=== PATIENT | female | born 1935 | race Caucasian/White ===

== ENCOUNTER 2022-08-14 22:47 | Observation (INO) | payer MEDICARE ==
[2022-08-14] MEDS ORDERED: ONDANSETRON 4 MG/2 ML VIAL IVP STA (23:01)
[2022-08-14] MEDS ORDERED: SODIUM CHLORIDE 0.9% 1,000 ML IV STA (23:01)
--- NOTE | 2022-08-14 23:03 | ED ---
Abdominal Pain HPI - General Chief Complaint: Abdominal Pain Stated Complaint: Diarrhea Time Seen by Provider: 08/14/22 23:00 Source: patient, RN notes reviewed, old records reviewed Mode of arrival: EMS Limitations: no limitations - History of Present Illness Initial Comments: This is a 86-year-old female DF for evaluation patient Dese for evaluation r egarding nausea vomiting diarrhea abdominal pain. She is on day 3 of these symptoms. Does not feel well calling EMS to come the hospital she cannot go to bed at home secondary to weakness. Patient continues to feel weak in the ER. No recent fevers still with no travel history no similar patient's her friends or sick contacts or similar symptoms MD Complaint: abdominal pain -: days(s) (3) Location: diffuse Radiation: none Migration to: epigastric, suprapubic Severity: moderate Severity scale (1-10): 4 Quality: cramping, aching Consistency: intermittent Improves With: nothing Associated Symptoms: nausea, vomiting, diarrhea Treatments Prior to Arrival: other (0) - Related Data Allergies Allergy/AdvReac Type Severity Reaction Status Date / Time lisinopril Allergy Unknown Verified 08/14/22 22:54 Review of Systems ROS Statement: Those systems with pertinent positive or pertinent negative responses have been documented in the HPI. ROS Other: All systems not noted in ROS Statement are negative. General Exam Limitations: no limitations General appearance: alert, in no apparent distress Head exam: Present: atraumatic, normocephalic, normal inspection Eye exam: Present: normal appearance, PERRL, EOMI. Absent: scleral icterus, conjunctival injection, periorbital swelling ENT exam: Present: normal exam, mucous membranes moist Neck exam: Present: normal inspection. Absent: tenderness, meningismus, lympha denopathy Respiratory exam: Present: normal lung sounds bilaterally. Absent: respiratory distress, wheezes, rales, rhonchi, stridor Cardiovascular Exam: Present: regular rate, normal rhythm, normal heart sounds. Absent: systolic murmur, diastolic murmur, rubs, gallop, clicks GI/Abdominal exam: Present: soft, normal bowel sounds. Absent: distended, tenderness, guarding, rebound, rigid Extremities exam: Present: normal inspection, full ROM, normal capillary refill. Absent: tenderness, pedal edema, joint swelling, calf tenderness Back exam: Present: normal inspection Neurological exam: Present: alert, oriented X3, CN II-XII intact Psychiatric exam: Present: normal affect, normal mood Skin exam: Present: warm, dry, intact, normal color. Absent: rash Course Vital Signs 08/14/22 22:57 Temperature 97.7 F Pulse Rate 75 Respiratory 16 Rate Blood Pressure 155/85 O2 Sat by Pulse 99 Oximetry - Reevaluation(s) Reevaluation #1: 08/15/22 01:53 Record is reviewed Reevaluation #2: 08/15/22 01:53 Patient still having episodes of vomiting and weakness Reevaluation #3: 08/15/22 01:53 Patient informed results and questions answered - Consultations Consultation #1: Spoke with admitting physicians will admit this patient Medical Decision Making - Medical Decision Making 6 female DF for evaluation persistent nausea vomiting and diarrhea abdominal pain. Patient be admitted for supportive care - Lab Data Result diagrams: 08/14/22 23:27 08/14/22 23:27 Lab Results 08/14/22 08/14/22 08/14/22 Range/Units 23:27 23:27 23:27 WBC 5.5 (3.8-10.6) k/uL RBC 4.49 (3.80-5.40) m/uL Hgb 14.4 (11.4-16.0) gm/dL Hct 41.0 (34.0-46.0) % MCV 91.5 (80.0-100.0) fL MCH 32.1 (25.0-35.0) pg MCHC 35.1 (31.0-37.0) g/dL RDW 13.3 (11.5-15.5) % Plt Count 245 (150-450) k/uL MPV 9.4 Neutrophils % 72 % Lymphocytes % 11 % Monocytes % 11 % Eosinophils % 1 % Basophils % 2 % Neutrophils # 4.0 (1.3-7.7) k/uL Lymphocytes # 0.6 L (1.0-4.8) k/uL Monocytes # 0.6 (0-1.0) k/uL Eosinophils # 0.1 (0-0.7) k/uL Basophils # 0.1 (0-0.2) k/uL Sodium 135 L (137-145) mmol/L Potassium 3.3 L (3.5-5.1) mmol/L Chloride 103 (98-107) mmol/L Carbon Dioxide 24 (22-30) mmol/L Anion Gap 8 mmol/L BUN 12 (7-17) mg/dL Creatinine 0.63 (0.52-1.04) mg/dL Est GFR (CKD-EPI)AfAm >90 (>60 ml/min/1.73 sqM) Est GFR (CKD-EPI)NonAf 83 (>60 ml/min/1.73 sqM) Glucose 89 (74-99) mg/dL Plasma Lactic Acid Edu 1.6 (0.7-2.0) mmol/L Calcium 8.9 (8.4-10.2) mg/dL Phosphorus 2.8 (2.5-4.5) mg/dL Magnesium 1.7 (1.6-2.3) mg/dL Total Bilirubin 0.5 (0.2-1.3) mg/dL AST 42 H (14-36) U/L ALT 27 (4-34) U/L Alkaline Phosphatase 94 (38-126) U/L Troponin I (0.000-0.034) ng/mL Total Protein 6.0 L (6.3-8.2) g/dL Albumin 3.6 (3.5-5.0) g/dL Lipase 89 (23-300) U/L 08/14/22 Range/Units 23:27 WBC (3.8-10.6) k/uL RBC (3.80-5.40) m/uL Hgb (11.4-16.0) gm/dL Hct (34.0-46.0) % MCV (80.0-100.0) fL MCH (25.0-35.0) pg MCHC (31.0-37.0) g/dL RDW (11.5-15.5) % Plt Count (150-450) k/uL MPV Neutrophils % % Lymphocytes % % Monocytes % % Eosinophils % % Basophils % % Neutrophils # (1.3-7.7) k/uL Lymphocytes # (1.0-4.8) k/uL Monocytes # (0-1.0) k/uL Eosinophils # (0-0.7) k/uL Basophils # (0-0.2) k/uL Sodium (137-145) mmol/L Potassium (3.5-5.1) mmol/L Chloride (98-107) mmol/L Carbon Dioxide (22-30) mmol/L Anion Gap mmol/L BUN (7-17) mg/dL Creatinine (0.52-1.04) mg/dL Est GFR (CKD-EPI)AfAm (>60 ml/min/1.73 sqM) Est GFR (CKD-EPI)NonAf (>60 ml/min/1.73 sqM) Glucose (74-99) mg/dL Plasma Lactic Acid Edu (0.7-2.0) mmol/L Calcium (8.4-10.2) mg/dL Phosphorus (2.5-4.5) mg/dL Magnesium (1.6-2.3) mg/dL Total Bilirubin (0.2-1.3) mg/dL AST (14-36) U/L ALT (4-34) U/L Alkaline Phosphatase (38-126) U/L Troponin I <0.012 (0.000-0.034) ng/mL Total Protein (6.3-8.2) g/dL Albumin (3.5-5.0) g/dL Lipase (23-300) U/L - Radiology Data Radiology results: report reviewed (CT of the abdomen and pelvis negative for acute disease), image reviewed Disposition Clinical Impression: Abdominal pain, Gastroenteritis, Nausea & vomiting Disposition: ADMITTED IP TO THIS [facility] Condition: Good Is patient prescribed a controlled substance at d/c from ED?: No Referrals: None,Stated [Primary Care Provider] - 1-2 days Time of Disposition: 02:00
[2022-08-14 23:59] LABS: ALT 27 U/L (4-34); AST 42 U/L (14-36); African American GFR (CKD) >90 (>60 ml/min/1.73 sqM); Albumin 3.6 g/dL (3.5-5.0); Alkaline Phosphatase 94 U/L (38-126); Anion Gap 8 mmol/L; Blood Urea Nitrogen 12 mg/dL (7-17); Calcium 8.9 mg/dL (8.4-10.2); Carbon Dioxide 24 mmol/L (22-30); Chloride 103 mmol/L (98-107); Glucose 89 mg/dL (74-99); Lipase 89 U/L (23-300); Magnesium 1.7 mg/dL (1.6-2.3); Non-African American GFR(CKD) 83 (>60 ml/min/1.73 sqM); Phosphorus 2.8 mg/dL (2.5-4.5); Potassium 3.3 mmol/L (3.5-5.1); Sodium 135 mmol/L (137-145); Total Bilirubin 0.5 mg/dL (0.2-1.3)
[2022-08-15 00:07] LABS: Basophils # (A) 0.1 k/uL (0-0.2); Basophils % (A) 2 %; Eosinophils # (A) 0.1 k/uL (0-0.7); Eosinophils % (A) 1 %; HGB 14.4 gm/dL (11.4-16.0); Lymphocytes # (A) 0.6 k/uL (1.0-4.8); Lymphocytes % (A) 11 %; MCH 32.1 pg (25.0-35.0); MCHC 35.1 g/dL (31.0-37.0); MCV 91.5 fL (80.0-100.0); Mean Platelet Volume 9.4; Monocytes # (A) 0.6 k/uL (0-1.0); Monocytes % (A) 11 %; Neutrophils % (A) 72 %; Platelet Count 245 k/uL (150-450); RBC 4.49 m/uL (3.80-5.40); RDW 13.3 % (11.5-15.5); WBC 5.5 k/uL (3.8-10.6)
[2022-08-15] MEDS ORDERED: MORPHINE SULFATE 4 MG/ML SYRINGE IVP STA (01:12)
--- NOTE | 2022-08-15 01:14 | CT ---
EXAMINATION TYPE: CT abdomen pelvis wo con DATE OF EXAM: 08/15/2022 COMPARISON: None HISTORY: ABD PAIN CT DLP: 678.4 mGycm Automated exposure control for dose reduction was used. Images obtained from the diaphragm to the floor the pelvis without contrast. There is some oral contr ast material in the large bowel. The lung bases are clear of consolidation. No pleural effusion. Heart is slightly enlarged. No perica rdial effusion. There is some fatty replacement of the liver. Gallbladder is intact. Spleen is intact. There is no ev idence of a gastric mass. There is no adrenal mass. Kidneys have normal size. No hydronephrosis. There is 3.7 cm cortical cyst lateral right kidney. No retroperitoneal adenopathy. Bladder distends smoothly. There is metal artifa ct from bilateral hip nailing. No evidence of a pelvic mass. There are numerous sigmoid diverticula. No diverticulitis. There is 7.2 cm aneurysm of the lower abdominal aorta. There is some thrombus on the posterior wall m easuring up to 1.3 cm in thickness. There is moderate vascular calcification in the abdominal aorta a nd the iliac arteries. The appendix is not clearly seen. No sign of thickened appendix. There is anterior wedging and compression deformity at L1 and T12 of approximately 50%. There is a mi ld kyphotic deformity at the thoracolumbar junction. The bony pelvis is intact. Sacroiliac joints are intact. IMPRESSION: Large lower abdominal aortic aneurysm. No evidence of a leak. Atherosclerotic vascular disease. Colonic diverticulosis without diverticulitis. Fatty infiltration of the liver.
[2022-08-15] MEDS ORDERED: POTASSIUM BICARBONATE/CIT AC 20 MEQ TABLET.EFF PO STA (01:21)
[2022-08-15] MEDS ORDERED: ONDANSETRON 4 MG/2 ML VIAL IVP PRN (01:51)
[2022-08-15] MEDS ORDERED: NALOXONE 0.4 MG/ML 1 ML VIAL IV PRN (01:51)
[2022-08-15] MEDS ORDERED: MORPHINE SULFATE 4 MG/ML SYRINGE IV PRN (01:51)
[2022-08-15] MEDS: SODIUM CHLORIDE 0.9% 1,000 ML IV SCH ×3 (02:02→20:21)
[2022-08-15] MEDS ORDERED: oxyCODONE-APAP 7.5-325MG 1 EACH TAB PO STA (04:19)
[2022-08-15] MEDS: oxyCODONE-APAP 7.5-325MG 1 EACH TAB PO PRN ×2 (11:33→21:54)
[2022-08-15] MEDS ORDERED: Magnesium Replacement Protocol 1 EACH MISC MISCELLANE PRN (12:12)
[2022-08-15] MEDS ORDERED: Potassium Replacement Protocol 1 EACH MISC MISCELLANE PRN (12:12)
[2022-08-15] MEDS: traZODone HCL 50 MG TAB PO SCH (20:21)
--- NOTE | 2022-08-15 22:50 | HP ---
HISTORY AND PHYSICAL CHIEF COMPLAINT: Abdominal pain, diarrhea. HISTORY OF PRESENT ILLNESS: This 86-year-old woman with a past medical history of multiple medical problems including hypertension, DJD, was complaining of abdominal pain and diarrhea for the last several days. The patient also notes she is not able to keep anything down. The patient called the EMS and was complaining of severe weakness, and admitted for further evaluation and treatment. CAT scan of the abdomen and pelvis showed no evidence of any diverticulitis, but only abdominal aortic aneurysm. The patient was found to be hyponatremia and hypokalemia. There is no history of any fever, rigors, or chills. PAST MEDICAL HISTORY: Reviewed, include hypertension. History and rest of the medication reviewed, rest of the chart is reviewed. HOME MEDICATIONS: Reviewed, include Desyrel dose and rest of medication reviewed. ALLERGIES: Lisinopril. FAMILY HISTORY: History of cancer. SOCIAL HISTORY: Previous history of smoking, occasional alcohol. REVIEW OF SYSTEMS: Fourteen-point review of systems negative as mentioned earlier. PHYSICAL EXAMINATION: VITAL SIGNS: Pulse is 84, blood pressure , respirations 19. HEENT: Conjunctivae normal. CARDIOVASCULAR: S1, S2 muffled. RESPIRATION: Breath sounds diminished at the bases. A few scattered rhonchi. ABDOMEN: Soft, mild diffuse discomfort. No guarding. No rigidity. No mass palpable. LEGS: No edema. NERVOUS SYSTEM: No focal deficits. LABS: WBC 5.4. Rest of the labs noted. ASSESSMENT: 1. Acute diarrheal disorder and acute gastroenteritis with severe dehydration. 2. Abdominal pain for evaluation. 3. Hypertension. 4. Hypokalemia. 5. Hyponatremia. RECOMMENDATIONS: This 86-year-old woman presented with multiple complex medical issues. We will monitor the patient closely. Recommend IV fluids. Repeat lytes. Repeat labs. Resume the home medications. Symptomatic treatment. We will check C difficile. Prognosis guarded because of multiple complex medical issues. Follow recommendations to follow. See orders for details. We will also check COVID-19 also. MMODL / IJN: [id number] /
[2022-08-16] MEDS: oxyCODONE-APAP 7.5-325MG 1 EACH TAB PO PRN ×3 (02:03→16:55)
[2022-08-16] MEDS: SODIUM CHLORIDE 0.9% 1,000 ML IV SCH ×3 (02:18→16:40)
[2022-08-16] MEDS: PANTOPRAZOLE 40 MG TABLET PO SCH (05:01)
[2022-08-16] MEDS: POTASSIUM CHLORIDE ER 20 MEQ TAB.ER PO SCH (08:14)
[2022-08-16] MEDS: amLODIPine 10 MG TAB PO SCH (08:14)
[2022-08-16] MEDS: ATORVASTATIN 40 MG TAB PO SCH (08:18)
[2022-08-16 08:58] LABS: Basophils # (A) 0.07 X 10*3/uL (0.00-0.10); Basophils % (A) 1.2 %; Eosinophils # (A) 0.16 X 10*3/uL (0.04-0.35); Eosinophils % (A) 2.7 %; HCT 41.1 % (37.2-46.3); HGB 13.6 g/dL (12.0-15.0); Immature Grans, Automated 0.3 %; Lymphocytes # (A) 0.99 X 10*3/uL (0.90-5.00); Lymphocytes % (A) 16.6 %; MCH 30.6 pg (27.0-32.0); MCHC 33.1 g/dL (32.0-37.0); MCV 92.6 fL (80.0-97.0); Mean Platelet Volume 10.8 fL (9.5-12.2); Monocytes # (A) 1.08 X 10*3/uL (0.20-1.00); Monocytes % (A) 18.1 %; NRBC Per 100 WBC 0 /100 WBCS (0.0-0.0); Neutrophils # (A) 3.64 X 10*3/uL (1.80-7.70); Neutrophils % (A) 61.1 %; Platelet Count 284 X 10*3/uL (140-440); RBC 4.44 X 10*6/uL (4.10-5.20); RDW 13.3 % (11.5-14.5); WBC 5.96 X 10*3/uL (4.50-10.00)
[2022-08-16 09:18] LABS: Albumin 3.8 g/dL (3.8-4.9); Albumin/Globulin Ratio 2.24 (1.60-3.17); Anion Gap 9.3 mmol/L (10.00-18.00); Blood Urea Nitrogen 7.8 mg/dL (9.0-27.0); Calcium 8.9 mg/dL (8.7-10.3); Carbon Dioxide 26.7 mmol/L (20.0-27.5); Globulin 1.7 g/dL (1.6-3.3); Magnesium 1.6 mg/dL (1.5-2.4); Non-African American GFR(CKD) 83.7 (60.0-200.0); Phosphorus 3.1 mg/dL (2.4-5.1); Potassium 3.8 mmol/L (3.5-5.5); Total Bilirubin 0.4 mg/dL (0.30-1.20); Total Protein 5.5 g/dL (6.2-8.2)
[2022-08-16] MEDS ORDERED: Magnesium Replacement Protocol 1 EACH MISC MISCELLANE PRN (11:00)
[2022-08-16] MEDS: MAGNESIUM SULFATE-D5W PMX 1 GM in DEXTROSE/WATER 1 100ML.BAG IVPB SCH ×2 (12:01→14:08)
[2022-08-16] MEDS: traZODone HCL 50 MG TAB PO SCH (21:07)
[2022-08-17] MEDS: SODIUM CHLORIDE 0.9% 1,000 ML IV SCH ×2 (02:00→20:35)
[2022-08-17] MEDS: oxyCODONE-APAP 7.5-325MG 1 EACH TAB PO PRN ×3 (02:43→21:39)
[2022-08-17] MEDS: PANTOPRAZOLE 40 MG TABLET PO SCH (05:42)
--- NOTE | 2022-08-17 06:03 | P.PN ---
Subjective Progress Note Date: 08/17/22 08/16/2022 Patient is seen in follow up today and is maintained on clear liquids. Recently admitted with abdominal pain, weakness, dehydration, and diarrhea. Patient reports improvement in nausea and vomiting and no further diarrhea and asking for advance in diet. Patient is up and walking with a walker to the bathroom and back and reports to working with PT/OT therapy. Being evaluated for weakness. Richard katy is refusing rehab if recommended and reports she will be going home. Patient is afebrile and denies chest pain or shortness of breath. Patient continued on IV hydration and will decrease the rate. Encouraged small frequent meals and slowly advance as tolerated. Will increase to low fiber and monitor for tolerance. C diff was ordered but patient has had no further bowel movements. Review of systems: Constitutional: No reports of fatigue, fever, or chills Cardiovascular: No reports of chest pain or palpitations Respiratory: No reports of shortness of breath or cough GI: No reports of nausea, vomiting, or diarrhea, reports passing gas : No reports of dysuria or retention Neurovascular: reports of generalized weakness, but feeling better All medications have been reviewed PHYSICAL EXAMINATION: GENERAL: The patient is currently awake, alert and oriented 3, Well developed, well nourished. HEENT: Pupils are round and equally reacting to light. EOMI. does have scleral icterus. No conjunctival pallor. Normocephalic, atraumatic. No pharyngeal erythema. No thyromegaly. CARDIOVASCULAR: S1 and S2 muffled PULMONARY: diminished breath sounds bilaterally with no wheezing or rhonchi noted. ABDOMEN: soft. non-tender on exam. non-distended, normoactive bowel sounds. No palpable organomegaly. MUSCULOSKELETAL: No joint swelling or deformity. EXTREMITIES: No cyanosis, clubbing, or pedal edema. NEUROLOGICAL: No gross neurological deficits noted. Diffuse weakness SKIN: No rashes. Assessment: Acute diarrheal disorder and acute gastroenteritis with severe dehydration Abdominal pain, improving hypertension hyperlipidemia Hypokalemia due to poor oral intake and diarrhea, improved hyponatremia due to poor oral intake and diarrhea, improved GI and DVT prophylaxis Full code Plan: Patient will be continued on gentle IV hydration Continued on clear liquids and tolerating reporting no further N/V/D and requesting increase in diet. Will advance to low fiber and monitor tolerance PT/OT to evaluate. Patient is refusing rehab and reports will be going home once discharged Case management/ social work following for discharge planning needs Possible discharge in 24 hours. The impression and plan of care has been dictated by Michelle Archuleta, prac titioner as directed. MD Gwendolyn I have performed a history and examination and MDM of this patient, discussed the same with the dictator, and agree with the dictator's assessment and plan as written ,documented as a scribe. Based on total visit time, I have performed more than 50% of the visit. Objective - Vital Signs Vital signs: Vital Signs Temp 97.7 F 08/16/22 07:00 Pulse 73 08/16/22 08:00 Resp 18 08/16/22 08:00 BP 145/79 08/16/22 07:00 Pulse Ox 91 L 08/16/22 07:00 FiO2 Intake & Output 08/15/22 08/16/22 08/16/22 18:59 06:59 18:59 Weight 80.286 kg Other: # Voids 3 2 - Labs CBC & Chem 7: 08/16/22 05:57 08/16/22 05:57 Labs: Abnormal Lab Results - Last 24 Hours (Table) 08/16/22 08/16/22 Range/Units 05:57 05:57 Monocytes # 1.08 H (0.20-1.00) X 10*3/uL Anion Gap 9.30 L (10.00-18.00) mmol/L BUN 7.8 L (9.0-27.0) mg/dL Glucose 112 H (70-110) mg/dL Total Protein 5.5 L (6.2-8.2) g/dL
[2022-08-17] MEDS: ATORVASTATIN 40 MG TAB PO SCH (09:32)
[2022-08-17] MEDS: amLODIPine 10 MG TAB PO SCH (09:32)
[2022-08-17] MEDS: POTASSIUM CHLORIDE ER 20 MEQ TAB.ER PO SCH (09:32)
[2022-08-17] MEDS: traZODone HCL 50 MG TAB PO SCH (20:35)
--- NOTE | 2022-08-18 05:33 | P.PN ---
Subjective Progress Note Date: 08/17/22 08/16/2022 Patient is seen in follow up today and is maintained on clear liquids. Recently admitted with abdominal pain, weakness, dehydration, and diarrhea. Patient reports improvement in nausea and vomiting and no further diarrhea and asking for advance in diet. Patient is up and walking with a walker to the bathroom and back and reports to working with PT/OT therapy. Being evaluated for weakness. Richard burns is refusing rehab if recommended and reports she will be going home. Patient is afebrile and denies chest pain or shortness of breath. Patient continued on IV hydration and will decrease the rate. Encouraged small frequent meals and slowly advance as tolerated. Will increase to low fiber and monitor for tolerance. C diff was ordered but patient has had no further bowel movements. 08/17/2022 Patient is seen this morning and lethargic but arousable. Patient reports to feeling tired and weak today. Patient reports she did have another episode of loose stool and have attempted to send for c diff, suspicion is low as patient has only had one bowel movement. Patient denies nausea or vomiting. Encouraged oral intake and increased activity as tolerated. Working on discharge planning. Patient is refusing rehab. Afebrile and denies chest pain or shortness of breath. Review of systems: Constitutional: reports of fatigue, no fever, or chills Cardiovascular: No reports of chest pain or palpitations Respiratory: No reports of shortness of breath or cough GI: No reports of nausea, vomiting, reports diarrhea last night x1, reports passing gas : No reports of dysuria or retention Neurovascular: reports of generalized weakness, but feeling better All medications have been reviewed PHYSICAL EXAMINATION: GENERAL: The patient is currently lethargic but arousable, alert and oriented 3, Well developed, well nourished. HEENT: Pupils are round and equally reacting to light. EOMI. does have scleral icterus. No conjunctival pallor. Normocephalic, atraumatic. No pharyngeal erythe ma. No thyromegaly. CARDIOVASCULAR: S1 and S2 muffled PULMONARY: diminished breath sounds bilaterally with no wheezing or rhonchi noted. ABDOMEN: soft. non-tender on exam. non-distended, normoactive bowel sounds. No palpable organomegaly. MUSCULOSKELETAL: No joint swelling or deformity. EXTREMITIES: No cyanosis, clubbing, or pedal edema. NEUROLOGICAL: No gross neurological deficits noted. Diffuse weakness SKIN: No rashes. Assessment: Acute diarrheal disorder and acute gastroenteritis with severe dehydration Abdominal pain, improving hypertension hyperlipidemia Hypokalemia due to poor oral intake and diarrhea, improved hyponatremia due to poor oral intake and diarrhea, improved GI and DVT prophylaxis Full code Plan: Patient will be continued on gentle IV hydration Continued on low fiber diet. and tolerating PT/OT to evaluate. Patient is refusing rehab and reports will be going home once discharged Case management/ social work following for discharge planning needs Will obtain am labs Possible discharge in 24 hours. The impression and plan of care has been dictated by Michelle Archuleta, nurse practitioner as directed. MD Gwendolyn I have performed a history and examination and MDM of this patient, discussed the same with the dictator, and agree with the dictator's assessment and plan as written ,documented as a scribe. Based on total visit time, I have performed more than 50% of the visit. Objective - Vital Signs Vital signs: Vital Signs Temp 98.1 F 08/17/22 12:48 Pulse 80 08/17/22 12:48 Resp 16 08/17/22 12:48 BP 119/66 08/17/22 12:48 Pulse Ox 98 08/17/22 12:48 FiO2 Intake & Output 08/16/22 08/17/22 08/17/22 18:59 06:59 18:59 Intake Total 600 358 Balance 600 358 Intake: Intake, IV Titration 100 Amount Magnesium Sulfate-D5w Pmx 100 1 gm In Dextrose/Water 1 100ml.bag @ 100 mls/hr IVPB Q1H ELIJAH Rx#: [id number] Oral 500 358 Other: Voiding Method Toilet # Voids 3 2 # Bowel Movements 1 - Labs CBC & Chem 7: 08/16/22 05:57 08/16/22 05:57
[2022-08-18] MEDS: PANTOPRAZOLE 40 MG TABLET PO SCH (06:13)
[2022-08-18] MEDS: oxyCODONE-APAP 7.5-325MG 1 EACH TAB PO PRN ×2 (09:21→15:47)
[2022-08-18] MEDS: amLODIPine 10 MG TAB PO SCH (09:21)
[2022-08-18] MEDS: ATORVASTATIN 40 MG TAB PO SCH (09:22)
[2022-08-18] MEDS: POTASSIUM CHLORIDE ER 20 MEQ TAB.ER PO SCH (09:22)
[2022-08-18 10:33] LABS: African American GFR (CKD) 92.2 (60.0-200.0); Anion Gap 6.9 mmol/L (10.00-18.00); BUN/Creat Ratio 12.14 Ratio (12.00-20.00); Blood Urea Nitrogen 8.5 mg/dL (9.0-27.0); Carbon Dioxide 27.1 mmol/L (20.0-27.5); Magnesium 1.8 mg/dL (1.5-2.4); Non-African American GFR(CKD) 79.6 (60.0-200.0); Potassium 4.2 mmol/L (3.5-5.5)
[2022-08-18 12:09] VITALS: BP 119/66; PULSE 76; RESP 16; TEMP 97.9
[2022-08-22] MEDS ORDERED: NON FORMULARY DRUG (Alendronate Sodium [Fosamax] 70 MG Tablet) PO SCH (09:00)
--- NOTE | 2022-08-22 15:07 | P.DS ---
Providers Date of admission: 08/15/22 01:51 Expected date of discharge: 08/18/22 Attending physician: Lisa Pelayo Primary care physician: Stated None Hospital Course: Final diagnosis Acute diarrheal disorder and acute gastroenteritis with severe dehydration Abdominal pain, improved hypertension hyperlipidemia Hypokalemia due to poor oral intake and diarrhea, improved hyponatremia due to poor oral intake and diarrhea, improved GI and DVT prophylaxis Full code Discharge disposition Patient is being discharged in a stable condition with guarded prognosis to home . Patient will follow-up with Dr. Morris or other resources in the outpatient setting upon discharge. Patient is to follow up as needed with ortho if back pain persists. Patient referred to the wound center with Dr. Lopez for her chronic leg skin changes per her request. Total time taken is greater than 35 minutes. Hospital course This is a 86-year-old female who was recently admitted weakness along with N/V/D and dehydration. Patient also with sciatic pain and reporting weakness. Patient was seen by PT recommending home with home care. Patient feeling improved and would like to go home. Patient reports she was not happy with her current pcp and would like to switch. Resources provided per her request. Patient also with sciatic back pain and given resources to follow up with orthopedics outpatient. Currently no reports of chest pain, shortness of breath, or palpitations. Patient is afebrile. No reports of nausea or vomiting and patient is tolerating diet. Patient will be discharged home today. Guarded prognosis. Physical exam: Gen: This is a 86 year old female who is awake, alert and oriented x3. well developed, well nourished HEENT: Head is atraumatic, normocephalic. Pupils equal, round. Sclerae is anicteric. NECK: Supple. No JVD. No lymphadenopathy. No thyromegaly. LUNGS: Clear to auscultation. No wheezes or rhonchi. No intercostal retractions. HEART: Regular rate and rhythm. No murmur. ABDOMEN: Soft. Bowel sounds are present. No masses. No tenderness. EXTREMITIES: No pedal edema. No calf tenderness. lower extremity chronic edema noted NEUROLOGICAL: Patient is awake, alert and oriented x3. Cranial nerves 2 through 12 are grossly intact. Please refer to medication reconciliation sheet for a list of medications. The impression and plan of care has been dictated by Michelle Archuleta, Nurse Practitioner as directed. Dr. Sheila MD I have performed a history and examination and MDM of this patient, discussed the same with the dictator, and agree with the dictator's assessment and plan as written ,documented as a scribe. Based on total visit time, I have performed more than 50% of the visit. Patient Condition at Discharge: Good Plan - Discharge Summary Discharge Rx Participant: Yes New Discharge Prescriptions: New oxyCODONE-APAP 7.5-325MG [Percocet 7.5-325 mg] 1 each PO Q4HR PRN #9 tab PRN Reason: Pain Furosemide [Lasix] 40 mg PO DAILY 30 Days #30 tablet Continue traZODone HCL [Desyrel] 25 mg PO HS amLODIPine [Norvasc] 10 mg PO DAILY Omeprazole [PriLOSEC] 20 mg PO DAILY Potassium Chloride [Klor-Con M20] 20 meq PO DAILY Atorvastatin Calcium [Lipitor] 40 mg PO DAILY Alendronate Sodium [Fosamax] 70 mg PO WEEKLY Discontinued Triamterene/Hydrochlorothiazid [Triamterene-Hctz 75-50 mg Tab] 1 tab PO DAILY Discharge Medication List Alendronate Sodium [Fosamax] 70 mg PO WEEKLY 08/15/22 [History] Atorvastatin Calcium [Lipitor] 40 mg PO DAILY 08/15/22 [History] Omeprazole [PriLOSEC] 20 mg PO DAILY 08/15/22 [History] Potassium Chloride [Klor-Con M20] 20 meq PO DAILY 08/15/22 [History] amLODIPine [Norvasc] 10 mg PO DAILY 08/15/22 [History] traZODone HCL [Desyrel] 25 mg PO HS 08/15/22 [History] Furosemide [Lasix] 40 mg PO DAILY 30 Days #30 tablet 08/18/22 [Rx] oxyCODONE-APAP 7.5-325MG [Percocet 7.5-325 mg] 1 each PO Q4HR PRN #9 tab 08/18/22 [Rx] Follow up Appointment(s)/Referral(s): Natalia Sinha DO [Doctor of Osteopathic Medicine] - 1 Week (PLEASE CALL AND SCHEDULE APPOINTMENT.) Andrew Morris MD [STAFF PHYSICIAN] - 1 Week Coleman Harris DO [STAFF PHYSICIAN] - 1 Week [facility] [NON-STAFF] - 1 Week (AGENCY WILL CONTACT YOU.) Delia Lopez MD [STAFF PHYSICIAN] - 08/31/22 1:30 pm called his office to make an appointment with Dr. Lopez at the wound care center at [facility] for lower extremity swelling and skin changes. Orthodontist Assistant called [facility] and staff stated that this patient would need to be seen at Dr. Lopez's office.) Patient Instructions/Handouts: Furosemide (By mouth), Oxycodone/Acetaminophen (By mouth), Dehydration (DC), Gastroenteritis (DC) Activity/Diet/Wound Care/Special Instructions: Activity Limited until follow-up Follow-up with primary care provider on discharge and establish Follow-up outpatient with orthopedics for your back pain Follow-up with cardiology outpatient Continue using compression stockings or OMAR hose to bilateral lower extremities and elevate while at rest Discharge Disposition: HOME WITH HOME HEALTH SERVICES
== END 2022-08-18 17:18 | disposition home health service (06) ==
LOC: EC 22:47 → 6NMEDSUR 08-15 01:51
PROVIDERS: ADMIT Hospitalist; ATTEND Hospitalist
DX: K52.9 Noninfective gastroenteritis and colitis, unspecified (principal); E86.0 Dehydration; E87.1 Hypo-osmolality and hyponatremia; E87.6 Hypokalemia; K76.0 Fatty (change of) liver, not elsewhere classified; K57.30 Diverticulosis of large intestine without perforation or abscess without bleeding; I71.40 Abdominal aortic aneurysm, without rupture, unspecified; M48.55XA Collapsed vertebra, not elsewhere classified, thoracolumbar region, initial encounter for fracture; I25.10 Atherosclerotic heart disease of native coronary artery without angina pectoris; E78.5 Hyperlipidemia, unspecified; I10 Essential (primary) hypertension; N28.1 Cyst of kidney, acquired; Z88.8 Allergy status to other drugs, medicaments and biological substances; Z87.891 Personal history of nicotine dependence; Z80.9 Family history of malignant neoplasm, unspecified
CPT/HCPCS: 96365; 96366; 96360; 96361; 96375 ×2; 99285; 36415; 97530; 97162; 97535; 97166; 80053 ×2; 80048; 83605; 83690; 83735 ×4; 84100 ×2; 84484; 85025 ×2; 74176; G0378 ×4; J2270; J2405; J3475

== ENCOUNTER 2024-02-13 21:09 | Inpatient (IN) | payer MEDICARE ==
[2024-02-13 21:22] LABS: Glucose,Whole Blood 94 mg/dL (70-110)
[2024-02-13] MEDS: SODIUM CHLORIDE 0.9% 1,000 ML IV STA (22:07)
--- NOTE | 2024-02-13 22:11 | XR ---
EXAMINATION TYPE: XR chest 1V portable DATE OF EXAM: 02/13/2024 10:01 PM CLINICAL INDICATION:Female, 88 years old with history of trauma; [facility] COMPARISON: None TECHNIQUE: XR chest 1V portable Frontal view of the chest. FINDINGS: Lungs/Pleura: There is no evidence of pleural effusion, focal consolidation, or pneumothorax. Pulmonary vascularity: Pulmonary vascular congestion. Heart/mediastinum: Cardiomediastinal silhouette is enlarged and stable. Musculoskeletal: No acute osseous pathology. IMPRESSION: Cardiomegaly and mild pulmonary vascular congestion. Correlate with BNP for congestive heart failure.
[2024-02-13 22:13] LABS: Basophils % (A) 1 %; Eosinophils # (A) 0.1 k/uL (0-0.7); Eosinophils % (A) 2 %; HCT 48.1 % (34.0-46.0); HGB 16.3 gm/dL (11.4-16.0); Lymphocytes # (A) 0.5 k/uL (1.0-4.8); Lymphocytes % (A) 7 %; MCH 30.7 pg (25.0-35.0); MCHC 33.9 g/dL (31.0-37.0); MCV 90.7 fL (80.0-100.0); Mean Platelet Volume 9.1; Monocytes # (A) 0.4 k/uL (0-1.0); Monocytes % (A) 6 %; Neutrophils # (A) 5.9 k/uL (1.3-7.7); Neutrophils % (A) 82 %; Platelet Count 355 k/uL (150-450); RDW 12.8 % (11.5-15.5); WBC 7.2 k/uL (3.8-10.6)
--- NOTE | 2024-02-13 22:13 | XR ---
EXAMINATION TYPE: XR pelvis AP view DATE OF EXAM: 02/13/2024 10:01 PM CLINICAL INDICATION:Female, 88 years old with history of Trauma; COMPARISON: None TECHNIQUE: The pelvis was examined in a single projection. FINDINGS: Fixation hardware in the bilateral hips. Remote appearing fractures bilaterally. Lucency th rough the left inferior pubic ramus. Hardware appears intact. There is no soft tissue abnormality. P elvic fullness are present. The spine appears intact. The hips appear intact. Osteophyte formation of the superior acetabulum bilaterally with moderate joint space narrowing. IMPRESSION: 1. Left inferior pubic ramus lucency suspicious for nondisplaced fracture. 2. Fixation hardware in the bilateral hips. Remote appearing fractures bilaterally of the femurs. No definitive acute fracture visualized of the femurs. 3. Moderate bilateral hip osteoarthrosis.
[2024-02-13 22:17] LABS: Partial Thromboplastin Time 23.2 sec (22.0-30.0); Prothrombin Time 10.9 sec (10.0-12.5)
[2024-02-13] MEDS: ONDANSETRON 4 MG/2 ML VIAL IVP STA (22:29)
[2024-02-13 22:33] LABS: ALT 35 U/L (4-34); African American GFR (CKD) >90 (>60 ml/min/1.73 sqM); Anion Gap 13 mmol/L; Blood Urea Nitrogen 5 mg/dL (7-17); Carbon Dioxide 17 mmol/L (22-30); Chloride 83 mmol/L (98-107); Glucose 83 mg/dL (74-99); Non-African American GFR(CKD) >90 (>60 ml/min/1.73 sqM); Total Bilirubin 1.6 mg/dL (0.2-1.3)
[2024-02-13 22:43] LABS: Alcohol 87 mg/dL; Sodium 113 mmol/L (137-145)
[2024-02-13 22:44] LABS: AST 69 U/L (14-36); Alkaline Phosphatase 112 U/L (38-126); Potassium 4.1 mmol/L (3.5-5.1)
[2024-02-13 22:46] LABS: Albumin 4.9 g/dL (3.5-5.0); Total Protein 7.7 g/dL (6.3-8.2)
[2024-02-13 22:56] LABS: Appearance,Urine Clear (Clear); Bilirubin,Urine Negative (Negative); Blood,Urine Negative (Negative); Color,Urine Colorless; Glucose,Urine (UA) Negative (Negative); Ketones,Urine Negative (Negative); Leukocyte Esterase,Urine Negative (Negative); Nitrite,Urine Negative (Negative); PH, Urine 5.5 (5.0-8.0); Protein,Urine Negative (Negative); Specific Gravity,Urine 1.018 (1.001-1.035); Urobilinogen,Urine <2.0 mg/dL (<2.0)
[2024-02-13 23:27] LABS: Amphetamine Screen,Urine Not Detected (NotDetected); Barbiturate Screen,Urine Not Detected (NotDetected); Benzodiazepines Screen,Urine Not Detected (NotDetected); Cocaine Screen,Urine Not Detected (NotDetected); Methadone Screen, Urine Not Detected (NotDetected); Opiate Screen,Urine Not Detected (NotDetected); Oxycodone Screen, Urine Not Detected (NotDetected); Phencyclidine Screen,Urine Not Detected (NotDetected); Tricyclic Antidepressant,Urine Not Detected (NotDetected); Urn Cannabinoid Scrn Not Detected (NotDetected)
--- NOTE | 2024-02-13 23:29 | ED ---
General Adult HPI - General Source: patient, EMS, RN notes reviewed, old records reviewed Mode of arrival: EMS <Alvino Proctor - Last Filed: 02/14/24 02:22> <Jeff Schmid - Last Filed: 02/14/24 03:07> - General Chief complaint: Fall Stated complaint: Fall Time Seen by Provider: 02/13/24 21:30 - History of Present Illness Initial comments: Patient is an 88-year-old female who presents emergency department complaining of a fall. Apparently patient lost her balance and fell, landing on the toilet. Landed on her bottom. Did not hit her head. No loss of conscious. Positive alcohol. Negative blood thinners. Patient has no other acute complaints at this time other than mild nausea. Presents for further evaluation at this time. (Alvino Proctor) - Related Data Home Medications Medication Instructions Recorded Confirmed Alendronate Sodium [Fosamax] 70 mg PO WEEKLY 08/15/22 08/15/22 Atorvastatin Calcium [Lipitor] 40 mg PO DAILY 08/15/22 08/15/22 Omeprazole [PriLOSEC] 20 mg PO DAILY 08/15/22 08/15/22 Potassium Chloride [Klor-Con M20] 20 meq PO DAILY 08/15/22 08/15/22 amLODIPine [Norvasc] 10 mg PO DAILY 08/15/22 08/15/22 traZODone HCL [Desyrel] 25 mg PO HS 08/15/22 08/15/22 Previous Rx's Medication Instructions Recorded Furosemide [Lasix] 40 mg PO DAILY 30 Days #30 tablet 08/18/22 oxyCODONE-APAP 7.5-325MG [Percocet 1 each PO Q4HR PRN #9 tab 08/18/22 7.5-325 mg] Allergies Allergy/AdvReac Type Severity Reaction Status Date / Time lisinopril Allergy Unknown Verified 02/13/24 21:18 Review of Systems ROS Other: All systems not noted in ROS Statement are negative. <Alvino Proctor - Last Filed: 02/14/24 02:22> ROS Other: All systems not noted in ROS Statement are negative. <Jeff Schmid - Last Filed: 02/14/24 03:07> ROS Statement: Those systems with pertinent positive or pertinent negative responses have been documented in the HPI. Review of Systems: CONST: Denies fever EYES: Denies blurry vision ENT: Denies nasal congestion C/V: Denies Chest pain RESP: Denies shortness of breath GI: Denies abdominal pain : Denies dysuria SKIN: Denies rash. MSK: Denies joint pain. NEURO: Denies headache (Alvino Proctor) Past Medical History Past Medical History: Hypertension, Osteoarthritis (OA) History of Any Multi-Drug Resistant Organisms: None Reported Past Surgical History: Appendectomy Additional Past Surgical History / Comment(s): lithotripsy toe amputation Past Anesthesia/Blood Transfusion Reactions: No Reported Reaction Past Psychological History: Depression Smoking Status: Former smoker Past Alcohol Use History: Occasional Past Drug Use History: None Reported - Past Family History Sister(s) Family Medical History: Cancer Additional Family Medical History / Comment(s): esophagheal Mother Family Medical History: Cancer Additional Family Medical History / Comment(s): breast cancer <Alvino Proctor - Last Filed: 02/14/24 02:22> General Exam <Alvino Proctor - Last Filed: 02/14/24 02:22> - General Exam Comments Initial Comments: General: Appears in no acute distress. Appears mildly intoxicated with alcohol. HEAD: Normal with no signs of head trauma. Mojica sign. Negative raccoon eyes. EYES: PERRLA, EOMI, conjunctiva normal, no discharge. Pupils are 3 mm and equal bilaterally. ENT: Hearing grossly intact, normal oropharynx. Dry mucous membranes. RESPIRATORY: Clear breath sounds bilaterally. No wheezes, rales, or rhonchi. C/V: Regular rate and rhythm. S1 and S2 auscultated, no edema, peripheral pulses 2+ and intact throughout ABD: Abd is soft, nontender, nondistended EXT: Normal range of motion, no obvious deformity. Pelvis is stable. No midline cervical, thoracic, lumbar spine tenderness to palpation. SKIN: No rashes or lesions observed on exposed skin. NEURO: Alert and oriented x 4. Cranial nerves II-XII intact. No focal sensory or strength deficits. ECS of 15. (Alvino Proctor) Course Vital Signs 02/13/24 02/13/24 02/13/24 21:14 22:12 23:53 Temperature 97.8 F Pulse Rate 74 74 75 Respiratory 18 18 17 Rate Blood Pressure 145/75 120/63 160/96 O2 Sat by Pulse 98 95 93 L Oximetry 02/14/24 01:03 Temperature Pulse Rate 76 Respiratory 17 Rate Blood Pressure 179/95 O2 Sat by Pulse 96 Oximetry Medical Decision Making - Lab Data Result diagrams: 02/13/24 21:55 02/13/24 21:56 - EKG Data -: EKG Interpreted by Me <Alvino Proctor - Last Filed: 02/14/24 02:22> - Lab Data Result diagrams: 02/13/24 21:55 02/14/24 02:22 <Jeff Schmid - Last Filed: 02/14/24 03:07> - Medical Decision Making Was pt. sent in by a medical professional or institution (, PA, TIME ANALYSIS CLERK, urgent c are, hospital, or long term...) When possible be specific @ -No Did you speak to anyone other than the patient for history (EMS, parent, family, police, friend...)? What history was obtained from this source @ -No Did you review nursing and triage notes (agree or disagree)? Why? @ -I reviewed and agree with nursing and triage notes Were old charts reviewed (outside hosp., previous admission, EMS record, old EKG, old radiological studies, urgent care reports/EKG's, long term records)? Report findings @ -Old imaging reviewed which did show prior AAA. This is from August 2022. Differential Diagnosis (chest pain, altered mental status, abdominal pain women, abdominal pain men, vaginal bleeding, weakness, fever, dyspnea, syncope, headache, dizziness, GI bleed, back pain, seizure, CVA, palpatations, mental health, musculoskeletal)? @ -Differential Musculoskeletal Muscular strain, contusion, ligament sprain, fracture, arthritis, septic arthritis, bursitis, cellulitis, muscle spasm, nerve compression, DVT, arterial occlusion, herpes zoster, electrolyte abnormality, tumor.... This is not meant to be in all inclusive list EKG interpreted by me (3pts min.). @ -As above X-rays interpreted by me (1pt min.). @ -Chest x-ray reveals no obvious acute process that is traumatic. Pelvis x- ray shows possible inferior pubic rami fracture. CT interpreted by me (1pt min.). @ -CT brain and C-spine reveals no obvious acute injury. CT pelvis shows no obvious acute fracture. CT angiogram of the aorta still pending. U/S interpreted by me (1pt. min.). @ -None done What testing was considered but not performed or refused? (CT, X-rays, U/S, labs)? Why? @ -None What meds were considered but not given or refused? Why? @ -None Did you discuss the management of the patient with other professionals (professionals i.e. , PA, TIME ANALYSIS CLERK, lab, RT, psych nurse, rn social work, layout artist, t eacher, corporate ethics officer, case monitor)? Give summary @ -With Antonio of ICU who was in agreement with plan for repeat sodium and maintenance fluids at this time. Was smoking cessation discussed for >3mins.? @ -No Was critical care preformed (if so, how long)? @ -No Were there social determinants of health that impacted care today? How? (Homelessness, low income, unemployed, alcoholism, drug addiction, transportation, low edu. Level, literacy, decrease access to med. care, group home, rehab)? @ -No Was there de-escalation of care discussed even if they declined (Discuss DNR or withdrawal of care, Hospice)? DNR status @ -No What co-morbidities impacted this encounter? (DM, HTN, Smoking, COPD, CAD, C ancer, CVA, ARF, Chemo, Hep., AIDS, mental health diagnosis, sleep apnea, morbid obesity)? @ -None Was patient admitted / discharged? Hospital course, mention meds given and route, prescriptions, significant lab abnormalities, going to OR and other pertinent info. @ -Patient presents after a low risk fall from standing landing on her bottom on the toilet. Did not lose consciousness. Patient is acutely toxic with alcohol. She is the only historian at this time. Is alert and oriented x 4. I did discuss with the patient she did consent to CT imaging of the brain due to her age. does not appear to be on blood thinners. Has no other acute complaints at this time. Laboratory studies will also be obtained. She will be symptomatically treat with IV fluids as she does appear dehydrated. Patient is also acutely toxic with alcohol. Pelvis x-ray shows possible inferior pubic rami fracture and therefore we will obtain CT of the pelvis. CT angiogram of the aorta was added on as patient has AAA and on kitchen utility associate images does appear to be slightly enlarged. Laboratory studies returned remarkable for alcohol intoxication with a level of 87. Patient is hyponatremic to 113 and hypochloremic to 83. I do believe this is likely secondary to dehydration as patient clinically appears dehydrated. She was already given a [address] brain, C-spine, pelvis negative for any obvious acute injury. CTA still pending. Signed out to Dr. Schmid pending results of imaging. Discussed w [facility] ICU MLP Antonio who was in agreement with plan for maintenance fluids and repeat sodium at 2 AM. Undiagnosed new problem with uncertain prognosis? @ -No Drug Therapy requiring intensive monitoring for toxicity (Heparin, Nitro, Insulin, Cardizem)? @ -No Were any procedures done? @ -No (Alvino Proctor) - Lab Data Lab Results 02/13/24 02/13/24 02/13/24 Range/Units 21:21 21:55 21:56 WBC 7.2 (3.8-10.6) k/uL RBC 5.30 (3.80-5.40) m/uL Hgb 16.3 H (11.4-16.0) gm/dL Hct 48.1 H (34.0-46.0) % MCV 90.7 (80.0-100.0) fL MCH 30.7 (25.0-35.0) pg MCHC 33.9 (31.0-37.0) g/dL RDW 12.8 (11.5-15.5) % Plt Count 355 (150-450) k/uL MPV 9.1 Neutrophils % 82 % Lymphocytes % 7 % Monocytes % 6 % Eosinophils % 2 % Basophils % 1 % Neutrophils # 5.9 (1.3-7.7) k/uL Lymphocytes # 0.5 L (1.0-4.8) k/uL Monocytes # 0.4 (0-1.0) k/uL Eosinophils # 0.1 (0-0.7) k/uL Basophils # 0.0 (0-0.2) k/uL PT 10.9 (10.0-12.5) sec INR 1.0 (<1.2) APTT 23.2 (22.0-30.0) sec Sodium (137-145) mmol/L Potassium (3.5-5.1) mmol/L Chloride (98-107) mmol/L Carbon Dioxide (22-30) mmol/L Anion Gap mmol/L BUN (7-17) mg/dL Creatinine (0.52-1.04) mg/dL Est GFR (CKD-EPI)AfAm (>60 ml/min/1.73 sqM) Est GFR (CKD-EPI)NonAf (>60 ml/min/1.73 sqM) Glucose (74-99) mg/dL POC Glucose (mg/dL) 94 (70-110) mg/dL POC Glu Skin Care Instructor ID Leon Cummings Calcium (8.4-10.2) mg/dL Total Bilirubin (0.2-1.3) mg/dL AST (14-36) U/L ALT (4-34) U/L Alkaline Phosphatase (38-126) U/L Total Protein (6.3-8.2) g/dL Albumin (3.5-5.0) g/dL Urine Color Urine Appearance (Clear) Urine pH (5.0-8.0) Ur Specific [place] (1.001-1.035) Urine Protein (Negative) Urine Glucose (UA) (Negative) Urine Ketones (Negative) Urine Blood (Negative) Urine Nitrite (Negative) Urine Bilirubin (Negative) Urine Urobilinogen (<2.0) mg/dL Ur Leukocyte Esterase (Negative) Urine Opiates Screen (NotDetected) Ur Oxycodone Screen (NotDetected) Urine Methadone Screen (NotDetected) Ur Barbiturates Screen (NotDetected) U Tricyclic Antidepress (NotDetected) Ur Phencyclidine Scrn (NotDetected) Ur Amphetamines Screen (NotDetected) U Methamphetamines Scrn (NotDetected) U Benzodiazepines Scrn (NotDetected) Urine Cocaine Screen (NotDetected) U Marijuana (THC) Screen (NotDetected) Serum Alcohol mg/dL Blood Type Blood Type Recheck Bld Type Recheck Status Antibody Screen Spec Expiration Date 02/13/24 02/13/24 02/13/24 Range/Units 21:56 22:05 22:25 WBC (3.8-10.6) k/uL RBC (3.80-5.40) m/uL Hgb (11.4-16.0) gm/dL Hct (34.0-46.0) % MCV (80.0-100.0) fL MCH (25.0-35.0) pg MCHC (31.0-37.0) g/dL RDW (11.5-15.5) % Plt Count (150-450) k/uL MPV Neutrophils % % Lymphocytes % % Monocytes % % Eosinophils % % Basophils % % Neutrophils # (1.3-7.7) k/uL Lymphocytes # (1.0-4.8) k/uL Monocytes # (0-1.0) k/uL Eosinophils # (0-0.7) k/uL Basophils # (0-0.2) k/uL PT (10.0-12.5) sec INR (<1.2) APTT (22.0-30.0) sec Sodium 113 L* (137-145) mmol/L Potassium 4.1 (3.5-5.1) mmol/L Chloride 83 L (98-107) mmol/L Carbon Dioxide 17 L (22-30) mmol/L Anion Gap 13 mmol/L BUN 5 L (7-17) mg/dL Creatinine 0.44 L (0.52-1.04) mg/dL Est GFR (CKD-EPI)AfAm >90 (>60 ml/min/1.73 sqM) Est GFR (CKD-EPI)NonAf >90 (>60 ml/min/1.73 sqM) Glucose 83 (74-99) mg/dL POC Glucose (mg/dL) (70-110) mg/dL POC Glu Skin Care Instructor ID Calcium 9.0 (8.4-10.2) mg/dL Total Bilirubin 1.6 H (0.2-1.3) mg/dL AST 69 H (14-36) U/L ALT 35 H (4-34) U/L Alkaline Phosphatase 112 (38-126) U/L Total Protein 7.7 (6.3-8.2) g/dL Albumin 4.9 (3.5-5.0) g/dL Urine Color Colorless Urine Appearance Clear (Clear) Urine pH 5.5 (5.0-8.0) Ur Specific [place] 1.018 (1.001-1.035) Urine Protein Negative (Negative) Urine Glucose (UA) Negative (Negative) Urine Ketones Negative (Negative) Urine Blood Negative (Negative) Urine Nitrite Negative (Negative) Urine Bilirubin Negative (Negative) Urine Urobilinogen <2.0 (<2.0) mg/dL Ur Leukocyte Esterase Negative (Negative) Urine Opiates Screen Not Detected (NotDetected) Ur Oxycodone Screen Not Detected (NotDetected) Urine Methadone Screen Not Detected (NotDetected) Ur Barbiturates Screen Not Detected (NotDetected) U Tricyclic Antidepress Not Detected (NotDetected) Ur Phencyclidine Scrn Not Detected (NotDetected) Ur Amphetamines Screen Not Detected (NotDetected) U Methamphetamines Scrn Not Detected (NotDetected) U Benzodiazepines Scrn Not Detected (NotDetected) Urine Cocaine Screen Not Detected (NotDetected) U Marijuana (THC) Screen Not Detected (NotDetected) Serum Alcohol 87 mg/dL Blood Type B Positive Blood Type Recheck No Previous Record Bld Type Recheck Status CABO Indicated Antibody Screen NEGATIVE Spec Expiration Date 02/16/2024230402/14/24 Range/Units 02:22 WBC (3.8-10.6) k/uL RBC (3.80-5.40) m/uL Hgb (11.4-16.0) gm/dL Hct (34.0-46.0) % MCV (80.0-100.0) fL MCH (25.0-35.0) pg MCHC (31.0-37.0) g/dL RDW (11.5-15.5) % Plt Count (150-450) k/uL MPV Neutrophils % % Lymphocytes % % Monocytes % % Eosinophils % % Basophils % % Neutrophils # (1.3-7.7) k/uL Lymphocytes # (1.0-4.8) k/uL Monocytes # (0-1.0) k/uL Eosinophils # (0-0.7) k/uL Basophils # (0-0.2) k/uL PT (10.0-12.5) sec INR (<1.2) APTT (22.0-30.0) sec Sodium 116 L* (137-145) mmol/L Potassium 3.3 L (3.5-5.1) mmol/L Chloride 89 L (98-107) mmol/L Carbon Dioxide 22 (22-30) mmol/L Anion Gap 5 mmol/L BUN 4 L (7-17) mg/dL Creatinine 0.39 L (0.52-1.04) mg/dL Est GFR (CKD-EPI)AfAm >90 (>60 ml/min/1.73 sqM) Est GFR (CKD-EPI)NonAf >90 (>60 ml/min/1.73 sqM) Glucose 86 (74-99) mg/dL POC Glucose (mg/dL) (70-110) mg/dL POC Glu Skin Care Instructor ID Calcium 8.6 (8.4-10.2) mg/dL Total Bilirubin (0.2-1.3) mg/dL AST (14-36) U/L ALT (4-34) U/L Alkaline Phosphatase (38-126) U/L Total Protein (6.3-8.2) g/dL Albumin (3.5-5.0) g/dL Urine Color Urine Appearance (Clear) Urine pH (5.0-8.0) Ur Specific [place] (1.001-1.035) Urine Protein (Negative) Urine Glucose (UA) (Negative) Urine Ketones (Negative) Urine Blood (Negative) Urine Nitrite (Negative) Urine Bilirubin (Negative) Urine Urobilinogen (<2.0) mg/dL Ur Leukocyte Esterase (Negative) Urine Opiates Screen (NotDetected) Ur Oxycodone Screen (NotDetected) Urine Methadone Screen (NotDetected) Ur Barbiturates Screen (NotDetected) U Tricyclic Antidepress (NotDetected) Ur Phencyclidine Scrn (NotDetected) Ur Amphetamines Screen (NotDetected) U Methamphetamines Scrn (NotDetected) U Benzodiazepines Scrn (NotDetected) Urine Cocaine Screen (NotDetected) U Marijuana (THC) Screen (NotDetected) Serum Alcohol mg/dL Blood Type Blood Type Recheck Bld Type Recheck Status Antibody Screen Spec Expiration Date - EKG Data EKG Comments: 12-lead Electrocardiogram Interpretation Note EKG was reviewed and interpreted by myself. 12-lead ECG performed at 2128 is interpreted by me as revealing normal sinus rhythm at a rate of 76 beats per minute. Left axis deviation. [place] interval is 193 ms, QRS duration is 94 ms, QTc is 443 ms.. There were no ST or T wave abnormalities to suggest myocardial ischemia or injury. R wave progression across the precordium was satisfactory. By my interpretation this EKG is non-diagnostic for acute ischemia. (Alvino Proctor) Disposition <Alvino Proctor - Last Filed: 02/14/24 02:22> Is patient prescribed a controlled substance at d/c from ED?: No Time of Disposition: 03:07 <Jeff Schmid - Last Filed: 02/14/24 03:07> Clinical Impression: Fall, Hyponatremia Disposition: ADMITTED IP TO THIS HOSP Condition: Serious Referrals: Andrew Morris MD [Primary Care Provider] - 1-2 days
--- NOTE | 2024-02-14 00:24 | CT ---
EXAM: CT Head Without Intravenous Contrast CLINICAL HISTORY: ITS.REASON CT Reason: trauma TECHNIQUE: Axial computed tomography images of the head/brain without intravenous contrast. CTDI is 45.2 mGy and DLP is 1044 mGy-cm. This CT exam was performed using one or more of the following dose reduction techniques: automated exposure control, adjustment of the mA and/or kV according to patient size, and/or use of iterative reconstruction technique. COMPARISON: No relevant prior studies available. FINDINGS: No acute intracranial hemorrhage. No midline shift or mass effect. The territorial camara-white matter differentiation is maintained throughout. Age-related cerebral volume loss. Periventricular and subcortical white matter hypoattenuation, consistent with chronic microangiopathy. The visualized orbits appear grossly unremarkable. The calvarium is intact. The visualized paranasal sinuses and mastoid air cells are grossly clear. IMPRESSION: No acute intracranial hemorrhage, midline shift, or mass effect. EXAM: CT Cervical Spine Without Intravenous Contrast CLINICAL HISTORY: ITS.REASON CT Reason: trauma TECHNIQUE: Axial computed tomography images of the cervical spine without intravenous contrast. CTDI is 10.4 mGy and DLP is 285.7 mGy-cm. This CT exam was performed using one or more of the following dose reduction techniques: automated exposure control, adjustment of the mA and/or kV according to patient size, and/or use of iterative reconstruction technique. COMPARISON: No relevant prior studies available. FINDINGS: The vertebral body heights are maintained. The craniocervical junction is intact. The atlanto-dens interval is maintained. The dens is intact. There is no spondylolisthesis. Multilevel cervical spondylosis and degenerative disc disease. Straightening of the cervical lordosis. The unenhanced neck soft tissues are grossly unremarkable. The visualized lung apices are grossly clear. IMPRESSION: No acute fracture or subluxation of the cervical spine.
[2024-02-14] MEDS: SODIUM CHLORIDE 0.9% 1,000 ML IV SCH ×2 (01:03→18:20)
--- NOTE | 2024-02-14 02:01 | CT ---
EXAM: CT Pelvis Without Intravenous Contrast CLINICAL HISTORY: eval for pubic ramus fracture. TECHNIQUE: Axial computed tomography images of the pelvis without intravenous contrast. CTDI is 12.1 mGy and DLP is 408.5 mGy-cm. This CT exam was performed using one or more of the following dose reduction techniques: automated exposure control, adjustment of the mA and/or kV according to patient size, and/or use of iterative reconstruction technique. COMPARISON: Pelvic radiograph performed earlier; CT pelvis 08/15/2022 FINDINGS: Bones/joints: No acute osseous traumatic injury identified involving the pelvic bones. Prior ORIF of both proximal femurs is stable in appearance. No dislocation. Degenerative changes noted involving the lumbar spine with prominent multilevel bilateral facet hypertrophic changes. Soft tissues: No significant overlying acute traumatic soft tissue abnormality. Vasculature: Fusiform infrarenal abdominal aortic aneurysm is again noted measuring 8.1 cm and AP diameter, larger when compared to the previous CT examination, measuring 7 cm at that time. No definite acute periaortic abnormality. For further details, please see the CT report of the abdomen and pelvis performed the same day. Bladder: Unremarkable. No stones. IMPRESSION: No acute osseous traumatic injury involving the pelvis. Incidental findings, as noted above.
--- NOTE | 2024-02-14 02:19 | CT ---
EXAM: CT Angiography Chest With Intravenous Contrast CLINICAL HISTORY: ABD PAIN HX OF AAA TECHNIQUE: Axial computed tomographic angiography images of the chest with intravenous contrast using aortic dissection protocol. CTDI is 21.5 mGy and DLP is 1402.8 mGy-cm. This CT exam was performed using one or more of the following dose reduction techniques: automated exposure control, adjustment of the mA and/or kV according to patient size, and/or use of iterative reconstruction technique. MIP reconstructed images were created and reviewed. COMPARISON: No relevant prior studies available. FINDINGS: Aorta: The ascending aorta is within normal limits in caliber, with the mid ascending aorta measuring 3.9 x 3.8 cm. The aortic arch and descending aorta are normal in caliber. No dissection. No intimal wall abnormality noted on precontrast imaging. No acute periaortic abnormality identified. Atherosclerotic calcification incidentally noted. Great vessels of aortic arch: No acute findings. No dissection. No arterial occlusion or significant stenosis. Lungs: A focal area of ground-glass opacity in the peripheral right upper lobe juxtapleural region measures 9 mm in AP diameter. Juxtapleural soft tissue nodule with some irregular angled margins measures 8 x 10 mm. No focal airspace consolidation. Pleural space: Unremarkable. No significant effusion. No pneumothorax. Heart: Cardiac chambers are upper normal limits. No pericardial effusion. Mild coronary artery calcification. Bones/joints: Prominent chronic compression at T12 and L1 levels with accentuated kyphosis. Less prominent loss of height noted at T4 level. A subacute healing left lateral fifth rib fracture is noted with callus formation. A subacute healing fracture involving the anterior sixth left rib margin is noted with some callus formation. No dislocation. Soft tissues: Unremarkable. Lymph nodes: Unremarkable. No enlarged lymph nodes. IMPRESSION: 1. The ascending aorta is within normal limits in caliber, with the mid ascending aorta measuring 3.9 x 3.8 cm. The aortic arch and descending aorta are normal in caliber. No dissection. No intimal wall abnormality noted on precontrast imaging. No acute periaortic abnormality identified. Atherosclerotic calcification incidentally noted. 2. A focal area of ground-glass opacity in the peripheral right upper lobe juxtapleural region measures 9 mm in AP diameter. Juxtapleural soft tissue nodule with some irregular angled margins measures 8 x 10 mm. Recommend short-term follow-up imaging to determine stability over time. No pleural effusion or pneumothorax. 3. A subacute healing left lateral fifth rib fracture is noted with callus formation. A subacute healing fracture involving the anterior sixth left rib margin is noted with some callus formation. EXAM: CT Angiography Abdomen and Pelvis Without and With Intravenous Contrast CLINICAL HISTORY: ABD PAIN HX OF AAA TECHNIQUE: Axial computed tomographic angiography images of the abdomen and pelvis without and with intravenous contrast. MIP reconstructed images were created and reviewed. COMPARISON: CT abdomen and pelvis without contrast dated 08/15/2022 FINDINGS: VASCULATURE: Aorta: Fusiform infrarenal abdominal aortic aneurysm beginning approximately 2.2 cm below the right renal vein ostium and extending over a length of approximately 9.9 cm. The aneurysm measures 8.2 x 8.5 cm in size. There is eccentric atheromatous material noted internally within the aneurysm. No dissection or penetrating ulcer. The aortic wall is somewhat thickened and hyperdense with regions of calcification, stable in appearance from the previous noncontrast examination. No extravasation or acute periaortic abnormality. Celiac trunk and mesenteric arteries: The celiac artery is patent with only mild ostial narrowing. The superior mesenteric artery is patent. The SARI is occluded proximally with distal reconstitution. Renal arteries: No acute findings. No occlusion or significant stenosis. Iliac arteries: The common iliac and external iliac arteries demonstrate atherosclerotic changes but are patent without dissection or aneurysm. The internal iliac arteries are patent. Lung bases: Findings regarding the lung bases, please see the CT report of the chest performed concurrently. No consolidation. ABDOMEN: Liver: Hepatic steatosis. Gallbladder and bile ducts: Unremarkable. No calcified stones. No ductal dilation. Pancreas: Unremarkable. No ductal dilation. No mass. Spleen: Unremarkable. No splenomegaly. Adrenals: Unremarkable. No mass. Kidneys and ureters: The unenhanced kidneys demonstrate mild hydroureteronephrosis with ureterectasis extending to the bladder. No obstructive ureteral stones. The kidneys demonstrate normal enhancement. A cortical cyst is noted in the posterior aspect of the mid to inferior pole of the right kidney. Stomach and bowel: No evidence for bowel obstruction. Scattered diverticulosis without definitive diverticulitis. PELVIS: Appendix: The appendix is not identified. No secondary findings to suggest acute appendicitis. Bladder: Unremarkable. No stones. No mass. Reproductive: Unremarkable as visualized. ABDOMEN and PELVIS: Intraperitoneal space: Unremarkable. No significant fluid collection. No free air. Bones/joints: Heterotopic calcifications anterior to the hips are stable from the previous examination. No acute fracture. No dislocation. Soft tissues: Unremarkable. Lymph nodes: Unremarkable. No enlarged lymph nodes. IMPRESSION: 1. Fusiform infrarenal abdominal aortic aneurysm beginning approximately 2.2 cm below the right renal vein ostium and extending over a length of approximately 9.9 cm. The aneurysm measures 8.2 x 8.5 cm in size. There is eccentric atheromatous material noted internally within the aneurysm. No dissection or penetrating ulcer. The aortic wall is somewhat thickened and hyperdense with regions of calcification, stable in appearance from the previous noncontrast examination. No extravasation or acute periaortic abnormality. 2. The kidneys demonstrate mild hydroureteronephrosis with ureterectasis extending to the bladder. No obstructive ureteral stones. No bladder wall thickening or bladder stones. Differential consideration includes mild urinary retention versus normal variation. No evidence for pyelonephritis. 3. No bowel obstruction. Scattered diverticulosis without evidence for diverticular hiatus. No free intraperitoneal fluid or pneumoperitoneum.
[2024-02-14 02:43] LABS: African American GFR (CKD) >90 (>60 ml/min/1.73 sqM); Anion Gap 5 mmol/L; Blood Urea Nitrogen 4 mg/dL (7-17); Calcium 8.6 mg/dL (8.4-10.2); Carbon Dioxide 22 mmol/L (22-30); Chloride 89 mmol/L (98-107); Glucose 86 mg/dL (74-99); Non-African American GFR(CKD) >90 (>60 ml/min/1.73 sqM); Potassium 3.3 mmol/L (3.5-5.1)
[2024-02-14 02:51] LABS: Sodium 116 mmol/L (137-145)
[2024-02-14] MEDS ORDERED: NALOXONE 0.4 MG/ML 1 ML VIAL IV PRN (03:05)
[2024-02-14] MEDS ORDERED: LORazepam 2 MG/ML INJ IV PRN ×3 (04:11)
--- NOTE | 2024-02-14 04:25 | P.CNPUL ---
History of Present Illness Consult date: 02/14/24 Requesting physician: Alvino Proctor Reason for consult: other (Hyponatremia, ICU evaluation) Chief complaint: Fall, generalized weakness History of present illness: Patient is a 88-year-old white female with past medical history significant for hypertension, hyperlipidemia, osteoporosis, and alcoholism. Patient currently reportedly drinks 2, 24 ounce beers per day. She lives with her [id number]. Reportedly treated outpatient approximately 1 month ago for urinary tract infection. Her primary care provider is a nurse practitioner Marleny Cheema. She has been very weak. Reports reduced appetite. Continues to drink beer. Patient did have a fall last night, she was reportedly in the bathroom and lost her balance. She fell against the toilet, and landed on her bottom. Denies hitting her head. Denies losing consciousness. She was found to be severely hyponatremic in the emergency room. I was called by the ER physician, for an ICU evaluation. Patient reportedly appeared to have dry mucous membranes and hypovolemic. While in the emergency room, patient was given a 1 L normal saline bolus, and IV normal saline was started at 75 mL/h. Subsequent sodium improved to 116. Nephrology has been consulted for management. Appropriate urine studies are pending. No altered mental status. No seizures. Patient is currently resting comfortably on 1 L/min nasal cannula. No acute distress. Chest x-ray on admission showed cardiomegaly with mild pulmonary vascular congestion. Patient reportedly does take Lasix outpatient. On my evaluation, she does have lower extremity swelling. Denies any nausea, vomiting, diarrhea, abdominal pain. Multiple CAT scans have been performed including a CT of the cervical spine without contrast which did not show any acute fractures or subluxation of the cervical spine. There was a CT of the pelvis which did not show any acute osseous traumatic injury involving the pelvis. A CT of the thoracic aorta showed a fusiform infrarenal abdominal aortic aneurysm measuring 8.2 x 8.5 cm in size. There was eccentric atheromatous material noted internally within the aneurysm. No dissection or penetrating ulcer. There was mild hydroureteronephrosis with ureterectasis extending to the bladder. No obstructive ureteral stones. CBC on arrival: WBC count 7.2, hemoglobin 16.3, hematocrit 40.1, platelets 355. Most recent follow-up BMP includes a sodium 116, potassium 3.3, chloride 89, serum bicarb 22, BUN 4, creatinine 0.39, glucose 86. LFTs mildly elevated. Urinalysis unremarkable. Urine toxicology screen also unremarkable. Serum alcohol level 87. Patient denies any history of delirium tremens or alcohol withdrawal seizures. No known history of malignancy. If the patient is not going to be given 3% sodium chloride, no need for ICU admission. Review of Systems REVIEW OF SYSTEMS: CONSTITUTIONAL: Denies any recent significant weight loss or weight gain. EYES: Denies change in vision. EARS, NOSE, MOUTH, THROAT: Denies headaches, denies sore throat. CARDIOVASCULAR: Denies chest pain, palpitations or syncopal episodes. Admits chronic bilateral lower extremity swelling. RESPIRATORY: Denies shortness of breath, cough, congestion or hemoptysis. GASTROINTESTINAL: Denies abdominal pain, nausea and vomiting, or diarrhea. Admits reduced appetite and oral intake. GENITOURINARY: Denies hematuria or dysuria/burning. Admits urinary frequency and nocturia. Normally takes her Lasix at 4 PM. MUSKULOSKELETAL: Denies pain, denies swelling. INTEGUMENTARY: Denies rash, denies eczema. NEUROLOGICAL: Denies recent memory loss, no recent seizure activity. PSYCHIATRIC: Denies anxiety, denies depression. HEMATOLOGIC/LYMPHATIC: Denies anemia, denies enlarged lymph node Past Medical History Past Medical History: Hypertension, Osteoarthritis (OA) History of Any Multi-Drug Resistant Organisms: None Reported Past Surgical History: Appendectomy Additional Past Surgical History / Comment(s): lithotripsy toe amputation Past Anesthesia/Blood Transfusion Reactions: No Reported Reaction Past Psychological History: Depression Smoking Status: Former smoker Past Alcohol Use History: Occasional Past Drug Use History: None Reported - Past Family History Sister(s) Family Medical History: Cancer Additional Family Medical History / Comment(s): esophagheal Mother Family Medical History: Cancer Additional Family Medical History / Comment(s): breast cancer Medications and Allergies Home Medications Medication Instructions Recorded Confirmed Type Alendronate Sodium [Fosamax] 70 mg PO WEEKLY 08/15/22 08/15/22 History Atorvastatin Calcium [Lipitor] 40 mg PO DAILY 08/15/22 08/15/22 History Omeprazole [PriLOSEC] 20 mg PO DAILY 08/15/22 08/15/22 History Potassium Chloride [Klor-Con M20] 20 meq PO DAILY 08/15/22 08/15/22 History amLODIPine [Norvasc] 10 mg PO DAILY 08/15/22 08/15/22 History traZODone HCL [Desyrel] 25 mg PO HS 08/15/22 08/15/22 History Furosemide [Lasix] 40 mg PO DAILY 30 Days #30 tablet 08/18/22 Rx oxyCODONE-APAP 7.5-325MG [Percocet 1 each PO Q4HR PRN #9 tab 08/18/22 Rx 7.5-325 mg] Allergies Allergy/AdvReac Type Severity Reaction Status Date / Time lisinopril Allergy Unknown Verified 02/13/24 21:18 Physical Exam Vitals: Vital Signs Temp Pulse Resp BP Pulse Ox 02/14/24 01:03 76 17 179/95 96 02/13/24 23:53 75 17 160/96 93 L 02/13/24 22:12 74 18 120/63 95 02/13/24 21:14 97.8 F 74 18 145/75 98 Intake and Output 02/13/24 02/13/24 02/14/24 14:59 22:59 06:59 Other: Weight 72.575 kg GENERAL EXAM: Alert, 88-year-old white female, comfortable in no apparent distress. HEAD: Normocephalic and atraumatic EYES: Normal reaction of pupils, equal size. NOSE: Clear with pink turbinates. THROAT: No erythema or exudates. Dry mucous membranes. NECK: No masses, no JVD. CHEST: No chest wall deformity. LUNGS: Equal air entry with no crackles, wheeze, rhonchi or dullness. On 1 L/min nasal cannula. No conversational dyspnea or accessory muscle use.. CVS: S1 and S2 normal with no audible murmur, regular rhythm. No extra heart sounds ABDOMEN: No hepatosplenomegaly, active bowel sounds, no guarding or rigidity. SPINE: No scoliosis or deformity SKIN: No rashes CENTRAL NERVOUS SYSTEM: No focal deficits, tone is normal in all 4 extremities. EXTREMITIES: There is mild bilateral lower extremity nonpitting edema. No clubbing, or cyanosis. Peripheral pulses are intact. Results - Laboratory Findings CBC and BMP: 02/13/24 21:55 02/14/24 02:22 PT/INR, D-dimer PT 10.9 sec (10.0-12.5) 02/13/24 21:56 INR 1.0 (<1.2) 02/13/24 21:56 Abnormal lab findings: Abnormal Labs 02/13/24 02/13/24 02/14/24 21:55 21:56 02:22 Hgb 16.3 H Hct 48.1 H Lymphocytes # 0.5 L Sodium 113 L* 116 L* Potassium 3.3 L Chloride 83 L 89 L Carbon Dioxide 17 L BUN 5 L 4 L Creatinine 0.44 L 0.39 L Total Bilirubin 1.6 H AST 69 H ALT 35 H - Diagnostic Findings Chest x-ray: image reviewed Assessment and Plan Assessment: Fall and generalized weakness Alcohol intoxication, serum alcohol level 87 Severe hyponatremia, appropriate urine studies are pending Acute hypoxemic respiratory failure, chest x-ray shows a component of cardiomegaly and pulmonary vascular congestion, possible congestive heart fail ure, unknown type. Fusiform infrarenal abdominal aortic aneurysm measuring 8.2 x 8.5 cm History of alcoholism Former tobacco dependence History of hypertension History of hyperlipidemia Plan: Patient's medications, labs, imaging reviewed Patient is asymptomatic for hyponatremia. Appropriate urine studies are pending. Currently receiving IV normal saline. Sodium is 116. Repeat sodium in 4 hours. Nephrology has been consulted for management of hyponatremia. No need for ICU admission unless patient will require 3% sodium infusion. Patient is currently intoxicated, serum alcohol level 87. Add CIWA protocol and vitamin B1 replacement. Continue supplemental oxygen. Obtain NT proBNP. Obtain transthoracic echocardiogram. Consult vascular service for evaluation of AAA Again, no need for ICU admission unless 3% sodium infusion is needed. I have personally seen and examined the patient, performed the documentation and the assessment and plan as written. Number of minutes spent on the visit:20 Time with Patient: Greater than 30
[2024-02-14] MEDS: THIAMINE 100 MG/ML 2 ML VIAL IM STA (04:26)
[2024-02-14 06:07] LABS: African American GFR (CKD) >90 (>60 ml/min/1.73 sqM); Anion Gap 8 mmol/L; Blood Urea Nitrogen 6 mg/dL (7-17); Calcium 8.6 mg/dL (8.4-10.2); Carbon Dioxide 22 mmol/L (22-30); Chloride 88 mmol/L (98-107); Glucose 87 mg/dL (74-99); Non-African American GFR(CKD) >90 (>60 ml/min/1.73 sqM)
[2024-02-14 06:08] LABS: Potassium 3.5 mmol/L (3.5-5.1); Sodium 118 mmol/L (137-145)
[2024-02-14] MEDS ORDERED: PANTOPRAZOLE 40 MG TABLET PO SCH (09:00)
--- NOTE | 2024-02-14 09:00 | P.HPIM ---
History of Present Illness H&P Date: 02/14/24 Chief Complaint: fall/hyponatremia This is an 88-year-old female who presented to the emergency department after a fall last night. Patient has a past medical history of hypertension, hyperlipidemia, osteoporosis and alcoholism. Patient reports last night she was using the bathroom and lost her balance and fell against the toilet. She denies any loss of consciousness or hitting her head. In the emergency room patient was found to be severely hyponatremic. Sodium on admission was 113, this morning it was 118. Patient does admit to routine alcohol use, reportedly dr inking 2 24oz beers a day. Alcohol level on admission was 87.She remains in IV fluids. She is alert and oriented x4. Reportedly drinking 224 ounce beers a day. Imaging on admission negative except for CT of the thoracic aorta which showed a fusiform infrarenal abdominal aortic aneurysm measuring 8.2 x 8.5 cm in size. Vascular surgery has been consulted and are planning for a possible EVAR on Tuesday. Patient will need medical and cardiology's clearance. Patient seen and evaluated laying in bed this morning. She reports some mild nausea. Review of Systems Constitutional: Denies chills, Denies fever Cardiovascular: Denies chest pain, Denies dyspnea on exertion Respiratory: Denies cough, Denies dyspnea Gastrointestinal: Reports nausea, Denies abdominal pain, Denies vomiting Musculoskeletal: Denies arm numbness/tingling, Denies leg numbness/tingling Neurological: Denies headaches, Denies weakness Past Medical History Past Medical History: Hypertension, Osteoarthritis (OA) History of Any Multi-Drug Resistant Organisms: None Reported Past Surgical History: Appendectomy Additional Past Surgical History / Comment(s): lithotripsy toe amputation Past Anesthesia/Blood Transfusion Reactions: No Reported Reaction Past Psychological History: Depression Smoking Status: Former smoker Past Alcohol Use History: Occasional Past Drug Use History: None Reported - Past Family History Sister(s) Family Medical History: Cancer Additional Family Medical History / Comment(s): esophagheal Mother Family Medical History: Cancer Additional Family Medical History / Comment(s): breast cancer Medications and Allergies Home Medications Medication Instructions Recorded Confirmed Type Alendronate Sodium [Fosamax] 70 mg PO WEEKLY 08/15/22 08/15/22 History Atorvastatin Calcium [Lipitor] 40 mg PO DAILY 08/15/22 08/15/22 History Omeprazole [PriLOSEC] 20 mg PO DAILY 08/15/22 08/15/22 History Potassium Chloride [Klor-Con M20] 20 meq PO DAILY 08/15/22 08/15/22 History amLODIPine [Norvasc] 10 mg PO DAILY 08/15/22 08/15/22 History traZODone HCL [Desyrel] 25 mg PO HS 08/15/22 08/15/22 History Furosemide [Lasix] 40 mg PO DAILY 30 Days #30 tablet 08/18/22 Rx oxyCODONE-APAP 7.5-325MG [Percocet 1 each PO Q4HR PRN #9 tab 08/18/22 Rx 7.5-325 mg] Allergies Allergy/AdvReac Type Severity Reaction Status Date / Time lisinopril Allergy Unknown Verified 02/13/24 21:18 Physical Exam Vitals: Vital Signs Temp Pulse Resp BP Pulse Ox 02/14/24 05:43 98.6 F 75 18 163/90 95 02/14/24 03:30 75 17 163/89 95 02/14/24 01:03 76 17 179/95 96 02/13/24 23:53 75 17 160/96 93 L 02/13/24 22:12 74 18 120/63 95 02/13/24 21:14 97.8 F 74 18 145/75 98 Intake and Output 02/13/24 02/14/24 02/14/24 22:59 06:59 14:59 Other: Weight 72.575 kg - Constitutional General appearance: cooperative, no acute distress - EENT Eyes: PERRLA - Neck Neck: no lymphadenopathy, normal ROM, no rigidity - Respiratory Respiratory: bilateral: CTA - Cardiovascular Rhythm: regular Heart sounds: normal: S1, S2 - Gastrointestinal General gastrointestinal: soft, no tenderness - Integumentary Integumentary: normal, normal turgor - Musculoskeletal Musculoskeletal: generalized weakness - Psychiatric Psychiatric: A&O x's 3 Results CBC & Chem 7: 02/13/24 21:55 02/14/24 05:17 Labs: Abnormal Lab Results - Last 24 Hours (Table) 02/13/24 02/13/24 02/14/24 Range/Units 21:55 21:56 02:22 Hgb 16.3 H (11.4-16.0) gm/dL Hct 48.1 H (34.0-46.0) % Lymphocytes # 0.5 L (1.0-4.8) k/uL Sodium 113 L* 116 L* (137-145) mmol/L Potassium 3.3 L (3.5-5.1) mmol/L Chloride 83 L 89 L (98-107) mmol/L Carbon Dioxide 17 L (22-30) mmol/L BUN 5 L 4 L (7-17) mg/dL Creatinine 0.44 L 0.39 L (0.52-1.04) mg/dL Total Bilirubin 1.6 H (0.2-1.3) mg/dL AST 69 H (14-36) U/L ALT 35 H (4-34) U/L 02/14/24 Range/Units 05:17 Hgb (11.4-16.0) gm/dL Hct (34.0-46.0) % Lymphocytes # (1.0-4.8) k/uL Sodium 118 L* (137-145) mmol/L Potassium (3.5-5.1) mmol/L Chloride 88 L (98-107) mmol/L Carbon Dioxide (22-30) mmol/L BUN 6 L (7-17) mg/dL Creatinine 0.41 L (0.52-1.04) mg/dL Total Bilirubin (0.2-1.3) mg/dL AST (14-36) U/L ALT (4-34) U/L Assessment and Plan (1) Hyponatremia Current Visit: Yes Status: Acute Code(s): E87.1 - HYPO-OSMOLALITY AND HYPONATREMIA SNOMED Code(s): 67696491 (2) Nausea Current Visit: Yes Status: Acute Code(s): R11.0 - NAUSEA SNOMED Code(s): 003222199 (3) Alcohol abuse Current Visit: Yes Status: Acute Code(s): F10.10 - ALCOHOL ABUSE, UNCOMPLICATED SNOMED Code(s): 04973345 (4) Hypertension Current Visit: Yes Status: Acute Code(s): I10 - ESSENTIAL (PRIMARY) HYPERTENSION SNOMED Code(s): 48750697 (5) Fall Current Visit: Yes Status: Acute Code(s): W19.XXXA - UNSPECIFIED FALL, INITIAL ENCOUNTER SNOMED Code(s): 6130678 (6) Infrarenal abdominal aortic aneurysm (AAA) without rupture Current Visit: Yes Status: Acute Code(s): I71.43 - INFRARENAL ABDOMINAL AORTIC ANEURYSM, WITHOUT RUPTURE SNOMED Code(s): 989388751 (7) Hyperlipemia Current Visit: Yes Status: Acute Code(s): E78.5 - HYPERLIPIDEMIA, UNSPECIFIED SNOMED Code(s): 66087770 Plan: Check CBC and CMP in the morning. Appreciate multiple consultants. Vascular surgery planning possible EVAR on Tuesday. Patient seen and evaluated by nurse practitioner, physician in agreement with plan
[2024-02-14] MEDS: ONDANSETRON 4 MG TAB PO PRN (09:40)
[2024-02-14] MEDS ORDERED: hydrALAZINE HCL 20 MG/ML 1 ML VIAL IVP PRN (10:16)
--- NOTE | 2024-02-14 10:20 | P.NPCON ---
History of Present Illness - Reason for Consult hyponatremia - History of Present Illness Reason for consultation: Hyponatremia History of present illness: Patient is 88-year-old female seen in renal consultation for hyponatremia. Patient sodium level on admission on February 13, 2024 at 9:45 PM was 113. Patient received 1 L of normal saline and is currently maintained on normal saline at 75 cc an hour. Sodium level this morning was up to 118. Renal function at baseline. Patient came to the hospital due to generalized weakness and fall. Patient states she fell in the bathroom. She denies hitting her head or losing consciousness. She does admit to drinking 2 large cans of beer daily, 1 cup of coffee and 3 to 4 glasses of water daily. Oral intake has been poor the last few days. She does admit to taking Motrin 800 mg almost on a daily basis. Denies use of diuretics. Denies history of malignancy. Denies chest pain or shortness of breath. Has been voiding. Denies gross hematuria or dysuria. Vital signs are stable. General: No acute distress. HEENT: Head exam is unremarkable. LUNGS: No audible rhonchi or wheezes. HEART: Rate and Rhythm are regular. ABDOMEN: Nontender. EXTREMITITES: No edema. Past Medical History Past Medical History: Hypertension, Osteoarthritis (OA) History of Any Multi-Drug Resistant Organisms: None Reported Past Surgical History: Appendectomy Additional Past Surgical History / Comment(s): lithotripsy toe amputation Past Anesthesia/Blood Transfusion Reactions: No Reported Reaction Past Psychological History: Depression Smoking Status: Former smoker Past Alcohol Use History: Occasional Past Drug Use History: None Reported - Past Family History Sister(s) Family Medical History: Cancer Additional Family Medical History / Comment(s): esophagheal Mother Family Medical History: Cancer Additional Family Medical History / Comment(s): breast cancer Medications and Allergies Home Medications Medication Instructions Recorded Confirmed Type Atorvastatin Calcium [Lipitor] 40 mg PO DAILY 08/15/22 02/14/24 History Omeprazole [PriLOSEC] 20 mg PO DAILY 08/15/22 02/14/24 History amLODIPine [Norvasc] 10 mg PO DAILY 08/15/22 02/14/24 History traZODone HCL [Desyrel] 25 mg PO HS 08/15/22 02/14/24 History Escitalopram [Lexapro] 20 mg PO DAILY 02/14/24 02/14/24 History Allergies Allergy/AdvReac Type Severity Reaction Status Date / Time lisinopril Allergy Unknown Verified 02/14/24 09:31 Physical Exam Vitals: Vital Signs Temp Pulse Resp BP Pulse Ox 02/14/24 05:43 98.6 F 75 18 163/90 95 02/14/24 03:30 75 17 163/89 95 02/14/24 01:03 76 17 179/95 96 02/13/24 23:53 75 17 160/96 93 L 02/13/24 22:12 74 18 120/63 95 02/13/24 21:14 97.8 F 74 18 145/75 98 Intake and Output 02/13/24 02/14/24 02/14/24 22:59 06:59 14:59 Other: Weight 72.575 kg Results - Lab Results Most recent lab results Calcium 8.6 mg/dL (8.4-10.2) 02/14/24 05:17 02/13/24 21:55 02/14/24 05:17 Assessment and Plan Plan: Assessment: 1. Hyponatremia. Component of hypovolemia and poor solute intake. Sodium 113 on admission last night and 118 this morning. TSH normal. 2. Status post fall. 3. Alcohol abuse. 4. Benign hypertension. 5. Hypokalemia from poor intake. Rule out magnesium deficiency. Plan: Hep-Lock IV fluids. Check serum and urine osmolality and urine sodium level. Repeat sodium level at 9 AM. Check magnesium level as well. Encouraged oral intake. Amlodipine resumed. Add as needed hydralazine. Thank you for the consultation. I will continue to follow the patient with you during her hospital stay.
[2024-02-14 11:33] LABS: Sodium 120 mmol/L (137-145)
[2024-02-14 11:36] LABS: Magnesium 1.6 mg/dL (1.6-2.3)
--- NOTE | 2024-02-14 13:14 | P.GSCN ---
History of Present Illness Consult date: 02/14/24 Reason for Consult: AAA Requesting physician: Mike Davis History of present illness: This is a pleasant 88-year-old female who was brought into the emergency department after sustaining a fall. Patient states that she felt off balance and fell. She denied any dizziness or tripping on anything. She has complaints of hip and leg pain. Past medical history includes hypertension, hyperlipidemia, osteoporosis and history of alcoholism. Patient reportedly drinks 224 ounce beers daily. She lives with her [id number]. On admission she was found to be very hyponatremic with a sodium level of 113. She had multiple imaging including chest x-ray pelvis x-ray head and cervical spine CT pelvis CT and a CT of the thoracic and aorta. On thoracic aorta CT there is reported 8 x 8 cm abdominal aortic aneurysm. Vascular surgery was consulted for aneurysm. Patient denies any previous history of known abdominal aortic aneurysm. She denies any abdominal pain, nausea or vomiting. Denies any chest pain or shortness of breath at this time. States that she has just had some increased weakness at home. States she has no history of cardiac disease and does not follow with a head sawyer automatic regularly. Patient serum alcohol level was 87 on admission, repeat sodium 118. Review of Systems A 14 point review systems was completed all pertinent positives and negatives as stated in the HPI. Past Medical History Past Medical History: Hypertension, Osteoarthritis (OA) History of Any Multi-Drug Resistant Organisms: None Reported Past Surgical History: Appendectomy Additional Past Surgical History / Comment(s): lithotripsy toe amputation Past Anesthesia/Blood Transfusion Reactions: No Reported Reaction Past Psychological History: Depression Smoking Status: Former smoker Past Alcohol Use History: Occasional Past Drug Use History: None Reported - Past Family History Sister(s) Family Medical History: Cancer Additional Family Medical History / Comment(s): esophagheal Mother Family Medical History: Cancer Additional Family Medical History / Comment(s): breast cancer Medications and Allergies Home Medications Medication Instructions Recorded Confirmed Type Atorvastatin Calcium [Lipitor] 40 mg PO DAILY 08/15/22 02/14/24 History Omeprazole [PriLOSEC] 20 mg PO DAILY 08/15/22 02/14/24 History amLODIPine [Norvasc] 10 mg PO DAILY 08/15/22 02/14/24 History traZODone HCL [Desyrel] 25 mg PO HS 08/15/22 02/14/24 History Escitalopram [Lexapro] 20 mg PO DAILY 02/14/24 02/14/24 History Allergies Allergy/AdvReac Type Severity Reaction Status Date / Time lisinopril Allergy Unknown Verified 02/14/24 09:31 Surgical - Exam Vital Signs Temp Pulse Resp BP Pulse Ox 97.8 F 74 18 145/75 98 02/13/24 21:14 02/13/24 21:14 02/13/24 21:14 02/13/24 21:14 02/13/24 21:14 General appearance: The patient is alert, oriented, appears in no acute distress. HET: Head is normocephalic and atraumatic. Pupils are equal and reactive. Neck: Supple. Heart: Regular. Lungs: Equal expansion, normal respiratory effort. Abdomen: Soft, nontender, nondistended. Extremities: Normal skin color and turgor. Palpable bilateral DP pulses and PT pulses. Neurological: No focal deficits. Alert and oriented. Results - Labs 02/13/24 21:55 02/14/24 10:19 Abnormal Lab Results - Last 24 Hours (Table) 02/13/24 02/13/24 02/14/24 Range/Units 21:55 21:56 02:22 Hgb 16.3 H (11.4-16.0) gm/dL Hct 48.1 H (34.0-46.0) % Lymphocytes # 0.5 L (1.0-4.8) k/uL Sodium 113 L* 116 L* (137-145) mmol/L Potassium 3.3 L (3.5-5.1) mmol/L Chloride 83 L 89 L (98-107) mmol/L Carbon Dioxide 17 L (22-30) mmol/L BUN 5 L 4 L (7-17) mg/dL Creatinine 0.44 L 0.39 L (0.52-1.04) mg/dL Total Bilirubin 1.6 H (0.2-1.3) mg/dL AST 69 H (14-36) U/L ALT 35 H (4-34) U/L 02/14/24 Range/Units 05:17 Hgb (11.4-16.0) gm/dL Hct (34.0-46.0) % Lymphocytes # (1.0-4.8) k/uL Sodium 118 L* (137-145) mmol/L Potassium (3.5-5.1) mmol/L Chloride 88 L (98-107) mmol/L Carbon Dioxide (22-30) mmol/L BUN 6 L (7-17) mg/dL Creatinine 0.41 L (0.52-1.04) mg/dL Total Bilirubin (0.2-1.3) mg/dL AST (14-36) U/L ALT (4-34) U/L Diabetes panel 02/13/24 02/14/24 02/14/24 Range/Units 21:56 02:22 05:17 Sodium 113 L* 116 L* 118 L* (137-145) mmol/L Potassium 4.1 3.3 L 3.5 (3.5-5.1) mmol/L Chloride 83 L 89 L 88 L (98-107) mmol/L Carbon Dioxide 17 L 22 22 (22-30) mmol/L BUN 5 L 4 L 6 L (7-17) mg/dL Creatinine 0.44 L 0.39 L 0.41 L (0.52-1.04) mg/dL Glucose 83 86 87 (74-99) mg/dL Calcium 9.0 8.6 8.6 (8.4-10.2) mg/dL AST 69 H (14-36) U/L ALT 35 H (4-34) U/L Alkaline Phosphatase 112 (38-126) U/L Total Protein 7.7 (6.3-8.2) g/dL Albumin 4.9 (3.5-5.0) g/dL Thyroid panel 02/14/24 Range/Units 03:52 TSH 0.855 (0.465-4.680) mIU/L Calcium panel 02/13/24 02/14/24 02/14/24 Range/Units 21:56 02:22 05:17 Calcium 9.0 8.6 8.6 (8.4-10.2) mg/dL Albumin 4.9 (3.5-5.0) g/dL Pituitary panel 02/13/24 02/14/24 02/14/24 Range/Units 21:56 02:22 03:52 Sodium 113 L* 116 L* (137-145) mmol/L Potassium 4.1 3.3 L (3.5-5.1) mmol/L Chloride 83 L 89 L (98-107) mmol/L Carbon Dioxide 17 L 22 (22-30) mmol/L BUN 5 L 4 L (7-17) mg/dL Creatinine 0.44 L 0.39 L (0.52-1.04) mg/dL Glucose 83 86 (74-99) mg/dL Calcium 9.0 8.6 (8.4-10.2) mg/dL TSH 0.855 (0.465-4.680) mIU/L 02/14/24 Range/Units 05:17 Sodium 118 L* (137-145) mmol/L Potassium 3.5 (3.5-5.1) mmol/L Chloride 88 L (98-107) mmol/L Carbon Dioxide 22 (22-30) mmol/L BUN 6 L (7-17) mg/dL Creatinine 0.41 L (0.52-1.04) mg/dL Glucose 87 (74-99) mg/dL Calcium 8.6 (8.4-10.2) mg/dL TSH (0.465-4.680) mIU/L Adrenal panel 02/13/24 02/14/24 02/14/24 Range/Units 21:56 02:22 05:17 Sodium 113 L* 116 L* 118 L* (137-145) mmol/L Potassium 4.1 3.3 L 3.5 (3.5-5.1) mmol/L Chloride 83 L 89 L 88 L (98-107) mmol/L Carbon Dioxide 17 L 22 22 (22-30) mmol/L BUN 5 L 4 L 6 L (7-17) mg/dL Creatinine 0.44 L 0.39 L 0.41 L (0.52-1.04) mg/dL Glucose 83 86 87 (74-99) mg/dL Calcium 9.0 8.6 8.6 (8.4-10.2) mg/dL Total Bilirubin 1.6 H (0.2-1.3) mg/dL AST 69 H (14-36) U/L ALT 35 H (4-34) U/L Alkaline Phosphatase 112 (38-126) U/L Total Protein 7.7 (6.3-8.2) g/dL Albumin 4.9 (3.5-5.0) g/dL - Imaging Comments: CT angiography thor/abd pel aorta 1. Ascending aorta is within normal limits in caliber with mid ascending aorta measuring 3.9 x 3.8 cm. Aortic arch and descending aorta are normal in caliber. No dissection. No and small wall abnormality noted on precontrast imaging. No acute periaortic abnormality identified. Arthrosclerotic calcification incidentally noted. Focal area of groundglass opacity in the peripheral right upper lobe juxtapleural region measures 9 mm in AP diameter. Juxtapleural soft tissue nodule with some irregular angled margins measures 8 x 10 mm recommend short-term follow-up imaging to determine stability over time. No pleural effusion or pneumothorax. A subacute healing left lateral fifth rib fracture noted with callus formation. A subacute healing fracture involving the anterior sixth left rib margin is noted with some callus formation. 1. Fusiform infrarenal AAA abdominal aortic aneurysm beginning approximately 2.2 cm below the right renal vein ostium and extending over a length of approximately 9.9 cm. The aneurysm measures 8.2 x 8.5 cm in size. There is eccentric thrombus material noted internally within the aneurysm. No dissection or penetrating ulcer. The aortic wall is somewhat thickened and hyperdense with regions of calcification. Stable in appearance from the previous noncontrast examination. No extra ovation or acute. Aortic abnormality. Kidneys demonstrate mild hydroureteronephrosis with ureteral ectasis extending to the bladder no obstruction ureteral stones. No bladder wall thickening or bladder stones. Differential consideration includes mild urinary retention versus normal variation. No evidence for pyelonephritis. No bowel obstruction. Scattered diverticulosis without evidence for diverticular hiatus. No free intraperitoneal fluid or pneumoperitoneum. Assessment and Plan Assessment: 1. Asymptomatic abdominal aortic aneurysm measuring 8 x 8 cm 2. Hyponatremia 3. Fall 4. Hypertension 5. Hyperlipidemia 6. Alcohol use Plan: 1. Consult cardiology for clearance for endovascular aorta repair 2. Patient will need medical clearance for endovascular aortic repair 3. Patient will need sodium replace, hyponatremia corrected prior to surgery 4. Continue with recommendations from nephrology 5. Patient tentatively scheduled for endovascular aorta repair 02/17/2024 pending medical and cardiac clearance 6. Patient may have heart healthy diet Thank you for this consultation, we will continue to follow. The impression and plan of care has been dictated as directed. Dr.Cuppari Nickerson performed a history and examination of this patient, discussed the same with the dictator. I agree with the dictator's note ,documented as a scribe. Any additional findings or plans will be noted.
[2024-02-14] MEDS: PANTOPRAZOLE 40 MG TABLET PO SCH (14:56)
[2024-02-14] MEDS: amLODIPine 10 MG TAB PO SCH (14:57)
[2024-02-14] MEDS: traMADol 50 MG TAB PO PRN (14:57)
[2024-02-14] MEDS: ATORVASTATIN 40 MG TAB PO SCH (14:57)
--- NOTE | 2024-02-14 15:47 | P.CRDCN ---
History of Present Illness Consult date: 02/14/24 Reason for Consult (text): Cardiac clearance for EVAR on 02/16 History of present illness: History of present illness: This is an 88-year-old female with past medical history of hypertension, hyperlipidemia, osteoporosis, alcohol abuse. We have been asked to evaluate the patient for cardiac clearance for EVAR scheduled for 02/16. Patient states that she came into the hospital because she lost her balance and fell and now complains of back pain. She denies any lightheadedness or dizziness prior to that and she denies any loss of consciousness. No chest pain. No palpitations. She denies any previous cardiac history and does not follow with a special services supervisor. She states she is normally wheelchair-bound and does not walk. Regarding alcohol intake, patient states she drinks tall boy beers and her last intake was on Tuesday. Patient is seen today in the emergency center waiting for bed on the cardiac stepdown unit EKG Q waves in the inferior leads Chest x-ray: Cardiomegaly and mild pulmonary vascular congestion. CT angiogram of the chest: Ascending aorta within normal limits. Groundglass opacity in the peripheral right upper lobe. Subacute healing left lateral fifth rib fracture. CT angiogram abdomen and pelvis reveals fusiform infrarenal abdominal aortic aneurysm 8.2 x 8.5 cm. Mild hydroureteronephrosis. No bowel obstruction. Laboratory studies: WBC 7.2, hemoglobin 16.3. Initial sodium 113 and now at 118, potassium 3.5, BUN 16 creatinine 0.41. Osmolality 252. TSH 0.588, proBNP 687. Total bilirubin 1.6, AST 69, alkaline phosphatase 35. Magnesium 1.6. Urine drug screen negative. Serum alcohol 87. Home cardiac medications: Amlodipine 10 mg daily, atorvastatin 40 mg daily. Review Of Systems: At the time of my exam: CONSTITUTIONAL: Denies fever or chills. HEENT: Denies blurred vision, vision changes, or eye pain. Denies hemoptysis CARDIOVASCULAR: Denies chest pain. Denies orthopnea. Denies PND. Denies palpitations RESPIRATORY: Denies shortness of breath. GASTROINTESTINAL: Denies abdominal pain. Denies nausea or vomiting. HEMATOLOGIC: Denies bleeding disorders. GENITOURINARY: Denies any blood in urine. SKIN: Denies pruitis. Denies rash. Physical examination: Gen: This is an 88-year-old female in no acute distress VS: reviewed, blood pressure 130/80, heart rate 78, pulse ox 97% on 2 L nasal c annula. HEENT: Head is atraumatic, normocephalic. Pupils equal, round. Sclerae is anicteric. NECK: Supple. No JVD. LUNGS: Clear to auscultation. No wheezes or rhonchi. No intercostal retractions. HEART: Regular rate and rhythm. No murmur. ABDOMEN: Soft No tenderness. EXTREMITIES: No pedal edema. No calf tenderness. NEUROLOGICAL: Patient is awake, alert and oriented x3. Assessment: Mechanical fall Alcohol intoxication Severe hyponatremia Fusiform infrarenal abdominal aortic aneurysm measuring 8.2 x 8.5 cm Hypertension Hyperlipidemia History of alcoholism Former tobacco use and dependence Plan: Continue patient's home cardiac medications Obtain troponin x 3 Obtain 2-D echocardiogram and Doppler study to assess cardiac structure and function Further recommendations to follow based upon clinical course Thank you kindly for this consultation. Nurse practitioner note has been reviewed, I agree with documented findings and plan of care. Patient was seen and examined. Past Medical History Past Medical History: Hypertension, Osteoarthritis (OA) History of Any Multi-Drug Resistant Organisms: None Reported Past Surgical History: Appendectomy Additional Past Surgical History / Comment(s): lithotripsy toe amputation Past Anesthesia/Blood Transfusion Reactions: No Reported Reaction Past Psychological History: Depression Smoking Status: Former smoker Past Alcohol Use History: Occasional Past Drug Use History: None Reported - Past Family History Sister(s) Family Medical History: Cancer Additional Family Medical History / Comment(s): esophagheal Mother Family Medical History: Cancer Additional Family Medical History / Comment(s): breast cancer Medications and Allergies Home Medications Medication Instructions Recorded Confirmed Type Atorvastatin Calcium [Lipitor] 40 mg PO DAILY 08/15/22 02/14/24 History Omeprazole [PriLOSEC] 20 mg PO DAILY 08/15/22 02/14/24 History amLODIPine [Norvasc] 10 mg PO DAILY 08/15/22 02/14/24 History traZODone HCL [Desyrel] 25 mg PO HS 08/15/22 02/14/24 History Escitalopram [Lexapro] 20 mg PO DAILY 02/14/24 02/14/24 History Allergies Allergy/AdvReac Type Severity Reaction Status Date / Time lisinopril Allergy Unknown Verified 02/14/24 09:31 Physical Exam Vitals: Vital Signs Temp Pulse Pulse Resp BP BP Pulse Ox 02/14/24 12:05 97.7 F 73 17 132/91 97 02/14/24 08:20 98.4 F 75 17 137/79 94 L 02/14/24 05:43 98.6 F 75 18 163/90 95 02/14/24 03:30 75 17 163/89 95 02/14/24 01:03 76 17 179/95 96 02/13/24 23:53 75 17 160/96 93 L 02/13/24 22:12 74 18 120/63 95 02/13/24 21:14 97.8 F 74 18 145/75 98 Intake and Output 02/13/24 02/14/24 02/14/24 22:59 06:59 14:59 Other: Weight 72.575 kg Results 02/13/24 21:55 02/14/24 10:19 Cardiac Enzymes 02/13/24 Range/Units 21:56 AST 69 H (14-36) U/L Coagulation 02/13/24 Range/Units 21:56 PT 10.9 (10.0-12.5) sec APTT 23.2 (22.0-30.0) sec CBC 02/13/24 Range/Units 21:55 WBC 7.2 (3.8-10.6) k/uL RBC 5.30 (3.80-5.40) m/uL Hgb 16.3 H (11.4-16.0) gm/dL Hct 48.1 H (34.0-46.0) % Plt Count 355 (150-450) k/uL Comprehensive Metabolic Panel 02/13/24 02/14/24 02/14/24 Range/Units 21:56 02:22 05:17 Sodium 113 L* 116 L* 118 L* (137-145) mmol/L Potassium 4.1 3.3 L 3.5 (3.5-5.1) mmol/L Chloride 83 L 89 L 88 L (98-107) mmol/L Carbon Dioxide 17 L 22 22 (22-30) mmol/L BUN 5 L 4 L 6 L (7-17) mg/dL Creatinine 0.44 L 0.39 L 0.41 L (0.52-1.04) mg/dL Glucose 83 86 87 (74-99) mg/dL Calcium 9.0 8.6 8.6 (8.4-10.2) mg/dL AST 69 H (14-36) U/L ALT 35 H (4-34) U/L Alkaline Phosphatase 112 (38-126) U/L Total Protein 7.7 (6.3-8.2) g/dL Albumin 4.9 (3.5-5.0) g/dL 02/14/24 02/14/24 Range/Units 09:56 10:19 Sodium 120 L 118 L* (137-145) mmol/L Potassium (3.5-5.1) mmol/L Chloride (98-107) mmol/L Carbon Dioxide (22-30) mmol/L BUN (7-17) mg/dL Creatinine (0.52-1.04) mg/dL Glucose (74-99) mg/dL Calcium (8.4-10.2) mg/dL AST (14-36) U/L ALT (4-34) U/L Alkaline Phosphatase (38-126) U/L Total Protein (6.3-8.2) g/dL Albumin (3.5-5.0) g/dL Current Medications Generic Name Dose Route Start Last Admin Trade Name Freq PRN Reason Stop Dose Admin Amlodipine Besylate 10 mg 02/14/24 09:00 Amlodipine 10 Mg Tab PO DAILY [facility] Atorvastatin Calcium 40 mg 02/14/24 09:00 Atorvastatin 40 Mg Tab PO DAILY ELIJAH Hydralazine HCl 10 mg 02/14/24 10:16 Hydralazine Hcl 20 Mg/Ml 1 Ml Vial IVP Q6HR PRN Blood Pressure - High Lorazepam 1 mg 02/14/24 04:11 Lorazepam 2 Mg/Ml Inj IV Q1HR PRN CIWA 10 to 15 Lorazepam 1 mg 02/14/24 04:11 Lorazepam 2 Mg/Ml Inj IV Q2HR PRN CIWA 8 or 9 Lorazepam 2 mg 02/14/24 04:11 Lorazepam 2 Mg/Ml Inj IV 02/16/24 04:11 Q10M PRN CIWA 16 or higher Naloxone HCl 0.2 mg 02/14/24 03:05 Naloxone 0.4 Mg/Ml 1 Ml Vial IV Q2M PRN Opioid Reversal Ondansetron HCl 4 mg 02/14/24 08:47 02/14/24 09:40 Ondansetron 4 Mg Tab PO 4 mg Q8HR PRN Administration Nausea And Vomiting Pantoprazole Sodium 40 mg 02/14/24 08:30 Pantoprazole 40 Mg Tablet PO AC-BRKFST ELIJAH Thiamine HCl 100 mg 02/15/24 09:00 Thiamine 100 Mg Tab PO DAILY [facility] Trazodone HCl 25 mg 02/14/24 21:00 Trazodone Hcl 50 Mg Tab PO [facility] Intake and Output 02/13/24 02/14/24 02/14/24 22:59 06:59 14:59 Other: Weight 72.575 kg 02/13/24 21:55 02/14/24 10:19
--- NOTE | 2024-02-14 17:29 | CA ---
Transthoracic Echo Report Name: Chris Sanford Age: 88 Gender: F : 1935 Exam Date: 02/14/2024 12:16 Exam Location: [place] [facility] Ht (in): 67 Wt (lb): 160 Ordering Physician: Mike Davis Attending/Referring Phys: Senior Clinical Research Scientist Bridgett Javed RDCS Procedure CPT: Indications: evaluate LV function Cardiac Hx: Technical Quality: Fair Contrast 1: Total Dose (mL): Contrast 2: Total Dose (mL): MEASUREMENTS (Male / Female) Normal Values 2D ECHO LV Diastolic Diameter PLAX 3.7 cm 4.2 - 5.9 / 3.9 - 5.3 cm LV Systolic Diameter PLAX 2.5 cm IVS Diastolic Thickness 1.3 cm 0.6 - 1.0 / 0.6 - 0.9 cm LVPW Diastolic Thickness 1.3 cm 0.6 - 1.0 / 0.6 - 0.9 cm LV Relative Wall Thickness 0.7 RV Internal Dim ED PLAX 3.1 cm LA Systolic Diameter LX 3.3 cm 3.0 - 4.0 / 2.7 - 3.8 cm LA Volume 37.2 cm??? 18 - 58 / 22 - 52 cm??? LA Volume Index 20.0 cm???/m??? 16 - 28 cm???/m??? M-MODE Aortic Root Diameter MM 3.2 cm AV Cusp Separation MM 2.4 cm DOPPLER AV Peak Velocity 146.9 cm/s AV Peak Gradient 8.6 mmHg MV Area PHT 2.1 cm??? Mitral E Point Velocity 104.7 cm/s Mitral A Point Velocity 151.6 cm/s Mitral E to A Ratio 0.7 MV Deceleration Time 356.5 ms FINDINGS Left Ventricle Left ventricular ejection fraction is estimated at 55-60 %. Small left ventricular cavity. Moderately increased septal wall thickness. Moderately increased posterior wall thickness. No obvious regional wall motion abnormalities. Right Ventricle Normal right ventricular size and function. Unable to estimate the right ventricular systolic pressure. Right Atrium Normal right atrial size. No right atrial thrombus or mass seen. Left Atrium Normal left atrial size. No left atrial thrombus or mass present. Mitral Valve Mitral valve thickened. Mild mitral annular calcification. No mitral stenosis, regurgitation or prolapse. Aortic Valve Trileaflet aortic valve. No aortic valve stenosis or regurgitation. Tricuspid Valve Structurally normal tricuspid valve. No tricuspid stenosis, regurgitation or prolapse. Pulmonic Valve Pulmonic valve not well visualized. Pericardium No pericardial or pleural effusion. Aorta Normal size aortic root and proximal ascending aorta. CONCLUSIONS Normal LV function Previewed by: Dr. Nii Gibbs MD (Electronically Signed) Final Date: 14 February 2024 17:29
[2024-02-14] MEDS: POTASSIUM CHLORIDE ER 20 MEQ TAB.ER PO STA (18:46)
[2024-02-14] MEDS: traZODone HCL 50 MG TAB PO SCH (20:39)
[2024-02-14] MEDS ORDERED: LORazepam 1 MG/0.5 ML VIAL IV PRN ×3 (23:21→23:22)
--- NOTE | 2024-02-15 08:18 | P.PN ---
Subjective Progress Note Date: 02/15/24 Principal diagnosis: Hyponatremia with infrarenal aneurysm. 88-year-old white female essentially admitted for altered mental status and fall. Hyponatremia is noted. History of alcohol abuse. No fever or chills she seems more lucid today. No nausea, vomiting or diarrhea. Appreciate multiple consultants input. Objective - Vital Signs Vital signs: Vital Signs Temp 98 F 02/15/24 00:00 Pulse 69 02/15/24 03:50 Resp 16 02/15/24 03:50 BP 146/74 02/15/24 03:50 Pulse Ox 95 02/15/24 07:41 FiO2 Intake & Output 02/14/24 02/15/24 02/15/24 18:59 06:59 18:59 Output Total 900 100 Balance -900 -100 Weight 72.575 kg Output: Urine 900 100 Other: Voiding Method External Catheter External Catheter - Constitutional General appearance: Present: obese - EENT Eyes: Absent: abnormal pupil - Neck Neck: Absent: lymphadenopathy - Respiratory Respiratory: bilateral: diminished - Cardiovascular Rhythm: regular Heart sounds: normal: S1, S2 Abnormal Heart Sounds: Absent: S3 Gallop - Gastrointestinal General gastrointestinal: Present: soft. Absent: tenderness - Psychiatric Psychiatric: Present: A&O x's 3 - Labs CBC & Chem 7: 02/13/24 21:55 02/14/24 20:11 Labs: Abnormal Lab Results - Last 24 Hours (Table) 02/14/24 02/14/24 02/14/24 Range/Units 04:35 05:17 09:56 Sodium 120 L (137-145) mmol/L Osmolality 252 L (275-295) mOsm/kg Ur Random Sodium 21 L (40-220) mmol/L 02/14/24 02/14/24 02/14/24 Range/Units 10:19 15:09 20:11 Sodium 118 L* 118 L* 118 L* (137-145) mmol/L Osmolality (275-295) mOsm/kg Ur Random Sodium (40-220) mmol/L Assessment and Plan (1) Alcohol abuse Current Visit: Yes Status: Acute Code(s): F10.10 - ALCOHOL ABUSE, UNCOMPLICATED SNOMED Code(s): 12109861 (2) Fall Current Visit: Yes Status: Acute Code(s): W19.XXXA - UNSPECIFIED FALL, INI TIAL ENCOUNTER SNOMED Code(s): 7755794 (3) Hypertension Current Visit: Yes Status: Acute Code(s): I10 - ESSENTIAL (PRIMARY) HYPERTENSION SNOMED Code(s): 10754927 (4) Hyponatremia Current Visit: Yes Status: Acute Code(s): E87.1 - HYPO-OSMOLALITY AND HYP ONATREMIA SNOMED Code(s): 40630669 (5) Infrarenal abdominal aortic aneurysm (AAA) without rupture Current Visit: Yes Status: Acute Code(s): I71.43 - INFRARENAL ABDOMINAL AORTIC ANEURYSM, WITHOUT RUPTURE SNOMED Code(s): 820256155 Plan: Continue current regimen of treatment. Appreciate multiple consultants input. Check CMP in a.m. Tentative aortic repair scheduled for Tuesday. Still with significant hyponatremia.
[2024-02-15] MEDS: THIAMINE 100 MG TAB PO SCH (08:51)
[2024-02-15 10:13] LABS: HCT 46.7 % (34.0-46.0); HGB 15.2 gm/dL (11.4-16.0); MCH 30.6 pg (25.0-35.0); MCHC 32.6 g/dL (31.0-37.0); MCV 93.8 fL (80.0-100.0); Mean Platelet Volume 8.9; Platelet Count 289 k/uL (150-450); RBC 4.97 m/uL (3.80-5.40); RDW 12.7 % (11.5-15.5); WBC 6.8 k/uL (3.8-10.6)
[2024-02-15 10:36] LABS: ALT 30 U/L (4-34); AST 61 U/L (14-36); African American GFR (CKD) >90 (>60 ml/min/1.73 sqM); Albumin 3.8 g/dL (3.5-5.0); Alkaline Phosphatase 88 U/L (38-126); Anion Gap 4 mmol/L; Blood Urea Nitrogen 6 mg/dL (7-17); Calcium 8.7 mg/dL (8.4-10.2); Carbon Dioxide 30 mmol/L (22-30); Chloride 92 mmol/L (98-107); Glucose 96 mg/dL (74-99); Non-African American GFR(CKD) 89 (>60 ml/min/1.73 sqM); Potassium 3.2 mmol/L (3.5-5.1); Sodium 126 mmol/L (137-145); Total Bilirubin 1.7 mg/dL (0.2-1.3); Total Protein 6.2 g/dL (6.3-8.2)
--- NOTE | 2024-02-15 11:01 | P.PN ---
Subjective Patient is seen in follow-up for hyponatremia. Sodium level 126 this morning. Currently on normal saline at 50 cc an hour. Oral intake better. Vital signs are stable. General: No acute distress. HEENT: Head exam is unremarkable. LUNGS: No audible rhonchi or wheezes. HEART: Rate and Rhythm are regular. ABDOMEN: Nontender. EXTREMITITES: No edema. Chronic changes noted. Objective - Vital Signs Vital signs: Vital Signs Temp 97.7 F 02/15/24 08:50 Pulse 60 02/15/24 08:50 Resp 18 02/15/24 08:50 BP 121/68 02/15/24 08:50 Pulse Ox 97 02/15/24 08:50 FiO2 Intake & Output 02/14/24 02/15/24 02/15/24 18:59 06:59 18:59 Intake Total 110 Output Total 900 100 Balance -900 -100 110 Weight 72.575 kg Intake: Oral 110 Output: Urine 900 100 Other: Voiding Method External Catheter External Catheter External Catheter - Labs CBC & Chem 7: 02/15/24 09:13 02/15/24 09:13 Labs: Abnormal Lab Results - Last 24 Hours (Table) 02/14/24 02/14/24 02/14/24 Range/Units 04:35 05:17 09:56 Hct (34.0-46.0) % Sodium 120 L (137-145) mmol/L Potassium (3.5-5.1) mmol/L Chloride (98-107) mmol/L BUN (7-17) mg/dL Creatinine (0.52-1.04) mg/dL Osmolality 252 L (275-295) mOsm/kg Total Bilirubin (0.2-1.3) mg/dL AST (14-36) U/L Total Protein (6.3-8.2) g/dL Ur Random Sodium 21 L (40-220) mmol/L 02/14/24 02/14/24 02/14/24 Range/Units 10:19 15:09 20:11 Hct (34.0-46.0) % Sodium 118 L* 118 L* 118 L* (137-145) mmol/L Potassium (3.5-5.1) mmol/L Chloride (98-107) mmol/L BUN (7-17) mg/dL Creatinine (0.52-1.04) mg/dL Osmolality (275-295) mOsm/kg Total Bilirubin (0.2-1.3) mg/dL AST (14-36) U/L Total Protein (6.3-8.2) g/dL Ur Random Sodium (40-220) mmol/L 02/15/24 02/15/24 Range/Units 09:13 09:13 Hct 46.7 H (34.0-46.0) % Sodium 126 L (137-145) mmol/L Potassium 3.2 L (3.5-5.1) mmol/L Chloride 92 L (98-107) mmol/L BUN 6 L (7-17) mg/dL Creatinine 0.49 L (0.52-1.04) mg/dL Osmolality (275-295) mOsm/kg Total Bilirubin 1.7 H (0.2-1.3) mg/dL AST 61 H (14-36) U/L Total Protein 6.2 L (6.3-8.2) g/dL Ur Random Sodium (40-220) mmol/L Assessment and Plan Plan: Assessment: 1. Hyponatremia. Component of hypovolemia and poor solute intake. Sodium 126 this morning. TSH normal. Urine sodium 21. 2. Status post fall. 3. Alcohol abuse. 4. Benign hypertension. Controlled. 5. Hypokalemia from poor intake. Plan: Change IV fluids to half-normal saline at 75 cc an hour. Repeat sodium level at 2 PM. Encouraged oral intake. Replace potassium.
[2024-02-15] MEDS: POTASSIUM CHLORIDE ER 20 MEQ TAB.ER PO STA ×2 (11:07→18:15)
[2024-02-15] MEDS: SODIUM CHLORIDE 0.45% 1,000 ML IV SCH (11:07)
--- NOTE | 2024-02-15 11:55 | P.PN ---
Subjective Progress Note Date: 02/15/24 Principal diagnosis: Weakness. Patient is a 88-year-old white female with past medical history significant for hypertension, hyperlipidemia, osteoporosis, and alcoholism. Patient currently reportedly drinks 2, 24 ounce beers per day. She lives with her [id number]. Reportedly treated outpatient approximately 1 month ago for urinary tract infection. Her primary care provider is a nurse practitioner Marleny Cheema. She has been very weak. Reports reduced appetite. Continues to drink beer. Patient did have a fall last night, she was reportedly in the bathroom and lost her balance. She fell against the toilet, and landed on her bottom. Denies hitting her head. Denies losing consciousness. She was found to be severely hyponatremic in the emergency room. I was called by the ER physician, for an ICU evaluation. Patient reportedly appeared to have dry mucous membranes and hypovolemic. While in the emergency room, patient was given a 1 L normal saline bolus, and IV normal saline was started at 75 mL/h. Subsequent sodium improved to 116. Nephrology has been consulted for management. Appropriate urine studies are pending. No altered mental status. No seizures. Patient is currently resting comfortably on 1 L/min nasal cannula. No acute distress. Ch est x-ray on admission showed cardiomegaly with mild pulmonary vascular congestion. Patient reportedly does take Lasix outpatient. On my evaluation, she does have lower extremity swelling. Denies any nausea, vomiting, diarrhea, abdominal pain. Multiple CAT scans have been performed including a CT of the cervical spine without contrast which did not show any acute fractures or subluxation of the cervical spine. There was a CT of the pelvis which did not show any acute osseous traumatic injury involving the pelvis. A CT of the thoracic aorta showed a fusiform infrarenal abdominal aortic aneurysm measuring 8.2 x 8.5 cm in size. There was eccentric atheromatous material noted internally within the aneurysm. No dissection or penetrating ulcer. There was mild hydroureteronephrosis with ureterectasis extending to the bladder. No obstructive ureteral stones. CBC on arrival: WBC count 7.2, hemoglobin 16.3, hematocrit 40.1, platelets 355. Most recent follow-up BMP includes a sodium 11 6, potassium 3.3, chloride 89, serum bicarb 22, BUN 4, creatinine 0.39, glucose 86. LFTs mildly elevated. Urinalysis unremarkable. Urine toxicology screen also unremarkable. Serum alcohol level 87. Patient denies any history of delirium tremens or alcohol withdrawal seizures. No known history of malignancy. If the patient is not going to be given 3% sodium chloride, no need for ICU admission. Progress note dated February 15, 2024. 88-year-old female admitted with a diagnosis of weakness, and hyponatremia. Currently, she is seen today in room 351. She is getting saline at 50 cc an hour. She is getting oxygen by nasal cannula 2 L. She appears to be relatively stable. Current laboratory data includes a white count 6.8, hemoglobin 15.2, hematocrit 46.7, and a normal platelet count. Sodium is up to 126, from 118. Potassium 3.2, chlorides 92, CO2 30, BUN 6, creatinine 0.49. Bilirubin is 1.7. AST is 61. Albumin is 3.8. Troponins were 0.012, 0.013, and less than 0.012. Objective - Vital Signs Vital signs: Vital Signs Temp 97.7 F 02/15/24 08:50 Pulse 60 02/15/24 08:50 Resp 18 02/15/24 08:50 BP 121/68 02/15/24 08:50 Pulse Ox 97 02/15/24 08:50 FiO2 Intake & Output 02/14/24 02/15/24 02/15/24 18:59 06:59 18:59 Intake Total 110 Output Total 900 100 Balance -900 -100 110 Weight 72.575 kg Intake: Oral 110 Output: Urine 900 100 Other: Voiding Method External Catheter External Catheter External Catheter - Exam No acute distress, oriented 3. The patient is currently on 2 L by nasal cannula. HEENT examination is grossly unremarkable. Mucous membranes are moist. No oral lesions. Neck supple. Full range of motion. No adenopathy thyromegaly or neck vein distention. Cardiovascular examination reveals regular rhythm rate. S1-S2 normal. No S3 or S4. No discernible murmur noted. Heart rate 60 bpm. Heart sounds are distant. Lungs reveal clear breath sounds. Breath sounds are equal bilaterally. No adventitious lung sounds including wheezes rhonchi or crackles. Abdomen soft bowel sounds are heard. No masses or tenderness. Extremities are intact. No cyanosis or clubbing. Mild edema noted. Skin is without rash or lesion. Neurologic examination is brief but nonfocal. - Labs CBC & Chem 7: 02/15/24 09:13 02/15/24 09:13 Labs: Abnormal Lab Results - Last 24 Hours (Table) 02/14/24 02/14/24 02/14/24 Range/Units 04:35 04:35 05:17 Hct (34.0-46.0) % Sodium (137-145) mmol/L Potassium (3.5-5.1) mmol/L Chloride (98-107) mmol/L BUN (7-17) mg/dL Creatinine (0.52-1.04) mg/dL Osmolality 252 L (275-295) mOsm/kg Total Bilirubin (0.2-1.3) mg/dL AST (14-36) U/L Total Protein (6.3-8.2) g/dL Urine Osmolality 232 L (400-1100) mOsm/kg Ur Random Sodium 21 L (40-220) mmol/L 02/14/24 02/14/24 02/14/24 Range/Units 10:19 15:09 20:11 Hct (34.0-46.0) % Sodium 118 L* 118 L* 118 L* (137-145) mmol/L Potassium (3.5-5.1) mmol/L Chloride (98-107) mmol/L BUN (7-17) mg/dL Creatinine (0.52-1.04) mg/dL Osmolality (275-295) mOsm/kg Total Bilirubin (0.2-1.3) mg/dL AST (14-36) U/L Total Protein (6.3-8.2) g/dL Urine Osmolality (400-1100) mOsm/kg Ur Random Sodium (40-220) mmol/L 02/15/24 02/15/24 Range/Units 09:13 09:13 Hct 46.7 H (34.0-46.0) % Sodium 126 L (137-145) mmol/L Potassium 3.2 L (3.5-5.1) mmol/L Chloride 92 L (98-107) mmol/L BUN 6 L (7-17) mg/dL Creatinine 0.49 L (0.52-1.04) mg/dL Osmolality (275-295) mOsm/kg Total Bilirubin 1.7 H (0.2-1.3) mg/dL AST 61 H (14-36) U/L Total Protein 6.2 L (6.3-8.2) g/dL Urine Osmolality (400-1100) mOsm/kg Ur Random Sodium (40-220) mmol/L Assessment and Plan Assessment: Fall, with generalized weakness. Alcohol intoxication, serum alcohol level 87. Severe hyponatremia, improved. Acute hypoxemic respiratory failure, secondary to mild pulmonary vascular congestion, and possible CHF. Fusiform infrarenal abdominal aortic aneurysm, measuring 8.2 x 8.5 cm. History of chronic alcohol abuse. Former tobacco dependence. History of hypertension. History of hyperlipidemia. Plan: Plan dated February 15, 2024. The patient is receiving saline at 50 cc an hour. The patient is on oxygen at 2 L. Her sodium today was 126. She was admitted with a sodium of 113. Labs, x- rays, and all medications are reviewed. We will continue to follow the patient, make recommendations along the way. The patient is a DO NOT RESUSCITATE patient. No additional recommendations are made at this time. Prognosis is guarded. Time with Patient: Less than 30
--- NOTE | 2024-02-15 14:00 | P.PN ---
Subjective Progress Note Date: 02/15/24 Principal diagnosis: AAA Patient was seen and examined today as a follow-up. She denies any chest pain, shortness of breath, abdominal pain, nausea, vomiting, fevers or chills. States that she is having lower back pain. Odium improving 2.26 today. Nephrology is following closely. Echocardiogram completed yesterday EF 55 to 60%. Objective - Vital Signs Vital signs: Vital Signs Temp 97.7 F 02/15/24 08:50 Pulse 60 02/15/24 08:50 Resp 18 02/15/24 08:50 BP 121/68 02/15/24 08:50 Pulse Ox 97 02/15/24 08:50 FiO2 Intake & Output 02/14/24 02/15/24 02/15/24 18:59 06:59 18:59 Intake Total 110 Output Total 900 100 Balance -900 -100 110 Weight 72.575 kg Intake: Oral 110 Output: Urine 900 100 Other: Voiding Method External Catheter External Catheter External Catheter - Exam General appearance: The patient is alert, oriented, appears in no acute distress. HET: Head is normocephalic and atraumatic. Neck: Supple. Heart: Regular. Lungs: Equal expansion, normal respiratory effort. Abdomen: Soft, nontender, nondistended. Extremities: Normal skin color and turgor. Palpable DP pulses. Neurological: No focal deficits. Alert and oriented. - Labs CBC & Chem 7: 02/15/24 09:13 02/15/24 09:13 Labs: Abnormal Lab Results - Last 24 Hours (Table) 02/14/24 02/14/24 02/14/24 Range/Units 04:35 05:17 09:56 Hct (34.0-46.0) % Sodium 120 L (137-145) mmol/L Osmolality 252 L (275-295) mOsm/kg Ur Random Sodium 21 L (40-220) mmol/L 02/14/24 02/14/24 02/14/24 Range/Units 10:19 15:09 20:11 Hct (34.0-46.0) % Sodium 118 L* 118 L* 118 L* (137-145) mmol/L Osmolality (275-295) mOsm/kg Ur Random Sodium (40-220) mmol/L 02/15/24 Range/Units 09:13 Hct 46.7 H (34.0-46.0) % Sodium (137-145) mmol/L Osmolality (275-295) mOsm/kg Ur Random Sodium (40-220) mmol/L Assessment and Plan Assessment: 1. Asymptomatic abdominal aortic aneurysm measuring 8 x 8 cm 2. Hyponatremia 3. Fall 4. Hypertension 5. Hyperlipidemia 6. Alcohol use Plan: 1. Consult cardiology for clearance for endovascular aorta repair 2. Patient will need medical clearance for endovascular aortic repair 3. Continue to follow electrolytes, continue with recommendations from nephrology for hyponatremia 4. Patient tentatively scheduled for endovascular aorta repair 02/17/2024 pending medical and cardiac clearance 6. Patient may have heart healthy diet Thank you for this consultation, we will continue to follow. The impression and plan of care has been dictated as directed. Dr. Berrios I performed a history and examination of this patient, discussed the same with the dictator. I agree with the dictator's note ,documented as a scribe. Any additional findings or plans will be noted.
--- NOTE | 2024-02-15 14:48 | P.PN ---
Subjective Progress Note Date: 02/15/24 Reason for Consult (text): Cardiac clearance for EVAR on 02/16 History of present illness: This is an 88-year-old female with past medical history of hypertension, hyperlipidemia, osteoporosis, alcohol abuse. We have been asked to evaluate the patient for cardiac clearance for EVAR scheduled for 02/16. Patient states that she came into the hospital because she lost her balance and fell and now complains of back pain. She denies any lightheadedness or dizziness prior to that and she denies any loss of consciousness. No chest pain. No palpitations. She denies any previous cardiac history and does not follow with a film processing supervisor. She states she is normally wheelchair-bound and does not walk. Regarding alcohol intake, patient states she drinks tall boy beers and her last intake was on Tuesday. Patient is seen today in the emergency center waiting for bed on the cardiac stepdown unit EKG Q waves in the inferior leads Chest x-ray: Cardiomegaly and mild pulmonary vascular congestion. CT angiogram of the chest: Ascending aorta within normal limits. Groundglass opacity in the peripheral right upper lobe. Subacute healing left lateral fifth rib fracture. CT angiogram abdomen and pelvis reveals fusiform infrarenal abdominal aortic aneurysm 8.2 x 8.5 cm. Mild hydroureteronephrosis. No bowel obstruction. Laboratory studies: WBC 7.2, hemoglobin 16.3. Initial sodium 113 and now at 118, potassium 3.5, BUN 16 creatinine 0.41. Osmolality 252. TSH 0.588, proBNP 687. Total bilirubin 1.6, AST 69, alkaline phosphatase 35. Magnesium 1.6. Urine drug screen negative. Serum alcohol 87. Home cardiac medications: Amlodipine 10 mg daily, atorvastatin 40 mg daily. 02/14 Patient denies having any chest pain no shortness of breath. Echocardiogram reveals EF of 55 to 60%. Results reviewed with the patient. She continues to have some wheezing. Patient was a smoker and quit 15 years ago. Blood pressure 146/74, heart rate 69, pulse ox 95% on 2 L nasal cannula. Troponins were negative x 3. Last documented sodium was 118. There is still plan for EVAR on Tuesday. Physical examination: Gen: This is an 88-year-old female in no acute distress VS: reviewed, blood pressure 130/80, heart rate 78, pulse ox 97% on 2 L nasal cannula. HEENT: Head is atraumatic, normocephalic. Pupils equal, round. Sclerae is anicteric. NECK: Supple. No JVD. LUNGS: Clear to auscultation. No wheezes or rhonchi. No intercostal retractions. HEART: Regular rate and rhythm. No murmur. ABDOMEN: Soft No tenderness. EXTREMITIES: No pedal edema. No calf tenderness. NEUROLOGICAL: Patient is awake, alert and oriented x3. Assessment: Mechanical fall Alcohol intoxication Severe hyponatremia Fusiform infrarenal abdominal aortic aneurysm measuring 8.2 x 8.5 cm Hypertension Hyperlipidemia History of alcoholism Former tobacco use and dependence Plan: Continue patient's home cardiac medications Patient is cleared for surgery scheduled for Tuesday. Further recommendations to follow based upon clinical course Nurse practitioner note has been reviewed, I agree with documented findings and plan of care. Patient was seen and examined. Objective - Vital Signs Vital signs: Vital Signs Temp 98 F 02/15/24 00:00 Pulse 69 02/15/24 03:50 Resp 16 02/15/24 03:50 BP 146/74 02/15/24 03:50 Pulse Ox 95 02/15/24 07:41 FiO2 Intake & Output 02/14/24 02/15/24 02/15/24 18:59 06:59 18:59 Output Total 900 100 Balance -900 -100 Weight 72.575 kg Output: Urine 900 100 Other: Voiding Method External Catheter External Catheter - Labs CBC & Chem 7: 02/15/24 09:13 02/15/24 09:13 Labs: Abnormal Lab Results - Last 24 Hours (Table) 02/14/24 02/14/24 02/14/24 Range/Units 04:35 05:17 09:56 Sodium 120 L (137-145) mmol/L Osmolality 252 L (275-295) mOsm/kg Ur Random Sodium 21 L (40-220) mmol/L 02/14/24 02/14/24 02/14/24 Range/Units 10:19 15:09 20:11 Sodium 118 L* 118 L* 118 L* (137-145) mmol/L Osmolality (275-295) mOsm/kg Ur Random Sodium (40-220) mmol/L
[2024-02-15 15:37] LABS: African American GFR (CKD) >90 (>60 ml/min/1.73 sqM); Anion Gap 0 mmol/L; Blood Urea Nitrogen 8 mg/dL (7-17); Calcium 8.5 mg/dL (8.4-10.2); Carbon Dioxide 29 mmol/L (22-30); Chloride 95 mmol/L (98-107); Glucose 114 mg/dL (74-99); Non-African American GFR(CKD) 87 (>60 ml/min/1.73 sqM); Potassium 3.2 mmol/L (3.5-5.1); Sodium 124 mmol/L (137-145)
[2024-02-16 08:03] LABS: HCT 42.6 % (34.0-46.0); HGB 13.8 gm/dL (11.4-16.0); MCH 30.6 pg (25.0-35.0); MCHC 32.4 g/dL (31.0-37.0); MCV 94.3 fL (80.0-100.0); Mean Platelet Volume 8.9; Platelet Count 250 k/uL (150-450); RBC 4.52 m/uL (3.80-5.40); RDW 12.8 % (11.5-15.5); WBC 5.8 k/uL (3.8-10.6)
--- NOTE | 2024-02-16 08:45 | P.PN ---
Subjective Progress Note Date: 02/16/24 This is an 88-year-old female who originally presented to the emergency department after complaints of a fall. In the emergency room patient was found to be severely hyponatremic. She does have a history of alcoholism, reportedly drinking 2 24 beer ounce beers a day. Imaging on admission was negative except for CT of the thoracic aorta which showed a fusiform infrarenal abdominal aortic aneurysm measuring 8.2 x 8.5 cm in size. Vascular surgery is planning for an EVAR on Tuesday. Patient has been cleared by cardiology. She has been receiving IV fluids and sodium was up to 124 yesterday, level for today not up at time of dictation. Patient is seen this morning sitting in chair at bedside eating breakfast. She reports she is feeling well just some mild nausea. . Objective - Vital Signs Vital signs: Vital Signs Temp 97.8 F 02/16/24 08:00 Pulse 68 02/16/24 08:00 Resp 20 02/16/24 08:00 BP 123/64 02/16/24 08:00 Pulse Ox 95 02/16/24 08:00 FiO2 Intake & Output 02/15/24 02/16/24 02/16/24 18:59 06:59 18:59 Intake Total 220 120 Output Total 450 500 Balance -230 -380 Intake: Oral 220 120 Output: Urine 450 500 Other: Voiding Method External Catheter External Catheter - Constitutional General appearance: Present: cooperative, no acute distress - EENT Eyes: Present: PERRLA - Neck Neck: Present: normal ROM. Absent: lymphadenopathy, rigidity - Respiratory Respiratory: bilateral: wheezing - Cardiovascular Rhythm: regular Heart sounds: normal: S1, S2 - Gastrointestinal General gastrointestinal: Present: soft. Absent: tenderness - Integumentary Integumentary: Present: normal, normal turgor - Musculoskeletal Musculoskeletal: Present: generalized weakness - Psychiatric Psychiatric: Present: A&O x's 3 - Labs CBC & Chem 7: 02/16/24 07:16 02/15/24 14:37 Labs: Abnormal Lab Results - Last 24 Hours (Table) 02/14/24 02/15/24 02/15/24 Range/Units 04:35 09:13 09:13 Hct 46.7 H (34.0-46.0) % Sodium 126 L (137-145) mmol/L Potassium 3.2 L (3.5-5.1) mmol/L Chloride 92 L (98-107) mmol/L BUN 6 L (7-17) mg/dL Creatinine 0.49 L (0.52-1.04) mg/dL Glucose (74-99) mg/dL Total Bilirubin 1.7 H (0.2-1.3) mg/dL AST 61 H (14-36) U/L Total Protein 6.2 L (6.3-8.2) g/dL Urine Osmolality 232 L (400-1100) mOsm/kg 02/14/ Range/Units 14:37 Hct (34.0-46.0) % Sodium 124 L (137-145) mmol/L Potassium 3.2 L (3.5-5.1) mmol/L Chloride 95 L (98-107) mmol/L BUN (7-17) mg/dL Creatinine (0.52-1.04) mg/dL Glucose 114 H (74-99) mg/dL Total Bilirubin (0.2-1.3) mg/dL AST (14-36) U/L Total Protein (6.3-8.2) g/dL Urine Osmolality (400-1100) mOsm/kg Assessment and Plan (1) Hyponatremia Current Visit: Yes Status: Acute Code(s): E87.1 - HYPO-OSMOLALITY AND HYPON ATREMIA SNOMED Code(s): 79960110 (2) Nausea Current Visit: Yes Status: Acute Code(s): R11.0 - NAUSEA SNOMED Code(s): 300897297 (3) Alcohol abuse Current Visit: Yes Status: Acute Code(s): F10.10 - ALCOHOL ABUSE, UNCOMPLICATED SNOMED Code(s): 64120961 (4) Hypertension Current Visit: Yes Status: Acute Code(s): I10 - ESSENTIAL (PRIMARY) HYPERTENSION SNOMED Code(s): 06644819 (5) Fall Current Visit: Yes Status: Acute Code(s): W19.XXXA - UNSPECIFIED FALL, INITIAL ENCOUNTER SNOMED Code(s): 5491981 (6) Infrarenal abdominal aortic aneurysm (AAA) without rupture Current Visit: Yes Status: Acute Code(s): I71.43 - INFRARENAL ABDOMINAL AORTIC ANEURYSM, WITHOUT RUPTURE SNOMED Code(s): 158295787 (7) Hyperlipemia Current Visit: Yes Status: Acute Code(s): E78.5 - HYPERLIPIDEMIA, UNSPECIFIED SNOMED Code(s): 03042481 Plan: Check CBC and CMP in the morning. Appreciate multiple consultants. Patient is medically cleared for surgery. Patient seen and evaluated by nurse practitioner, physician in agreement with plan
[2024-02-16 09:00] LABS: ALT 29 U/L (4-34); AST 51 U/L (14-36); African American GFR (CKD) >90 (>60 ml/min/1.73 sqM); Albumin 3.2 g/dL (3.5-5.0); Alkaline Phosphatase 90 U/L (38-126); Anion Gap 1 mmol/L; Blood Urea Nitrogen 7 mg/dL (7-17); Calcium 8.5 mg/dL (8.4-10.2); Carbon Dioxide 27 mmol/L (22-30); Chloride 100 mmol/L (98-107); Glucose 89 mg/dL (74-99); Magnesium 1.7 mg/dL (1.6-2.3); Non-African American GFR(CKD) >90 (>60 ml/min/1.73 sqM); Potassium 3.9 mmol/L (3.5-5.1); Sodium 128 mmol/L (137-145); Total Bilirubin 1.2 mg/dL (0.2-1.3); Total Protein 5.4 g/dL (6.3-8.2)
--- NOTE | 2024-02-16 10:59 | P.PN ---
Subjective Patient is seen in follow-up for hyponatremia. Sodium level 128 this morning. Currently off IV fluids. Oral intake is good. Vital signs are stable. General: No acute distress. HEENT: Head exam is unremarkable. LUNGS: No audible rhonchi or wheezes. HEART: Rate and Rhythm are regular. ABDOMEN: Nontender. EXTREMITITES: No edema. Chronic changes noted. Objective - Vital Signs Vital signs: Vital Signs Temp 97.8 F 02/16/24 08:00 Pulse 68 02/16/24 08:00 Resp 20 02/16/24 08:00 BP 123/64 02/16/24 08:00 Pulse Ox 95 02/16/24 08:00 FiO2 Intake & Output 02/15/24 02/16/24 02/16/24 18:59 06:59 18:59 Intake Total 220 120 Output Total 450 500 Balance -230 -380 Intake: Oral 220 120 Output: Urine 450 500 Other: Voiding Method External Catheter External Catheter External Catheter - Labs CBC & Chem 7: 02/16/24 07:16 02/16/24 07:16 Labs: Abnormal Lab Results - Last 24 Hours (Table) 02/14/24 02/15/24 02/16/24 Range/Units 04:35 14:37 07:16 Sodium 124 L 128 L (137-145) mmol/L Potassium 3.2 L (3.5-5.1) mmol/L Chloride 95 L (98-107) mmol/L Creatinine 0.45 L (0.52-1.04) mg/dL Glucose 114 H (74-99) mg/dL AST 51 H (14-36) U/L Total Protein 5.4 L (6.3-8.2) g/dL Albumin 3.2 L (3.5-5.0) g/dL Urine Osmolality 232 L (400-1100) mOsm/kg Assessment and Plan Plan: Assessment: 1. Hyponatremia. Component of hypovolemia and poor solute intake. Sodium 128 this morning. TSH normal. Urine sodium 21. Urine osmolality 232. 2. Status post fall. 3. Alcohol abuse. 4. Benign hypertension. Controlled. 5. Hypokalemia from poor intake. Replaced. Better. Plan: Encouraged oral intake. Maintain fluid restriction. Add oral magnesium oxide.
--- NOTE | 2024-02-16 11:35 | P.PN ---
Subjective Progress Note Date: 02/16/24 Principal diagnosis: Weakness. Patient is a 88-year-old white female with past medical history significant for hypertension, hyperlipidemia, osteoporosis, and alcoholism. Patient currently reportedly drinks 2, 24 ounce beers per day. She lives with her [id number]. Reportedly treated outpatient approximately 1 month ago for urinary tract infection. Her primary care provider is a nurse practitioner Marleny Cheema. She has been very weak. Reports reduced appetite. Continues to drink beer. Patient did have a fall last night, she was reportedly in the bathroom and lost her balance. She fell against the toilet, and landed on her bottom. Denies hitting her head. Denies losing consciousness. She was found to be severely hyponatremic in the emergency room. I was called by the ER physician, for an ICU evaluation. Patient reportedly appeared to have dry mucous membranes and hypovolemic. While in the emergency room, patient was given a 1 L normal saline bolus, and IV normal saline was started at 75 mL/h. Subsequent sodium improved to 116. Nephrology has been consulted for management. Appropriate urine studies are pending. No altered mental status. No seizures. Patient is currently resting comfortably on 1 L/min nasal cannula. No acute distress. Ch est x-ray on admission showed cardiomegaly with mild pulmonary vascular congestion. Patient reportedly does take Lasix outpatient. On my evaluation, she does have lower extremity swelling. Denies any nausea, vomiting, diarrhea, abdominal pain. Multiple CAT scans have been performed including a CT of the cervical spine without contrast which did not show any acute fractures or subluxation of the cervical spine. There was a CT of the pelvis which did not show any acute osseous traumatic injury involving the pelvis. A CT of the thoracic aorta showed a fusiform infrarenal abdominal aortic aneurysm measuring 8.2 x 8.5 cm in size. There was eccentric atheromatous material noted internally within the aneurysm. No dissection or penetrating ulcer. There was mild hydroureteronephrosis with ureterectasis extending to the bladder. No obstructive ureteral stones. CBC on arrival: WBC count 7.2, hemoglobin 16.3, hematocrit 40.1, platelets 355. Most recent follow-up BMP includes a sodium 11 6, potassium 3.3, chloride 89, serum bicarb 22, BUN 4, creatinine 0.39, glucose 86. LFTs mildly elevated. Urinalysis unremarkable. Urine toxicology screen also unremarkable. Serum alcohol level 87. Patient denies any history of delirium tremens or alcohol withdrawal seizures. No known history of malignancy. If the patient is not going to be given 3% sodium chloride, no need for ICU admission. Progress note dated February 15, 2024. 88-year-old female admitted with a diagnosis of weakness, and hyponatremia. Currently, she is seen today in room 351. She is getting saline at 50 cc an hour. She is getting oxygen by nasal cannula 2 L. She appears to be relatively stable. Current laboratory data includes a white count 6.8, hemoglobin 15.2, hematocrit 46.7, and a normal platelet count. Sodium is up to 126, from 118. Potassium 3.2, chlorides 92, CO2 30, BUN 6, creatinine 0.49. Bilirubin is 1.7. AST is 61. Albumin is 3.8. Troponins were 0.012, 0.013, and less than 0.012. Progress note dated February 16, 2024. 88-year-old female admitted with a diagnosis of weakness, and hyponatremia. Currently, she is seen today in room 351. She is on 2 L of oxygen. Today sodium is up to 128. She appears to be relatively stable. I asked her why she drinks so much beer, and she states "I like it". She appears relatively comfortable. Additional laboratory data includes a white count 5.8, hemoglobin 13.8, hematocrit 42.6, platelet count 250,000. Sodium 128, potassium 3.9, chlorides 100, CO2 27, BUN 7, creatinine 0.45. The patient's AST is 51. Albumin is 3.2. Objective - Vital Signs Vital signs: Vital Signs Temp 97.8 F 02/16/24 08:00 Pulse 68 02/16/24 08:00 Resp 20 02/16/24 08:00 BP 123/64 02/16/24 08:00 Pulse Ox 95 02/16/24 08:00 FiO2 Intake & Output 02/15/24 02/16/24 02/16/24 18:59 06:59 18:59 Intake Total 220 120 Output Total 450 500 Balance -230 -380 Intake: Oral 220 120 Output: Urine 450 500 Other: Voiding Method External Catheter External Catheter External Catheter - Exam No acute distress, oriented 3. The patient is currently on 2 L by nasal cannula. HEENT examination is grossly unremarkable. Mucous membranes are moist. No oral lesions. Neck supple. Full range of motion. No adenopathy thyromegaly or neck vein distention. Cardiovascular examination reveals regular rhythm rate. S1-S2 normal. No S3 or S4. No discernible murmur noted. Heart rate 68 bpm. Heart sounds are distant. Lungs reveal clear breath sounds. Breath sounds are equal bilaterally. No adv entitious lung sounds including wheezes rhonchi or crackles. 2 L saturation is 95%. Abdomen soft bowel sounds are heard. No masses or tenderness. Extremities are intact. No cyanosis or clubbing. Mild edema noted. Skin is without rash or lesion. Neurologic examination is brief but nonfocal. - Labs CBC & Chem 7: 02/16/24 07:16 02/16/24 07:16 Labs: Abnormal Lab Results - Last 24 Hours (Table) 02/15/24 02/16/24 Range/Units 14:37 07:16 Sodium 124 L 128 L (137-145) mmol/L Potassium 3.2 L (3.5-5.1) mmol/L Chloride 95 L (98-107) mmol/L Creatinine 0.45 L (0.52-1.04) mg/dL Glucose 114 H (74-99) mg/dL AST 51 H (14-36) U/L Total Protein 5.4 L (6.3-8.2) g/dL Albumin 3.2 L (3.5-5.0) g/dL Assessment and Plan Assessment: Fall, with generalized weakness. Alcohol intoxication, serum alcohol level 87. Severe hyponatremia, improved, secondary to beer potomania. Acute hypoxemic respiratory failure, secondary to mild pulmonary vascular congestion, and possible CHF. Fusiform infrarenal abdominal aortic aneurysm, measuring 8.2 x 8.5 cm. History of chronic alcohol abuse. Former tobacco dependence. History of hypertension. History of hyperlipidemia. Plan: Plan dated February 15, 2024. The patient is receiving saline at 50 cc an hour. The patient is on oxygen at 2 L. Her sodium today was 126. She was admitted with a sodium of 113. Labs, x- rays, and all medications are reviewed. We will continue to follow the patient, make recommendations along the way. The patient is a DO NOT RESUSCITATE patient. No additional recommendations are made at this time. Prognosis is guarded. Plan dated February 16, 2024. The patient is doing much better. She is much more awake and alert. She still very weak. Her sodium today is up to 128. Labs, x-rays, and medications are reviewed. The patient continues on 2 L of oxygen. The patient is not receiving any IV fluids. We will continue to follow the patient. Prognosis is guarded. Her respiratory status is stable. Time with Patient: Less than 30
[2024-02-16] MEDS: MAGNESIUM OXIDE 400 MG TAB PO SCH (12:37)
--- NOTE | 2024-02-16 14:01 | P.PN ---
Subjective Progress Note Date: 02/16/24 Reason for Consult (text): Cardiac clearance for EVAR on 02/16 History of present illness: This is an 88-year-old female with past medical history of hypertension, hyperlipidemia, osteoporosis, alcohol abuse. We have been asked to evaluate the patient for cardiac clearance for EVAR scheduled for 02/16. Patient states that she came into the hospital because she lost her balance and fell and now complains of back pain. She denies any lightheadedness or dizziness prior to that and she denies any loss of consciousness. No chest pain. No palpitations. She denies any previous cardiac history and does not follow with a senior qa engineer. She states she is normally wheelchair-bound and does not walk. Regarding alcohol intake, patient states she drinks tall boy beers and her last intake was on Tuesday. Patient is seen today in the emergency center waiting for bed on the cardiac stepdown unit EKG Q waves in the inferior leads Chest x-ray: Cardiomegaly and mild pulmonary vascular congestion. CT angiogram of the chest: Ascending aorta within normal limits. Groundglass opacity in the peripheral right upper lobe. Subacute healing left lateral fifth rib fracture. CT angiogram abdomen and pelvis reveals fusiform infrarenal abdominal aortic aneurysm 8.2 x 8.5 cm. Mild hydroureteronephrosis. No bowel obstruction. Laboratory studies: WBC 7.2, hemoglobin 16.3. Initial sodium 113 and now at 118, potassium 3.5, BUN 16 creatinine 0.41. Osmolality 252. TSH 0.588, proBNP 687. Total bilirubin 1.6, AST 69, alkaline phosphatase 35. Magnesium 1.6. Urine drug screen negative. Serum alcohol 87. Home cardiac medications: Amlodipine 10 mg daily, atorvastatin 40 mg daily. 02/14 Patient denies having any chest pain no shortness of breath. Echocardiogram reveals EF of 55 to 60%. Results reviewed with the patient. She continues to have some wheezing. Patient was a smoker and quit 15 years ago. Blood pressure 146/74, heart rate 69, pulse ox 95% on 2 L nasal cannula. Troponins were negative x 3. Last documented sodium was 118. There is still plan for EVAR on Tuesday. 02/15 Blood pressure 111/65, heart rate 88, pulse ox 94% on 2 L nasal cannula. Repeat blood work reveals sodium 128, potassium 3.9, creatinine 0.45. Hemoglobin 13.8. Physical examination: Gen: This is an 88-year-old female in no acute distress VS: reviewed HEENT: Head is atraumatic, normocephalic. Pupils equal, round. Sclerae is anicteric. LUNGS: Clear to auscultation. No wheezes or rhonchi. No intercostal retractions. HEART: Regular rate and rhythm. No murmur. EXTREMITIES: No pedal edema. No calf tenderness. NEUROLOGICAL: Patient is awake, alert and oriented x3. Assessment: Mechanical fall Alcohol intoxication Severe hyponatremia Fusiform infrarenal abdominal aortic aneurysm measuring 8.2 x 8.5 cm Hypertension Hyperlipidemia History of alcoholism Former tobacco use and dependence Plan: Continue patient's home cardiac medications Patient is cleared for surgery scheduled for Tuesday. Further recommendations to follow based upon clinical course Nurse practitioner note has been reviewed, I agree with documented findings and plan of care. Patient was seen and examined. Objective - Vital Signs Vital signs: Vital Signs Temp 97.8 F 02/16/24 08:00 Pulse 68 02/16/24 08:00 Resp 20 02/16/24 08:00 BP 123/64 02/16/24 08:00 Pulse Ox 95 02/16/24 08:00 FiO2 Intake & Output 02/15/24 02/16/24 02/16/24 18:59 06:59 18:59 Intake Total 220 120 Output Total 450 500 Balance -230 -380 Intake: Oral 220 120 Output: Urine 450 500 Other: Voiding Method External Catheter External Catheter - Labs CBC & Chem 7: 02/16/24 07:16 02/16/24 07:16 Labs: Abnormal Lab Results - Last 24 Hours (Table) 02/14/24 02/15/24 02/15/24 Range/Units 04:35 09:13 09:13 Hct 46.7 H (34.0-46.0) % Sodium 126 L (137-145) mmol/L Potassium 3.2 L (3.5-5.1) mmol/L Chloride 92 L (98-107) mmol/L BUN 6 L (7-17) mg/dL Creatinine 0.49 L (0.52-1.04) mg/dL Glucose (74-99) mg/dL Total Bilirubin 1.7 H (0.2-1.3) mg/dL AST 61 H (14-36) U/L Total Protein 6.2 L (6.3-8.2) g/dL Urine Osmolality 232 L (400-1100) mOsm/kg 02/15/24 Range/Units 14:37 Hct (34.0-46.0) % Sodium 124 L (137-145) mmol/L Potassium 3.2 L (3.5-5.1) mmol/L Chloride 95 L (98-107) mmol/L BUN (7-17) mg/dL Creatinine (0.52-1.04) mg/dL Glucose 114 H (74-99) mg/dL Total Bilirubin (0.2-1.3) mg/dL AST (14-36) U/L Total Protein (6.3-8.2) g/dL Urine Osmolality (400-1100) mOsm/kg
--- NOTE | 2024-02-16 14:31 | P.PN ---
Subjective Progress Note Date: 02/16/24 Principal diagnosis: AAA Patient is seen and examined today as a follow-up. She denies any shortness of breath, chest pain or abdominal pain. States she still has back pain. And that she is just tired. WBC 5.8 hemoglobin 13.8 platelet count 250,000 sodium 128 potassium 3.9 BUN 7 creatinine 0.5 Objective - Vital Signs Vital signs: Vital Signs Temp 97.8 F 02/16/24 08:00 Pulse 68 02/16/24 08:00 Resp 20 02/16/24 08:00 BP 123/64 02/16/24 08:00 Pulse Ox 95 02/16/24 08:00 FiO2 Intake & Output 02/15/24 02/16/24 02/16/24 18:59 06:59 18:59 Intake Total 220 120 Output Total 450 500 Balance -230 -380 Intake: Oral 220 120 Output: Urine 450 500 Other: Voiding Method External Catheter External Catheter - Exam General appearance: The patient is alert, oriented, appears in no acute distress. HET: Head is normocephalic and atraumatic. Neck: Supple. Heart: Regular. Lungs: Equal expansion, normal respiratory effort. Abdomen: Soft, nontender, nondistended. Extremities: Normal skin color and turgor. Palpable DP pulses. Neurological: No focal deficits. Alert and oriented. - Labs CBC & Chem 7: 02/16/24 07:16 02/16/24 07:16 Labs: Abnormal Lab Results - Last 24 Hours (Table) 02/14/24 02/15/24 02/15/24 Range/Units 04:35 09:13 09:13 Hct 46.7 H (34.0-46.0) % Sodium 126 L (137-145) mmol/L Potassium 3.2 L (3.5-5.1) mmol/L Chloride 92 L (98-107) mmol/L BUN 6 L (7-17) mg/dL Creatinine 0.49 L (0.52-1.04) mg/dL Glucose (74-99) mg/dL Total Bilirubin 1.7 H (0.2-1.3) mg/dL AST 61 H (14-36) U/L Total Protein 6.2 L (6.3-8.2) g/dL Albumin (3.5-5.0) g/dL Urine Osmolality 232 L (400-1100) mOsm/kg 02/15/24 02/16/24 Range/Units 14:37 07:16 Hct (34.0-46.0) % Sodium 124 L 128 L (137-145) mmol/L Potassium 3.2 L (3.5-5.1) mmol/L Chloride 95 L (98-107) mmol/L BUN (7-17) mg/dL Creatinine 0.45 L (0.52-1.04) mg/dL Glucose 114 H (74-99) mg/dL Total Bilirubin (0.2-1.3) mg/dL AST 51 H (14-36) U/L Total Protein 5.4 L (6.3-8.2) g/dL Albumin 3.2 L (3.5-5.0) g/dL Urine Osmolality (400-1100) mOsm/kg Assessment and Plan Assessment: 1. Asymptomatic abdominal aortic aneurysm measuring 8 x 8 cm 2. Hyponatremia 3. Fall 4. Hypertension 5. Hyperlipidemia 6. Daily Alcohol use 7. Low back pain Plan: 1. Cardiology consulted for clearance for Endo vascular abdominal aortic repair, patient is cleared by cardiology for EVAR 2. Patient medically cleared for EVAR 3. Continue to follow electrolytes, continue with recommendations from nephrology for hyponatremia 4. Patient is scheduled for endovascular abdominal aorta repair tomorrow 6. Repeat BMP tomorrow 7. Repeat type and screen ordered 8. N.p.o. after midnight Thank you for this consultation, we will continue to follow. The impression and plan of care has been dictated as directed. Dr. Amato I performed a history and examination of this patient, discussed the same with the dictator. I agree with the dictator's note ,documented as a scribe. Any additional findings or plans will be noted.
[2024-02-17] MEDS: LACTATED RINGERS 1,000 ML IV SCH (00:05)
[2024-02-17] MEDS ORDERED: MIDAZOLAM 2 MG/2 ML VIAL IV PRN (07:00)
[2024-02-17] MEDS ORDERED: fentaNYL (PF) 50 MCG/ML 2 ML AMP IV PRN (07:00)
[2024-02-17] MEDS ORDERED: HYDROmorphone 0.5 MG/0.5 ML SYRINGE IVP PRN (07:00)
--- NOTE | 2024-02-17 08:25 | P.PN ---
Subjective Principal diagnosis: Hyponatremia with infrarenal aneurysm. 88-year-old white female essentially admitted for altered mental status and fall. Hyponatremia is noted this is improving. History of alcohol abuse. No fever or chills she seems more lucid today. No nausea, vomiting or diarrhea. Appreciate multiple consultants input. Await aneurysmal repair today Objective - Vital Signs Vital signs: Vital Signs Temp 98.0 F 02/16/24 20:00 Pulse 75 02/17/24 08:10 Resp 17 02/17/24 08:10 BP 135/75 02/17/24 08:10 Pulse Ox 95 02/17/24 08:10 FiO2 Intake & Output 02/16/24 02/17/24 02/17/24 18:59 06:59 18:59 Intake Total 1000 120 Output Total 450 300 Balance 550 -180 Intake: Oral 1000 120 Output: Urine 450 300 Other: Voiding Method External Catheter External Catheter # Voids 0 1 # Bowel Movements 1 - Constitutional General appearance: Present: cooperative, no acute distress - Neck Neck: Absent: lymphadenopathy - Respiratory Respiratory: bilateral: diminished - Cardiovascular Rhythm: regular Heart sounds: normal: S1, S2 Abnormal Heart Sounds: Absent: S3 Gallop - Gastrointestinal General gastrointestinal: Present: soft. Absent: tenderness - Psychiatric Psychiatric: Present: A&O x's 3 - Labs CBC & Chem 7: 02/16/24 07:16 02/16/24 07:16 Labs: Abnormal Lab Results - Last 24 Hours (Table) 02/16/24 02/16/24 Range/Units 06:28 07:16 Sodium 128 L (137-145) mmol/L Creatinine 0.45 L (0.52-1.04) mg/dL AST 51 H (14-36) U/L Total Protein 5.4 L (6.3-8.2) g/dL Albumin 3.2 L (3.5-5.0) g/dL Urine Osmolality 178 L (400-1100) mOsm/kg Assessment and Plan (1) Alcohol abuse Current Visit: Yes Status: Acute Code(s): F10.10 - ALCOHOL ABUSE, UNCOMPLICATED SNOMED Code(s): 99525718 (2) Fall Current Visit: Yes Status: Acute Code(s): W19.XXXA - UNSPECIFIED FALL, INITIAL ENCOUNTER SNOMED Code(s): 0380255 (3) Hypertension Current Visit: Yes Status: Acute Code(s): I10 - ESSENTIAL (PRIMARY) HYPERTENSION SNOMED Code(s): 92486348 (4) Hyponatremia Current Visit: Yes Status: Acute Code(s): E87.1 - HYPO-OSMOLALITY AND HYPONATREMIA SNOMED Code(s): 36847460 (5) Infrarenal abdominal aortic aneurysm (AAA) without rupture Current Visit: Yes Status: Acute Code(s): I71.43 - INFRARENAL ABDOMINAL AORTIC ANEURYSM, WITHOUT RUPTURE SNOMED Code(s): 694041527 Plan: Continue current regimen of treatment. Appreciate multiple consultants input. Check CMP in a.m. Tentative aortic repair scheduled for today. Hyponatremia is improved. Discussed alcohol abstinence. Time with Patient: Greater than 30
[2024-02-17 09:25] LABS: HCT 42.1 % (34.0-46.0); HGB 13.6 gm/dL (11.4-16.0); MCH 31.3 pg (25.0-35.0); MCHC 32.2 g/dL (31.0-37.0); MCV 97.3 fL (80.0-100.0); Mean Platelet Volume 8.6; Platelet Count 220 k/uL (150-450); RBC 4.33 m/uL (3.80-5.40); RDW 12.8 % (11.5-15.5); WBC 7.9 k/uL (3.8-10.6)
[2024-02-17 09:40] LABS: Albumin 2.9 g/dL (3.5-5.0); Chloride 99 mmol/L (98-107); Glucose 99 mg/dL (74-99); Potassium 3.8 mmol/L (3.5-5.1); Total Protein 5.1 g/dL (6.3-8.2)
[2024-02-17 09:41] LABS: ALT 30 U/L (4-34); AST 47 U/L (14-36); African American GFR (CKD) >90 (>60 ml/min/1.73 sqM); Alkaline Phosphatase 83 U/L (38-126); Anion Gap 0 mmol/L; Blood Urea Nitrogen 8 mg/dL (7-17); Calcium 8.5 mg/dL (8.4-10.2); Carbon Dioxide 28 mmol/L (22-30); Magnesium 1.6 mg/dL (1.6-2.3); Non-African American GFR(CKD) >90 (>60 ml/min/1.73 sqM); Sodium 127 mmol/L (137-145); Total Bilirubin 1.2 mg/dL (0.2-1.3)
--- NOTE | 2024-02-17 10:43 | P.PN ---
Subjective Patient is seen in follow-up for hyponatremia. Sodium level 127 this morning. Currently off IV fluids. Oral intake is good. Vital signs are stable. General: No acute distress. HEENT: Head exam is unremarkable. LUNGS: No audible rhonchi or wheezes. HEART: Rate and Rhythm are regular. ABDOMEN: Nontender. EXTREMITITES: No edema. Chronic changes noted. Objective - Vital Signs Vital signs: Vital Signs Temp 98.0 F 02/16/24 20:00 Pulse 75 02/17/24 09:34 Resp 17 02/17/24 09:34 BP 135/75 02/17/24 08:10 Pulse Ox 95 02/17/24 08:10 FiO2 Intake & Output 02/16/24 02/17/24 02/17/24 18:59 06:59 18:59 Intake Total 1000 120 Output Total 450 300 Balance 550 -180 Intake: Oral 1000 120 Output: Urine 450 300 Other: Voiding Method External Catheter External Catheter External Catheter # Voids 0 1 # Bowel Movements 1 1 - Labs CBC & Chem 7: 02/17/24 09:08 02/17/24 09:08 Labs: Abnormal Lab Results - Last 24 Hours (Table) 02/16/24 02/17/24 Range/Units 06:28 09:08 Sodium 127 L (137-145) mmol/L Creatinine 0.43 L (0.52-1.04) mg/dL AST 47 H (14-36) U/L Total Protein 5.1 L (6.3-8.2) g/dL Albumin 2.9 L (3.5-5.0) g/dL Urine Osmolality 178 L (400-1100) mOsm/kg Assessment and Plan Plan: Assessment: 1. Hyponatremia. Component of hypovolemia and poor solute intake. Sodium 127 this morning. TSH normal. Urine sodium 21. Urine osmolality 232 and 178 when repeated. 2. Status post fall. 3. Alcohol abuse. 4. Benign hypertension. Controlled. 5. Hypokalemia from poor intake. Replaced. Better. 6. Abdominal aortic aneurysm. Vascular surgery following. Surgical repair pending. Plan: Encouraged oral intake. Maintain fluid restriction. Maintain oral magnesium oxide. Sodium chloride tab 1 g once today. Repeat labs in the morning.
--- NOTE | 2024-02-17 11:50 | P.PN ---
Subjective Progress Note Date: 02/17/24 Principal diagnosis: Weakness. Patient is a 88-year-old white female with past medical history significant for hypertension, hyperlipidemia, osteoporosis, and alcoholism. Patient currently reportedly drinks 2, 24 ounce beers per day. She lives with her [id number]. Reportedly treated outpatient approximately 1 month ago for urinary tract infection. Her primary care provider is a nurse practitioner Marleny Cheema. She has been very weak. Reports reduced appetite. Continues to drink beer. Patient did have a fall last night, she was reportedly in the bathroom and lost her balance. She fell against the toilet, and landed on her bottom. Denies hitting her head. Denies losing consciousness. She was found to be severely hyponatremic in the emergency room. I was called by the ER physician, for an ICU evaluation. Patient reportedly appeared to have dry mucous membranes and hypovolemic. While in the emergency room, patient was given a 1 L normal saline bolus, and IV normal saline was started at 75 mL/h. Subsequent sodium improved to 116. Nephrology has been consulted for management. Appropriate urine studies are pending. No altered mental status. No seizures. Patient is currently resting comfortably on 1 L/min nasal cannula. No acute distress. Ch est x-ray on admission showed cardiomegaly with mild pulmonary vascular congestion. Patient reportedly does take Lasix outpatient. On my evaluation, she does have lower extremity swelling. Denies any nausea, vomiting, diarrhea, abdominal pain. Multiple CAT scans have been performed including a CT of the cervical spine without contrast which did not show any acute fractures or subluxation of the cervical spine. There was a CT of the pelvis which did not show any acute osseous traumatic injury involving the pelvis. A CT of the thoracic aorta showed a fusiform infrarenal abdominal aortic aneurysm measuring 8.2 x 8.5 cm in size. There was eccentric atheromatous material noted internally within the aneurysm. No dissection or penetrating ulcer. There was mild hydroureteronephrosis with ureterectasis extending to the bladder. No obstructive ureteral stones. CBC on arrival: WBC count 7.2, hemoglobin 16.3, hematocrit 40.1, platelets 355. Most recent follow-up BMP includes a sodium 11 6, potassium 3.3, chloride 89, serum bicarb 22, BUN 4, creatinine 0.39, glucose 86. LFTs mildly elevated. Urinalysis unremarkable. Urine toxicology screen also unremarkable. Serum alcohol level 87. Patient denies any history of delirium tremens or alcohol withdrawal seizures. No known history of malignancy. If the patient is not going to be given 3% sodium chloride, no need for ICU admission. Progress note dated February 15, 2024. 88-year-old female admitted with a diagnosis of weakness, and hyponatremia. Currently, she is seen today in room 351. She is getting saline at 50 cc an hour. She is getting oxygen by nasal cannula 2 L. She appears to be relatively stable. Current laboratory data includes a white count 6.8, hemoglobin 15.2, hematocrit 46.7, and a normal platelet count. Sodium is up to 126, from 118. Potassium 3.2, chlorides 92, CO2 30, BUN 6, creatinine 0.49. Bilirubin is 1.7. AST is 61. Albumin is 3.8. Troponins were 0.012, 0.013, and less than 0.012. Progress note dated February 16, 2024. 88-year-old female admitted with a diagnosis of weakness, and hyponatremia. Currently, she is seen today in room 351. She is on 2 L of oxygen. Today sodium is up to 128. She appears to be relatively stable. I asked her why she drinks so much beer, and she states "I like it". She appears relatively comfortable. Additional laboratory data includes a white count 5.8, hemoglobin 13.8, hematocrit 42.6, platelet count 250,000. Sodium 128, potassium 3.9, chlorides 100, CO2 27, BUN 7, creatinine 0.45. The patient's AST is 51. Albumin is 3.2. Progress note dated February 17, 2024. The patient is seen today room 351. She is on saline at 20 cc an hour, and oxygen by nasal cannula at 4 L. She appears in no distress. She is much more awake and alert. She is feeling better. Current laboratory data includes a white count 7.9, hemoglobin 13.6, hematocrit 42.1, and platelet count 220,000. Sodium 127, potassium 3.8, chloride 99, CO2 28, BUN 8, and creatinine 0.43. Albumin is 2.9. Objective - Vital Signs Vital signs: Vital Signs Temp 98.0 F 02/16/24 20:00 Pulse 75 02/17/24 09:34 Resp 17 02/17/24 09:34 BP 135/75 02/17/24 08:10 Pulse Ox 95 02/17/24 08:10 FiO2 Intake & Output 02/16/24 02/17/24 02/17/24 18:59 06:59 18:59 Intake Total 1000 120 Output Total 450 300 Balance 550 -180 Intake: Oral 1000 120 Output: Urine 450 300 Other: Voiding Method External Catheter External Catheter External Catheter # Voids 0 1 # Bowel Movements 1 1 - Exam No acute distress, oriented 3. The patient is currently on 4 L by nasal cannula. HEENT examination is grossly unremarkable. Mucous membranes are moist. No oral lesions. Neck supple. Full range of motion. No adenopathy thyromegaly or neck vein distention. Cardiovascular examination reveals regular rhythm rate. S1-S2 normal. No S3 or S4. No discernible murmur noted. Heart rate 75 bpm. Heart sounds are distant. Lungs reveal clear breath sounds. Breath sounds are equal bilaterally. No adventitious lung sounds including wheezes rhonchi or crackles. 4 L saturation is 95%. Abdomen soft bowel sounds are heard. No masses or tenderness. Extremities are intact. No cyanosis or clubbing. Mild edema noted. Skin is without rash or lesion. Neurologic examination is brief but nonfocal. - Labs CBC & Chem 7: 02/17/24 09:08 02/17/24 09:08 Labs: Abnormal Lab Results - Last 24 Hours (Table) 02/16/24 02/17/24 Range/Units 06:28 09:08 Sodium 127 L (137-145) mmol/L Creatinine 0.43 L (0.52-1.04) mg/dL AST 47 H (14-36) U/L Total Protein 5.1 L (6.3-8.2) g/dL Albumin 2.9 L (3.5-5.0) g/dL Urine Osmolality 178 L (400-1100) mOsm/kg Assessment and Plan Assessment: Fall, with generalized weakness. Alcohol intoxication, serum alcohol level 87. Severe hyponatremia, improved, secondary to beer potomania. Acute hypoxemic respiratory failure, secondary to mild pulmonary vascular congestion, and possible CHF. Fusiform infrarenal abdominal aortic aneurysm, measuring 8.2 x 8.5 cm. History of chronic alcohol abuse. Former tobacco dependence. History of hypertension. History of hyperlipidemia. Plan: Plan dated February 15, 2024. The patient is receiving saline at 50 cc an hour. The patient is on oxygen at 2 L. Her sodium today was 126. She was admitted with a sodium of 113. Labs, x- rays, and all medications are reviewed. We will continue to follow the patient, make recommendations along the way. The patient is a DO NOT RESUSCITATE patient. No additional recommendations are made at this time. Prognosis is guarded. Plan dated February 16, 2024. The patient is doing much better. She is much more awake and alert. She still very weak. Her sodium today is up to 128. Labs, x-rays, and medications are reviewed. The patient continues on 2 L of oxygen. The patient is not receiving any IV fluids. We will continue to follow the patient. Prognosis is guarded. Her respiratory status is stable. Plan dated February 17, 2024. The patient is doing much better. Today sodium is a bit down, from yesterday. Yesterday her sodium was 128. It is 127 today. She is much more awake and alert. She continues on oxygen at 4 L. Her vital signs are otherwise stable. She denies any shortness of breath, cough, wheezing, chest tightness, or phlegm production. We will continue to follow. Prognosis is guarded. Time with Patient: Less than 30
--- NOTE | 2024-02-17 12:02 | P.PN ---
Subjective Progress Note Date: 02/17/24 Reason for Consult (text): Cardiac clearance for EVAR on 02/16 History of present illness: This is an 88-year-old female with past medical history of hypertension, hyperlipidemia, osteoporosis, alcohol abuse. We have been asked to evaluate the patient for cardiac clearance for EVAR scheduled for 02/16. Patient states that she came into the hospital because she lost her balance and fell and now complains of back pain. She denies any lightheadedness or dizziness prior to that and she denies any loss of consciousness. No chest pain. No palpitations. She denies any previous cardiac history and does not follow with a occupational health rn. She states she is normally wheelchair-bound and does not walk. Regarding alcohol intake, patient states she drinks tall boy beers and her last intake was on Tuesday. Patient is seen today in the emergency center waiting for bed on the cardiac stepdown unit EKG Q waves in the inferior leads Chest x-ray: Cardiomegaly and mild pulmonary vascular congestion. CT angiogram of the chest: Ascending aorta within normal limits. Groundglass opacity in the peripheral right upper lobe. Subacute healing left lateral fifth rib fracture. CT angiogram abdomen and pelvis reveals fusiform infrarenal abdominal aortic aneurysm 8.2 x 8.5 cm. Mild hydroureteronephrosis. No bowel obstruction. Laboratory studies: WBC 7.2, hemoglobin 16.3. Initial sodium 113 and now at 118, potassium 3.5, BUN 16 creatinine 0.41. Osmolality 252. TSH 0.588, proBNP 687. Total bilirubin 1.6, AST 69, alkaline phosphatase 35. Magnesium 1.6. Urine drug screen negative. Serum alcohol 87. Home cardiac medications: Amlodipine 10 mg daily, atorvastatin 40 mg daily. 02/14 Patient denies having any chest pain no shortness of breath. Echocardiogram reveals EF of 55 to 60%. Results reviewed with the patient. She continues to have some wheezing. Patient was a smoker and quit 15 years ago. Blood pressure 146/74, heart rate 69, pulse ox 95% on 2 L nasal cannula. Troponins were negative x 3. Last documented sodium was 118. There is still plan for EVAR on Tuesday. 02/15 Blood pressure 111/65, heart rate 88, pulse ox 94% on 2 L nasal cannula. Repeat blood work reveals sodium 128, potassium 3.9, creatinine 0.45. Hemoglobin 13.8. 02/16 Patient is scheduled for surgery today. She denies any chest pain or shortness of breath. Blood pressure 135/75, heart rate in the 70s, pulse ox 95% on 2 L nasal cannula. Repeat blood work reveals sodium 127, potassium 3.8, creatinine 0.43. Physical examination: Gen: This is an 88-year-old female in no acute distress VS: reviewed HEENT: Head is atraumatic, normocephalic. Pupils equal, round. Sclerae is anicteric. LUNGS: Clear to auscultation. No wheezes or rhonchi. No intercostal retrac tions. HEART: Regular rate and rhythm. No murmur. EXTREMITIES: No pedal edema. No calf tenderness. NEUROLOGICAL: Patient is awake, alert and oriented x3. Assessment: Mechanical fall Alcohol intoxication Severe hyponatremia Fusiform infrarenal abdominal aortic aneurysm measuring 8.2 x 8.5 cm Hypertension Hyperlipidemia History of alcoholism Former tobacco use and dependence Plan: Continue patient's home cardiac medications Patient is cleared for surgery scheduled for Tuesday. Cardiology will sign off this case and follow on an as-needed basis. Please reconsult for any new concerns. Nurse practitioner note has been reviewed, I agree with documented findings and plan of care. Patient was seen and examined. Objective - Vital Signs Vital signs: Vital Signs Temp 98.0 F 02/16/24 20:00 Pulse 77 02/17/24 04:00 Resp 17 02/17/24 04:00 BP 135/77 02/17/24 04:00 Pulse Ox 98 02/17/24 04:00 FiO2 Intake & Output 02/16/24 02/17/24 02/17/24 18:59 06:59 18:59 Intake Total 1000 120 Output Total 450 300 Balance 550 -180 Intake: Oral 1000 120 Output: Urine 450 300 Other: Voiding Method External Catheter External Catheter # Voids 0 1 # Bowel Movements 1 - Labs CBC & Chem 7: 02/17/24 09:08 02/17/24 09:08 Labs: Abnormal Lab Results - Last 24 Hours (Table) 02/16/24 02/16/24 Range/Units 06:28 07:16 Sodium 128 L (137-145) mmol/L Creatinine 0.45 L (0.52-1.04) mg/dL AST 51 H (14-36) U/L Total Protein 5.4 L (6.3-8.2) g/dL Albumin 3.2 L (3.5-5.0) g/dL Urine Osmolality 178 L (400-1100) mOsm/kg
[2024-02-17] MEDS: IPRATROPIUM-ALBUTEROL 3 ML NEB INHALATION STA (12:31)
[2024-02-17] MEDS ORDERED: LIDOCAINE 1% INJ 10MG/ML (20 ML MDV) ONE ×2 (13:29→13:43)
[2024-02-17] MEDS ORDERED: ROCURONIUM 10 MG/ML (5 ML VIAL) IV ONE (13:43)
[2024-02-17] MEDS ORDERED: SUCCINYLCHOLINE CHLORIDE 200 MG/10 ML VIAL IV ONE (13:43)
[2024-02-17] MEDS ORDERED: HEPARIN SODIUM,PORCINE 10,000 UNIT/ML 1 ML VIAL ONE (13:43)
[2024-02-17] MEDS ORDERED: ceFAZolin 1 GM/50 ML BAG (PMX) ONE (13:43)
[2024-02-17] MEDS ORDERED: PROPOFOL 10 MG/ML 20 ML VIAL IV ONE (13:43)
[2024-02-17] MEDS ORDERED: hydrALAZINE HCL 20 MG/ML 1 ML VIAL ONE (13:43)
[2024-02-17] MEDS ORDERED: GLYCOPYRROLATE 0.2 MG/ML 2 ML VIAL ONE (13:43)
[2024-02-17] MEDS ORDERED: SUGAMMADEX SODIUM 200 MG/2 ML SDV IV ONE (13:43)
[2024-02-17] MEDS ORDERED: MIDAZOLAM 2 MG/2 ML VIAL ONE (13:43)
[2024-02-17] MEDS ORDERED: fentaNYL (PF) 50 MCG/ML 2 ML AMP ONE (13:43)
[2024-02-17] MEDS ORDERED: NEOSTIGMINE 1 MG/ML 10 ML VIAL ONE (13:43)
[2024-02-17] MEDS: LIDOCAINE 1% INJ 10MG/ML (20 ML MDV) SQ ONE (14:22)
[2024-02-17] MEDS: LACTATED RINGERS 1,000 ML IV ONE (14:23)
[2024-02-17] MEDS ORDERED: NALOXONE 0.4 MG/ML 10 ML VIAL IVP PRN (15:43)
--- NOTE | 2024-02-17 15:43 | P.OP ---
Date of Procedure: 02/17/24 Preoperative Diagnosis: Large infrarenal AAA 8.5 cm Postoperative Diagnosis: Same Procedure(s) Performed: Percutaneous endovascular aortic repair with alto graft Percutaneous closure of bilateral femoral arteries with Perclose Anesthesia: MILEY Surgeon: Karel Shultz Estimated Blood Loss (ml): 20 Pathology: none sent Condition: stable Disposition: PACU Indications for Procedure: 88-year-old female who presented to the hospital after a fall and during her workup was found to have an 8.5 cm AAA presents to the endovascular suite for EVAR. Description of Procedure: After written and informed consent was obtained and all risks, benefits and complications were discussed the patient was brought to the endovascular suite and laid in a supine position. Timeout was performed in usual fashion and patient was given antibiotics prior to access. The bilateral groins were prepped and draped in usual sterile fashion after appropriate anesthesia was performed per anesthesiology. Ultrasound was used to visualize the right and left common femoral arteries and access to the vessels was obtained under ultrasound guidance such that bright red pulsatile blood was expressed through the needle. A guidewire was inserted, incisions with an 11 blade scalpel were made over the wires, followed by dilation of the tracts with 6 Armenian access sheaths. Following dilation, 6 Armenian Perclose proglide devices were used to place sutures in the bilateral common femoral arteries which were held in place using hemostats. An 8 Armenian sheath was then inserted into the right common femoral artery and a 8 Armenian sheath was inserted in the left. Patient was administered heparin and followed with ACTs and re-dosing as needed for ACT >200. A 035 Guidewire was inserted into the right sided sheath and advanced into the thoracic aorta using a 100cm 5 honduran glidecath. A second guidewire was inserted into the left side sheath followed by a 100cm pigtail catheter. Angiogram was performed to measure vessel lengths and characterize the anatomy and its topography. A 26 mm Leeds aortic body was then loaded over the right sided guidewire after removal of the 8 honduran sheath. The delivery system was inserted into the vasculature and advanced until the implant radiopaque markers were approximately 1 cm proximal to the intended landing site. Orientation of the aortic body to the desired position for appropriate access to the contralateral aortic body limb was obtained by angiogram. The first segment of the proximal stent was deployed in usual fashion and balloon was inflated to open the main body crown and orientation was performed with fluoroscopy. The pigtail catheter was withdrawn once measurements obtained for proximal landing zone just below the renal arteries. The remainder of the proximal stent was then deployed in usual fashion. The aortic body guidewire until the stiff the floppy transition was within the aortic body ipsilateral leg. Radiopaque polymer was then injected under direct visualization of fluoroscopy. Contralateral limb access was then obtained using [the integrated crossover lumen in the aortic body delivery system and snare catheter to facilitate placement of 0.14 command wire. A 5fr kenney catheter into the contralateral side and susan wired an 014 wire into the graft and descending thoracic aorta.] An angled catheter was guided into the contralateral limb and wire was exchaged for a stiff wire and pigtail catheter was placed and spun to assure access into the graft. A retrograde angiogram was obtained to confirm contralateral limb length. We maintained guidewire position to remove the angiographic catheter and introducer sheath from the contralateral access site. A 16 x 160 mm iliac limb delivery system over the left sided guidewire was placed and deployed in normal fashion. The deployment sheath was removed by maintaining position of the sheath and retracted the catheter handle to receive the nose cone and the end of the delivery system outer sheath. Another 16 x 120 mm stent was placed in usual fashion to the takeoff of the internal iliac artery. Aortic body guidewire was repositioned into the aorta and the proximal sealing ring was ballooned. The main body deployment catheter was removed in usual fashion and pigtail catheter was placed in the ipsilateral limb and retrograde angiogram was performed for length measurements. A 16 x 160mm iliac limb was chosen and delivered in usual fashion. Two 12 x 40 mm balloons were placed bilaterally to perform additional angioplasty of the stent graft. Balloons were removed and pigtail catheter was placed and final angiogram was obtained demonstrating exclusion of the aortic aneurysm without evidence of endoleak. The vascular access sites were closed using the sutures of the previously performed Perclose device after removal of guidewires, catheters and sheath. Hemostasis was achieved. The patient tolerated the procedure well and had palpable pulses. Dressings were placed and patient was sent to PACU for recovery.
[2024-02-17] MEDS: IV FLUID CONTINUATION 400 ML IV ONE (16:00)
[2024-02-17] MEDS: HYDROmorphone 0.5 MG/0.5 ML SYRINGE IVP ONE (16:59)
[2024-02-17] MEDS: SODIUM CHLORIDE TAB 1 GM TAB PO STA (18:12)
[2024-02-18] MEDS: ASPIRIN 81 MG PO SCH (08:50)
--- NOTE | 2024-02-18 09:25 | P.PN ---
Subjective Progress Note Date: 02/18/24 Patient seen and examined. No complaints or concerns. Has not really been out of bed due to being wheelchair dependent at baseline. No acute distress resting comfortably. Berrios catheter in place. Abdomen soft. Bilateral groins clean and dry. No hematoma. Palpable DP pulses bilaterally. Postop abdominal aortic aneurysm repair Doing well. From a vascular surgery standpoint may increase activity. May remove Berrios. Stable for discharge when cleared per medicine. Objective - Vital Signs Vital signs: Vital Signs Temp 98.3 F 02/18/24 04:10 Pulse 85 02/18/24 04:10 Resp 17 02/18/24 04:10 BP 126/70 02/18/24 04:10 Pulse Ox 94 L 02/18/24 04:10 FiO2 Intake & Output 02/17/24 02/18/24 02/18/24 18:59 06:59 18:59 Intake Total 600 138 118 Output Total 750 975 Balance -150 -837 118 Intake: IV 600 20 Invasive Line 2 20 Oral 118 118 Output: Urine 750 975 Other: Voiding Method External Catheter Indwelling Catheter # Bowel Movements 1 - Labs CBC & Chem 7: 02/17/24 09:08 02/17/24 09:08 Labs: Abnormal Lab Results - Last 24 Hours (Table) 02/17/24 Range/Units 09:08 Sodium 127 L (137-145) mmol/L Creatinine 0.43 L (0.52-1.04) mg/dL AST 47 H (14-36) U/L Total Protein 5.1 L (6.3-8.2) g/dL Albumin 2.9 L (3.5-5.0) g/dL
[2024-02-18 09:48] LABS: Basophils % (A) 0 %; Eosinophils # (A) 0.2 k/uL (0-0.7); Eosinophils % (A) 2 %; HGB 12.7 gm/dL (11.4-16.0); Lymphocytes # (A) 0.5 k/uL (1.0-4.8); Lymphocytes % (A) 5 %; MCH 30.8 pg (25.0-35.0); MCHC 32.6 g/dL (31.0-37.0); MCV 94.2 fL (80.0-100.0); Mean Platelet Volume 9.7; Monocytes # (A) 0.9 k/uL (0-1.0); Monocytes % (A) 8 %; Neutrophils # (A) 8.5 k/uL (1.3-7.7); Neutrophils % (A) 82 %; Platelet Count 210 k/uL (150-450); RBC 4.14 m/uL (3.80-5.40); RDW 13.1 % (11.5-15.5); WBC 10.4 k/uL (3.8-10.6)
[2024-02-18 10:17] LABS: African American GFR (CKD) >90 (>60 ml/min/1.73 sqM); Anion Gap 2 mmol/L; Blood Urea Nitrogen 8 mg/dL (7-17); Calcium 8.2 mg/dL (8.4-10.2); Carbon Dioxide 29 mmol/L (22-30); Chloride 96 mmol/L (98-107); Glucose 129 mg/dL (74-99); Magnesium 1.5 mg/dL (1.6-2.3); Non-African American GFR(CKD) >90 (>60 ml/min/1.73 sqM); Potassium 3.4 mmol/L (3.5-5.1); Sodium 127 mmol/L (137-145)
--- NOTE | 2024-02-18 10:27 | P.PN ---
Subjective Patient is seen in follow-up for hyponatremia. Sodium level stable at 127 this morning. Currently off IV fluids. Oral intake is fair. Denies vomiting or diarrhea. Vital signs are stable. General: No acute distress. HEENT: Head exam is unremarkable. LUNGS: No audible rhonchi or wheezes. HEART: Rate and Rhythm are regular. ABDOMEN: Nontender. EXTREMITITES: No edema. Chronic changes noted. Objective - Vital Signs Vital signs: Vital Signs Temp 98.3 F 02/18/24 04:10 Pulse 85 02/18/24 04:10 Resp 17 02/18/24 04:10 BP 126/70 02/18/24 04:10 Pulse Ox 94 L 02/18/24 04:10 FiO2 Intake & Output 02/17/24 02/18/24 02/18/24 18:59 06:59 18:59 Intake Total 600 138 118 Output Total 750 975 Balance -150 -837 118 Intake: IV 600 20 Invasive Line 2 20 Oral 118 118 Output: Urine 750 975 Other: Voiding Method External Catheter Indwelling Catheter # Bowel Movements 1 - Labs CBC & Chem 7: 02/18/24 08:15 02/18/24 08:15 Labs: Abnormal Lab Results - Last 24 Hours (Table) 02/18/24 02/18/24 Range/Units 08:15 08:15 Neutrophils # 8.5 H (1.3-7.7) k/uL Lymphocytes # 0.5 L (1.0-4.8) k/uL Sodium 127 L (137-145) mmol/L Potassium 3.4 L (3.5-5.1) mmol/L Chloride 96 L (98-107) mmol/L Creatinine 0.46 L (0.52-1.04) mg/dL Glucose 129 H (74-99) mg/dL Calcium 8.2 L (8.4-10.2) mg/dL Magnesium 1.5 L (1.6-2.3) mg/dL Assessment and Plan Plan: Assessment: 1. Hyponatremia. Component of hypovolemia and poor solute intake. Status post salt tab last night. Sodium 127 this morning. TSH normal. Urine sodium 21. Urine osmolality 232 and 178 when repeated. 2. Status post fall. 3. Alcohol abuse. 4. Benign hypertension. Controlled. 5. Hypokalemia from poor intake. 6. Abdominal aortic aneurysm. Vascular surgery following. Status post endovascular aortic repair with graft February 17, 2024. 7. Hypomagnesemia from poor intake. On oral magnesium oxide. Plan: Encouraged oral intake. Maintain fluid restriction. Replace potassium and magnesium. Samsca 7.5 mg once today. Repeat labs in the morning.
[2024-02-18] MEDS: MAGNESIUM SULFATE-D5W PMX 1 GM in DEXTROSE/WATER 1 100ML.BAG IVPB SCH (12:19)
[2024-02-18] MEDS: TOLVAPTAN 15 MG TABLET PO ONE (12:19)
[2024-02-18] MEDS: POTASSIUM CHLORIDE ER 20 MEQ TAB.ER PO STA (12:19)
--- NOTE | 2024-02-18 12:35 | P.PN ---
Subjective Progress Note Date: 02/18/24 Principal diagnosis: Weakness. Patient is a 88-year-old white female with past medical history significant for hypertension, hyperlipidemia, osteoporosis, and alcoholism. Patient currently reportedly drinks 2, 24 ounce beers per day. She lives with her [id number]. Reportedly treated outpatient approximately 1 month ago for urinary tract infection. Her primary care provider is a nurse practitioner Marleny Cheema. She has been very weak. Reports reduced appetite. Continues to drink beer. Patient did have a fall last night, she was reportedly in the bathroom and lost her balance. She fell against the toilet, and landed on her bottom. Denies hitting her head. Denies losing consciousness. She was found to be severely hyponatremic in the emergency room. I was called by the ER physician, for an ICU evaluation. Patient reportedly appeared to have dry mucous membranes and hypovolemic. While in the emergency room, patient was given a 1 L normal saline bolus, and IV normal saline was started at 75 mL/h. Subsequent sodium improved to 116. Nephrology has been consulted for management. Appropriate urine studies are pending. No altered mental status. No seizures. Patient is currently resting comfortably on 1 L/min nasal cannula. No acute distress. Ch est x-ray on admission showed cardiomegaly with mild pulmonary vascular congestion. Patient reportedly does take Lasix outpatient. On my evaluation, she does have lower extremity swelling. Denies any nausea, vomiting, diarrhea, abdominal pain. Multiple CAT scans have been performed including a CT of the cervical spine without contrast which did not show any acute fractures or subluxation of the cervical spine. There was a CT of the pelvis which did not show any acute osseous traumatic injury involving the pelvis. A CT of the thoracic aorta showed a fusiform infrarenal abdominal aortic aneurysm measuring 8.2 x 8.5 cm in size. There was eccentric atheromatous material noted internally within the aneurysm. No dissection or penetrating ulcer. There was mild hydroureteronephrosis with ureterectasis extending to the bladder. No obstructive ureteral stones. CBC on arrival: WBC count 7.2, hemoglobin 16.3, hematocrit 40.1, platelets 355. Most recent follow-up BMP includes a sodium 11 6, potassium 3.3, chloride 89, serum bicarb 22, BUN 4, creatinine 0.39, glucose 86. LFTs mildly elevated. Urinalysis unremarkable. Urine toxicology screen also unremarkable. Serum alcohol level 87. Patient denies any history of delirium tremens or alcohol withdrawal seizures. No known history of malignancy. If the patient is not going to be given 3% sodium chloride, no need for ICU admission. Progress note dated February 15, 2024. 88-year-old female admitted with a diagnosis of weakness, and hyponatremia. Currently, she is seen today in room 351. She is getting saline at 50 cc an hour. She is getting oxygen by nasal cannula 2 L. She appears to be relatively stable. Current laboratory data includes a white count 6.8, hemoglobin 15.2, hematocrit 46.7, and a normal platelet count. Sodium is up to 126, from 118. Potassium 3.2, chlorides 92, CO2 30, BUN 6, creatinine 0.49. Bilirubin is 1.7. AST is 61. Albumin is 3.8. Troponins were 0.012, 0.013, and less than 0.012. Progress note dated February 16, 2024. 88-year-old female admitted with a diagnosis of weakness, and hyponatremia. Currently, she is seen today in room 351. She is on 2 L of oxygen. Today sodium is up to 128. She appears to be relatively stable. I asked her why she drinks so much beer, and she states "I like it". She appears relatively comfortable. Additional laboratory data includes a white count 5.8, hemoglobin 13.8, hematocrit 42.6, platelet count 250,000. Sodium 128, potassium 3.9, chlorides 100, CO2 27, BUN 7, creatinine 0.45. The patient's AST is 51. Albumin is 3.2. Progress note dated February 17, 2024. The patient is seen today room 351. She is on saline at 20 cc an hour, and oxygen by nasal cannula at 4 L. She appears in no distress. She is much more awake and alert. She is feeling better. Current laboratory data includes a white count 7.9, hemoglobin 13.6, hematocrit 42.1, and platelet count 220,000. Sodium 127, potassium 3.8, chloride 99, CO2 28, BUN 8, and creatinine 0.43. Albumin is 2.9. Progress note dated February 18, 2024. The patient is seen today in room 351. The patient continues to show steady improvement. She is currently on 4 L. She is receiving lactated Ringer's at 20 cc an hour. She has no specific complaints. She was admitted with a diagnosis of hyponatremia, from excessive beer drinking. Current laboratory data includes a white count 10.4, hemoglobin 12.7, hematocrit 39, and a normal platelet count. Sodium 127, potassium 3.4, chloride 96, CO2 29, BUN 8, creatinine 0.46. Glucose 129. Calcium 8.2, magnesium 1.5. Objective - Vital Signs Vital signs: Vital Signs Temp 98.8 F 02/18/24 08:00 Pulse 68 02/18/24 08:00 Resp 16 02/18/24 08:00 BP 142/62 02/18/24 08:00 Pulse Ox 96 02/18/24 08:00 FiO2 Intake & Output 02/17/24 02/18/24 02/18/24 18:59 06:59 18:59 Intake Total 600 138 118 Output Total 750 975 900 Balance -150 -837 -782 Intake: IV 600 20 Invasive Line 2 20 Oral 118 118 Output: Urine 750 975 900 Other: Voiding Method External Catheter Indwelling Catheter Indwelling Catheter # Bowel Movements 1 - Exam No acute distress, oriented 3. The patient is currently on 4 L by nasal cannula. HEENT examination is grossly unremarkable. Mucous membranes are moist. No oral lesions. Neck supple. Full range of motion. No adenopathy thyromegaly or neck vein distention. Cardiovascular examination reveals regular rhythm rate. S1-S2 normal. No S3 or S4. No discernible murmur noted. Heart rate 1 bpm. Heart sounds are distant. Lungs reveal clear breath sounds. Breath sounds are equal bilaterally. No adventitious lung sounds including wheezes rhonchi or crackles. 4 L saturation is 96 %. Abdomen soft bowel sounds are heard. No masses or tenderness. Extremities are intact. No cyanosis or clubbing. Mild edema noted. Skin is without rash or lesion. Neurologic examination is brief but nonfocal. - Labs CBC & Chem 7: 02/18/24 08:15 02/18/24 08:15 Labs: Abnormal Lab Results - Last 24 Hours (Table) 02/18/24 02/18/24 Range/Units 08:15 08:15 Neutrophils # 8.5 H (1.3-7.7) k/uL Lymphocytes # 0.5 L (1.0-4.8) k/uL Sodium 127 L (137-145) mmol/L Potassium 3.4 L (3.5-5.1) mmol/L Chloride 96 L (98-107) mmol/L Creatinine 0.46 L (0.52-1.04) mg/dL Glucose 129 H (74-99) mg/dL Calcium 8.2 L (8.4-10.2) mg/dL Magnesium 1.5 L (1.6-2.3) mg/dL Assessment and Plan Assessment: Fall, with generalized weakness. Alcohol intoxication, serum alcohol level 87. Severe hyponatremia, improved, secondary to beer potomania. Acute hypoxemic respiratory failure, secondary to mild pulmonary vascular congestion, and possible CHF. Fusiform infrarenal abdominal aortic aneurysm, measuring 8.2 x 8.5 cm. History of chronic alcohol abuse. Former tobacco dependence. History of hypertension. History of hyperlipidemia. Plan: Plan dated February 15, 2024. The patient is receiving saline at 50 cc an hour. The patient is on oxygen at 2 L. Her sodium today was 126. She was admitted with a sodium of 113. Labs, x- rays, and all medications are reviewed. We will continue to follow the patient, make recommendations along the way. The patient is a DO NOT RESUSCITATE patient. No additional recommendations are made at this time. Prognosis is guarded. Plan dated February 16, 2024. The patient is doing much better. She is much more awake and alert. She still very weak. Her sodium today is up to 128. Labs, x-rays, and medications are reviewed. The patient continues on 2 L of oxygen. The patient is not receiving any IV fluids. We will continue to follow the patient. Prognosis is guarded. Her respiratory status is stable. Plan dated February 17, 2024. The patient is doing much better. Today sodium is a bit down, from yesterday. Yesterday her sodium was 128. It is 127 today. She is much more awake and alert. She continues on oxygen at 4 L. Her vital signs are otherwise stable. She denies any shortness of breath, cough, wheezing, chest tightness, or phlegm production. We will continue to follow. Prognosis is guarded. Plan dated February 18, 2024. The patient appears to be doing well. Her sodium today is 127. That is what it was yesterday. She continues on 4 L of oxygen. The patient is receiving lact ated Ringer's at 20 cc an hour. We will continue to follow make recommendations along the way. Overall prognosis remains very guarded. Labs, x-rays, and medications are reviewed. Time with Patient: Less than 30
--- NOTE | 2024-02-18 20:00 | P.PN ---
Subjective Progress Note Date: 02/18/24 Assumed care of this patient today by the primary care provider. Patient is evaluated in follow up today with sodium level of 127 after receiving sodium chloride tab yesterday. Nephrology following. 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 Sodium level is 127 again today. Potassium 3.5, magnesium 1.5. Patient is on fluid restriction will need to see physical therapy. Review of Systems Constitutional: Denied any fatigue denied any fever. Cardio vascular: denied any chest pain, palpitations Gastrointestinal: denied any nausea, vomiting, diarrhea Pulmonary: Denied any shortness of breath cough Neurologic denied any new focal deficits All inpatient medications were reviewed and appropriate changes in these medicat ions as dictated in the interval history and assessment and plan. PHYSICAL EXAMINATION: GENERAL: The patient is alert and oriented x3, not in any acute distress. Well developed, well nourished. HEENT: Pupils are round and equally reacting to light. EOMI. No scleral icterus. No conjunctival pallor. Normocephalic, atraumatic. No pharyngeal erythema. No thyromegaly. CARDIOVASCULAR: S1 and S2 present. No murmurs, rubs, or gallops. PULMONARY: Chest is clear to auscultation, no wheezing or crackles. ABDOMEN: Soft, nontender, nondistended, normoactive bowel sounds. No palpable organomegaly. MUSCULOSKELETAL: No joint swelling or deformity. Bilateral groin punctures soft with no bruising or swelling noted. EXTREMITIES: No cyanosis, clubbing, or pedal edema. NEUROLOGICAL: Gross neurological examination did not reveal any focal deficits. SKIN: No rashes. Assessment and Plan Infrarenal AAA postoperative day #1 endovascular aortic repair with graft Hyponatremia, hypovolemic and poor oral intake. Patient is off IV fluids and now on fluid restriction. Status post sodium chloride tab with minimal improvement. Nephrology following and recommending samsca x 1 and repeat BMP in the AM. Status post fall at home due to generalized weakness and dehydration Hypertension continue to monitor. Continues on home dose of amlodipine. PRN hydralazine. Hx of alcoholism Hypomagnesemia/hypokalemia from poor oral intake will be replaced with oral supplementation and repeat blood work in the AM. Hyperlipidemia maintained on statin therapy Former smoker GI prophylaxis DVT prophylaxis Do Not Resuscitate/Do Not Intubate Samsca x 1 today per nephrology. Patient will need to see PT/OT for discharge planning repeat blood work in the AM. The impression and plan of care has been dictated by Cecile Beatty, Nurse Practitioner as directed. Dr. Mj MD I have performed a history and physical examination and medical decision making of this patient, discussed the same with the dictator, and agree with the dictators assessment and plan as written, documented as a scribe. Based on total visit time, I have performed more than 50% of this visit. Objective - Vital Signs Vital signs: Vital Signs Temp 98.1 F 02/18/24 12:00 Pulse 83 02/18/24 16:00 Resp 18 02/18/24 16:00 BP 125/64 02/18/24 16:00 Pulse Ox 94 L 02/18/24 16:00 FiO2 Intake & Output 02/18/24 02/18/24 02/19/24 06:59 18:59 06:59 Intake Total 138 118 Output Total 975 1600 Balance -837 -1482 Intake: IV 20 Invasive Line 2 20 Oral 118 118 Output: Urine 975 1600 Other: Voiding Method Indwelling Catheter Indwelling Catheter - Labs CBC & Chem 7: 02/18/24 08:15 02/18/24 08:15 Labs: Abnormal Lab Results - Last 24 Hours (Table) 02/18/24 02/18/24 Range/Units 08:15 08:15 Neutrophils # 8.5 H (1.3-7.7) k/uL Lymphocytes # 0.5 L (1.0-4.8) k/uL Sodium 127 L (137-145) mmol/L Potassium 3.4 L (3.5-5.1) mmol/L Chloride 96 L (98-107) mmol/L Creatinine 0.46 L (0.52-1.04) mg/dL Glucose 129 H (74-99) mg/dL Calcium 8.2 L (8.4-10.2) mg/dL Magnesium 1.5 L (1.6-2.3) mg/dL Assessment and Plan Time with Patient: Less than 30
[2024-02-19 09:05] LABS: African American GFR (CKD) >90 (>60 ml/min/1.73 sqM); Anion Gap 2 mmol/L; Blood Urea Nitrogen 7 mg/dL (7-17); Calcium 8.5 mg/dL (8.4-10.2); Carbon Dioxide 30 mmol/L (22-30); Chloride 100 mmol/L (98-107); Glucose 94 mg/dL (74-99); Non-African American GFR(CKD) >90 (>60 ml/min/1.73 sqM); Potassium 3.9 mmol/L (3.5-5.1); Sodium 132 mmol/L (137-145)
--- NOTE | 2024-02-19 10:21 | P.PN ---
Subjective Patient is seen in follow-up for hyponatremia. Sodium level improved to 132 this morning. Oral intake is fair. Denies vomiting or diarrhea. Vital signs are stable. General: No acute distress. HEENT: Head exam is unremarkable. LUNGS: No audible rhonchi or wheezes. HEART: Rate and Rhythm are regular. ABDOMEN: Nontender. EXTREMITITES: No edema. Chronic changes noted. Objective - Vital Signs Vital signs: Vital Signs Temp 98.6 F 02/19/24 08:00 Pulse 80 02/19/24 08:00 Resp 16 02/19/24 08:00 BP 130/70 02/19/24 08:00 Pulse Ox 94 L 02/19/24 08:00 FiO2 Intake & Output 02/18/24 02/19/24 02/19/24 18:59 06:59 18:59 Intake Total 118 20 190 Output Total 1600 650 300 Balance -1482 -630 -110 Intake: IV 20 10 Invasive Line 2 20 10 Oral 118 180 Output: Urine 1600 650 300 Other: Voiding Method Indwelling Catheter External Catheter - Labs CBC & Chem 7: 02/18/24 08:15 02/19/24 07:05 Labs: Abnormal Lab Results - Last 24 Hours (Table) 02/19/24 Range/Units 07:05 Sodium 132 L (137-145) mmol/L Creatinine 0.43 L (0.52-1.04) mg/dL Assessment and Plan Plan: Assessment: 1. Hyponatremia. Component of hypovolemia and poor solute intake. Status post salt tab last night. Sodium 132 this morning. TSH normal. Urine sodium 21. Urine osmolality 232 and 178 when repeated. Status post [facility] February 18, 2024. 2. Status post fall. 3. Alcohol abuse. 4. Benign hypertension. Controlled. 5. Hypokalemia from poor intake. Replaced. Better. 6. Abdominal aortic aneurysm. Vascular surgery following. Status post endovascular aortic repair with graft February 17, 2024. 7. Hypomagnesemia from poor intake. On oral magnesium oxide. Improved. Plan: Encouraged oral intake. Maintain fluid restriction. Repeat labs in the morning.
--- NOTE | 2024-02-19 12:23 | P.PN ---
Subjective Progress Note Date: 02/19/24 Principal diagnosis: Weakness. Patient is a 88-year-old white female with past medical history significant for hypertension, hyperlipidemia, osteoporosis, and alcoholism. Patient currently reportedly drinks 2, 24 ounce beers per day. She lives with her [id number]. Reportedly treated outpatient approximately 1 month ago for urinary tract infection. Her primary care provider is a nurse practitioner Marleny Cheema. She has been very weak. Reports reduced appetite. Continues to drink beer. Patient did have a fall last night, she was reportedly in the bathroom and lost her balance. She fell against the toilet, and landed on her bottom. Denies hitting her head. Denies losing consciousness. She was found to be severely hyponatremic in the emergency room. I was called by the ER physician, for an ICU evaluation. Patient reportedly appeared to have dry mucous membranes and hypovolemic. While in the emergency room, patient was given a 1 L normal saline bolus, and IV normal saline was started at 75 mL/h. Subsequent sodium improved to 116. Nephrology has been consulted for management. Appropriate urine studies are pending. No altered mental status. No seizures. Patient is currently resting comfortably on 1 L/min nasal cannula. No acute distress. Ch est x-ray on admission showed cardiomegaly with mild pulmonary vascular congestion. Patient reportedly does take Lasix outpatient. On my evaluation, she does have lower extremity swelling. Denies any nausea, vomiting, diarrhea, abdominal pain. Multiple CAT scans have been performed including a CT of the cervical spine without contrast which did not show any acute fractures or subluxation of the cervical spine. There was a CT of the pelvis which did not show any acute osseous traumatic injury involving the pelvis. A CT of the thoracic aorta showed a fusiform infrarenal abdominal aortic aneurysm measuring 8.2 x 8.5 cm in size. There was eccentric atheromatous material noted internally within the aneurysm. No dissection or penetrating ulcer. There was mild hydroureteronephrosis with ureterectasis extending to the bladder. No obstructive ureteral stones. CBC on arrival: WBC count 7.2, hemoglobin 16.3, hematocrit 40.1, platelets 355. Most recent follow-up BMP includes a sodium 11 6, potassium 3.3, chloride 89, serum bicarb 22, BUN 4, creatinine 0.39, glucose 86. LFTs mildly elevated. Urinalysis unremarkable. Urine toxicology screen also unremarkable. Serum alcohol level 87. Patient denies any history of delirium tremens or alcohol withdrawal seizures. No known history of malignancy. If the patient is not going to be given 3% sodium chloride, no need for ICU admission. Progress note dated February 15, 2024. 88-year-old female admitted with a diagnosis of weakness, and hyponatremia. Currently, she is seen today in room 351. She is getting saline at 50 cc an hour. She is getting oxygen by nasal cannula 2 L. She appears to be relatively stable. Current laboratory data includes a white count 6.8, hemoglobin 15.2, hematocrit 46.7, and a normal platelet count. Sodium is up to 126, from 118. Potassium 3.2, chlorides 92, CO2 30, BUN 6, creatinine 0.49. Bilirubin is 1.7. AST is 61. Albumin is 3.8. Troponins were 0.012, 0.013, and less than 0.012. Progress note dated February 16, 2024. 88-year-old female admitted with a diagnosis of weakness, and hyponatremia. Currently, she is seen today in room 351. She is on 2 L of oxygen. Today sodium is up to 128. She appears to be relatively stable. I asked her why she drinks so much beer, and she states "I like it". She appears relatively comfortable. Additional laboratory data includes a white count 5.8, hemoglobin 13.8, hematocrit 42.6, platelet count 250,000. Sodium 128, potassium 3.9, chlorides 100, CO2 27, BUN 7, creatinine 0.45. The patient's AST is 51. Albumin is 3.2. Progress note dated February 17, 2024. The patient is seen today room 351. She is on saline at 20 cc an hour, and oxygen by nasal cannula at 4 L. She appears in no distress. She is much more awake and alert. She is feeling better. Current laboratory data includes a white count 7.9, hemoglobin 13.6, hematocrit 42.1, and platelet count 220,000. Sodium 127, potassium 3.8, chloride 99, CO2 28, BUN 8, and creatinine 0.43. Albumin is 2.9. Progress note dated February 18, 2024. The patient is seen today in room 351. The patient continues to show steady improvement. She is currently on 4 L. She is receiving lactated Ringer's at 20 cc an hour. She has no specific complaints. She was admitted with a diagnosis of hyponatremia, from excessive beer drinking. Current laboratory data includes a white count 10.4, hemoglobin 12.7, hematocrit 39, and a normal platelet count. Sodium 127, potassium 3.4, chloride 96, CO2 29, BUN 8, creatinine 0.46. Glucose 129. Calcium 8.2, magnesium 1.5. Progress note dated February 19, 2024. The patient is seen today in room 351. The patient is on 4 L of oxygen by nasal cannula. She is not receiving any IV fluids. Today sodium is up to 132. The patient is alert, and is doing much better. The rest of her labs include a potassium of 3.9, chlorides 100, CO2 30, BUN 7, creatinine 0.43. Calcium is 8.5. Magnesium is 2.0. Objective - Vital Signs Vital signs: Vital Signs Temp 98.6 F 02/19/24 08:00 Pulse 80 02/19/24 08:00 Resp 16 02/19/24 08:00 BP 130/70 02/19/24 08:00 Pulse Ox 94 L 02/19/24 08:00 FiO2 Intake & Output 02/18/24 02/19/24 02/19/24 18:59 06:59 18:59 Intake Total 118 20 190 Output Total 1600 650 300 Balance -1482 -630 -110 Intake: IV 20 10 Invasive Line 2 20 10 Oral 118 180 Output: Urine 1600 650 300 Other: Voiding Method Indwelling Catheter External Catheter External Catheter - Exam No acute distress, oriented 3. The patient is currently on 4 L by nasal cannu la. HEENT examination is grossly unremarkable. Mucous membranes are moist. No oral lesions. Neck supple. Full range of motion. No adenopathy thyromegaly or neck vein distention. Cardiovascular examination reveals regular rhythm rate. S1-S2 normal. No S3 or S4. No discernible murmur noted. Heart rate 80 bpm. Heart sounds are distant. Lungs reveal clear breath sounds. Breath sounds are equal bilaterally. No adventitious lung sounds including wheezes rhonchi or crackles. 4 L saturation is 97 %. Abdomen soft bowel sounds are heard. No masses or tenderness. Extremities are intact. No cyanosis or clubbing. Mild edema noted. Skin is without rash or lesion. Neurologic examination is brief but nonfocal. - Labs CBC & Chem 7: 02/18/24 08:15 02/19/24 07:05 Labs: Abnormal Lab Results - Last 24 Hours (Table) 02/19/24 Range/Units 07:05 Sodium 132 L (137-145) mmol/L Creatinine 0.43 L (0.52-1.04) mg/dL Assessment and Plan Assessment: Fall, with generalized weakness. Alcohol intoxication, serum alcohol level 87. Severe hyponatremia, improved, secondary to beer potomania. Acute hypoxemic respiratory failure, secondary to mild pulmonary vascular congestion, and possible CHF. Fusiform infrarenal abdominal aortic aneurysm, measuring 8.2 x 8.5 cm. History of chronic alcohol abuse. Former tobacco dependence. History of hypertension. History of hyperlipidemia. Plan: Plan dated February 15, 2024. The patient is receiving saline at 50 cc an hour. The patient is on oxygen at 2 L. Her sodium today was 126. She was admitted with a sodium of 113. Labs, x- rays, and all medications are reviewed. We will continue to follow the patient, make recommendations along the way. The patient is a DO NOT RESUSCITATE patient. No additional recommendations are made at this time. Prognosis is guarded. Plan dated February 16, 2024. The patient is doing much better. She is much more awake and alert. She still very weak. Her sodium today is up to 128. Labs, x-rays, and medications are reviewed. The patient continues on 2 L of oxygen. The patient is not receiving any IV fluids. We will continue to follow the patient. Prognosis is guarded. Her respiratory status is stable. Plan dated February 17, 2024. The patient is doing much better. Today sodium is a bit down, from yesterday. Yesterday her sodium was 128. It is 127 today. She is much more awake and alert. She continues on oxygen at 4 L. Her vital signs are otherwise stable. She denies any shortness of breath, cough, wheezing, chest tightness, or phlegm production. We will continue to follow. Prognosis is guarded. Plan dated February 18, 2024. The patient appears to be doing well. Her sodium today is 127. That is what it was yesterday. She continues on 4 L of oxygen. The patient is receiving lactated Ringer's at 20 cc an hour. We will continue to follow make recommendations along the way. Overall prognosis remains very guarded. Labs, x-rays, and medications are reviewed. Plan dated February 19, 2024. The patient is doing much better. The patient's initial sodium was 113. The patient drinks a lot of beer at home. He was counseled about the importance of not doing that anymore. Today sodium is up to 132. Labs, x-rays, and medications are reviewed. She continues on oxygen therapy. No IV fluids. Prognosis is guarded. Discharge planning is underway. Time with Patient: Less than 30
--- NOTE | 2024-02-19 17:50 | P.PN ---
Subjective Progress Note Date: 02/19/24 Assumed care of this patient today by the primary care provider. Patient is evaluated in follow up today with sodium level of 127 after receiving sodium chloride tab yesterday. Nephrology following. 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 Sodium level is 127 again today. Potassium 3.5, magnesium 1.5. Patient is on fluid restriction will need to see physical therapy. 02/19/2024 Patient is evaluated today postoperative day #2 endovascular aortic repair with graft. Has been mostly resting in bed. Received a dose of samsca yesterday. Sodium is up to 132. Potassium 3.9, magnesium 2.0. Review of Systems Constitutional: Denied any fatigue denied any fever. Cardio vascular: denied any chest pain, palpitations Gastrointestinal: denied any nausea, vomiting, diarrhea Pulmonary: Denied any shortness of breath cough Neurologic denied any new focal deficits All inpatient medications were reviewed and appropriate changes in these medications as dictated in the interval history and assessment and plan. PHYSICAL EXAMINATION: GENERAL: The patient is alert and oriented x3, not in any acute distress. Well developed, well nourished. HEENT: Pupils are round and equally reacting to light. EOMI. No scleral icterus. No conjunctival pallor. Normocephalic, atraumatic. No pharyngeal erythema. No thyromegaly. CARDIOVASCULAR: S1 and S2 present. No murmurs, rubs, or gallops. PULMONARY: Chest is clear to auscultation, no wheezing or crackles. ABDOMEN: Soft, nontender, nondistended, normoactive bowel sounds. No palpable organomegaly. MUSCULOSKELETAL: No joint swelling or deformity. Bilateral groin punctures soft with no bruising or swelling noted. EXTREMITIES: No cyanosis, clubbing, or pedal edema. NEUROLOGICAL: Gross neurological examination did not reveal any focal deficits. SKIN: No rashes. Assessment and Plan Infrarenal AAA postoperative day #2 endovascular aortic repair with graft Hyponatremia, hypovolemic and poor oral intake. Patient is off IV fluids and now on fluid restriction. Status post sodium chloride tab with minimal improvement. Sodium up to 132 post samsca. Status post fall at home due to generalized weakness and dehydration Hypertension continue to monitor. Continues on home dose of amlodipine. PRN hydralazine. Hx of alcoholism Hypomagnesemia/hypokalemia improved with supplementation. Repeat BMP/Mag in the AM. Hyperlipidemia maintained on statin therapy Former smoker GI prophylaxis DVT prophylaxis Do Not Resuscitate/Do Not Intubate Patient will need to see PT/OT for discharge planning repeat blood work in the AM. The impression and plan of care has been dictated by Cecile Beatty Nurse Practitioner as directed. Dr. jM MD I have performed a history and physical examination and medical decision making of this patient, discussed the same with the dictator, and agree with the dictators assessment and plan as written, documented as a scribe. Based on total visit time, I have performed more than 50% of this visit. Objective - Vital Signs Vital signs: Vital Signs Temp 98.6 F 02/19/24 08:00 Pulse 80 02/19/24 12:00 Resp 18 02/19/24 12:00 BP 118/56 02/19/24 12:00 Pulse Ox 95 02/19/24 12:00 FiO2 Intake & Output 02/18/24 02/19/24 02/19/24 18:59 06:59 18:59 Intake Total 118 20 200 Output Total 8806 140 3519 Balance -1482 -630 -1000 Intake: IV 20 20 Invasive Line 2 20 20 Oral 118 180 Output: Urine 9730 192 4779 Other: Voiding Method Indwelling Catheter External Catheter External Catheter - Labs CBC & Chem 7: 02/18/24 08:15 02/19/24 07:05 Labs: Abnormal Lab Results - Last 24 Hours (Table) 02/19/24 Range/Units 07:05 Sodium 132 L (137-145) mmol/L Creatinine 0.43 L (0.52-1.04) mg/dL Assessment and Plan Time with Patient: Less than 30
[2024-02-20 07:31] LABS: African American GFR (CKD) >90 (>60 ml/min/1.73 sqM); Anion Gap 1 mmol/L; Blood Urea Nitrogen 8 mg/dL (7-17); Calcium 8.6 mg/dL (8.4-10.2); Carbon Dioxide 33 mmol/L (22-30); Chloride 97 mmol/L (98-107); Glucose 90 mg/dL (74-99); Magnesium 1.7 mg/dL (1.6-2.3); Non-African American GFR(CKD) >90 (>60 ml/min/1.73 sqM); Potassium 3.8 mmol/L (3.5-5.1); Sodium 131 mmol/L (137-145)
--- NOTE | 2024-02-20 08:31 | P.DS ---
Providers Date of admission: 02/14/24 03:06 Attending physician: Andrew Morris Consults: 02/14/24 00:22 Consult Physician Routine Consulting Provider: Jeff Conrad Consult Reason/Comments: hyponatremia Do you want consulting provider notified?: Yes 02/14/24 03:05 Consult Physician Routine Consulting Provider: Ines Thorpe Consult Reason/Comments: Hyponatremia Do you want consulting provider notified?: Yes 02/14/24 04:08 Consult Physician Routine Consulting Provider: Karel Shultz Consult Reason/Comments: AAA Do you want consulting provider notified?: Yes, Notify in am 02/14/24 08:09 Consult Physician Routine Consulting Provider: Cassius Armstrong Consult Reason/Comments: cardiac clearance for EVAR, 02/17/24 Do you want consulting provider notified?: Yes Primary care physician: Andrew Morris - Discharge Diagnosis(es) (1) Hyponatremia Current Visit: Yes Status: Acute (2) Nausea Current Visit: Yes Status: Acute (3) Alcohol abuse Current Visit: Yes Status: Acute (4) Hypertension Current Visit: Yes Status: Acute (5) Fall Current Visit: Yes Status: Acute (6) Infrarenal abdominal aortic aneurysm (AAA) without rupture Current Visit: Yes Status: Acute (7) Hyperlipemia Current Visit: Yes Status: Acute Hospital Course: This is an 88-year-old female who originally presented to the emergency depart ment after complaints of a fall. While in the emergency room she was found to be severely hyponatremic and also was found to have a fusiform infrarenal abdominal aortic aneurysm. Patient does have a history of alcoholism, reportedly drinking 2 24 ounce beers a day. On Tuesday patient underwent a EVAR and tolerated the procedure well. Physical therapy is recommending subacute rehab for discharge. Patient sodium is improving, 131 today. Discussion with patient on importance of quitting alcohol. Vitals are stable. She is tolerating diet. Patient may be discharged to subacute rehab when cleared by consultants. Patient seen and evaluated by nurse practitioner, physician in agreement with plan Patient Condition at Discharge: Stable Plan - Discharge Summary Discharge Rx Participant: No New Discharge Prescriptions: Continue traZODone HCL [Desyrel] 25 mg PO HS amLODIPine [Norvasc] 10 mg PO DAILY Omeprazole [PriLOSEC] 20 mg PO DAILY Atorvastatin Calcium [Lipitor] 40 mg PO DAILY Escitalopram [Lexapro] 20 mg PO DAILY Discharge Medication List Atorvastatin Calcium [Lipitor] 40 mg PO DAILY 08/15/22 [History] Omeprazole [PriLOSEC] 20 mg PO DAILY 08/15/22 [History] amLODIPine [Norvasc] 10 mg PO DAILY 08/15/22 [History] traZODone HCL [Desyrel] 25 mg PO HS 08/15/22 [History] Escitalopram [Lexapro] 20 mg PO DAILY 02/14/24 [History] Follow up Appointment(s)/Referral(s): Andrew Morris MD [Primary Care Provider] - 1-2 days Activity/Diet/Wound Care/Special Instructions: Recommend repeat CMP in 2 days. Discharge/Stand Alone Forms: AA Meetings [facility], Outpatient Counseling Discharge Disposition: TRANSFER TO SNF/ECF
--- NOTE | 2024-02-20 11:24 | P.PN ---
Subjective Progress Note Date: 02/20/24 Principal diagnosis: AAA Patient is seen and examined today as a follow-up. She is up in the bedside chair. She denies any abdominal pain, nausea or vomiting. Denies shortness of breath or chest pain. States she had a bowel movement yesterday. Denies any pain in her lower extremities. Objective - Vital Signs Vital signs: Vital Signs Temp 98.7 F 02/20/24 08:50 Pulse 64 02/20/24 08:50 Resp 16 02/20/24 08:50 BP 127/66 02/20/24 08:50 Pulse Ox 95 02/20/24 08:50 FiO2 Intake & Output 02/19/24 02/20/24 02/20/24 18:59 06:59 18:59 Intake Total 390 260 130 Output Total 1459 853 3657 Balance -810 110 -1070 Intake: IV 30 20 10 Invasive Line 2 30 20 10 Oral 360 240 120 Output: Urine 9709 215 0836 Other: Voiding Method External Catheter External Catheter # Bowel Movements 0 - Exam General appearance: The patient is alert, oriented, appears in no acute distress. HET: Head is normocephalic and atraumatic. Neck: Supple. Heart: Regular. Lungs: Equal expansion, normal respiratory effort. Abdomen: Soft, nontender, nondistended. Extremities: Normal skin color and turgor. Bilateral groins with dressing clean dry and intact without any sign of bleeding or hematoma. Palpable DP pulses. Neurological: Alert and oriented. - Labs CBC & Chem 7: 02/18/24 08:15 02/20/24 06:45 Labs: Abnormal Lab Results - Last 24 Hours (Table) 02/20/24 Range/Units 06:45 Sodium 131 L (137-145) mmol/L Chloride 97 L (98-107) mmol/L Carbon Dioxide 33 H (22-30) mmol/L Creatinine 0.45 L (0.52-1.04) mg/dL Assessment and Plan Assessment: 1. Asymptomatic abdominal aortic aneurysm measuring 8 x 8 cm status post endovascular abdominal aortic repair With alto graft 2. Hyponatremia 3. Fall 4. Hypertension 5. Hyperlipidemia 6. Daily Alcohol use 7. Low back pain Plan: 1. Patient is status post endovascular abdominal aortic repair 2. Encourage ambulation 3. Discharge instructions reviewed with patient 4. Patient is cleared from vascular surgery for discharge 5. Rest of medical management per primary medical team Thank you for this consultation, we will sign off at this time. The impression and plan of care has been dictated as directed. I performed a history and examination of this patient, discussed the same with the dictator. I agree with the dictator's note ,documented as a scribe. Any additional findings or plans will be noted.
[2024-02-20] MEDS ORDERED: LORazepam 2 MG/ML INJ IV PRN ×3 (11:52→11:53)
--- NOTE | 2024-02-20 13:56 | P.PN ---
Subjective patient is seen for follow-up for hyponatremia. Status post [facility] on 02/18/2024. Serum sodium at 131 today. No significant complaints. Tolerating oral intake. Objective - Vital Signs Vital signs: Vital Signs Temp 98.7 F 02/20/24 08:50 Pulse 75 02/20/24 13:36 Resp 16 02/20/24 13:36 BP 126/72 02/20/24 11:43 Pulse Ox 91 L 02/20/24 11:43 FiO2 Intake & Output 02/19/24 02/20/24 02/20/24 18:59 06:59 18:59 Intake Total 390 260 268 Output Total 9593 021 9047 Balance -810 110 -932 Intake: IV 30 20 30 Invasive Line 2 30 20 30 Oral 360 240 238 Output: Urine 5119 839 0396 Other: Voiding Method External Catheter External Catheter External Catheter # Bowel Movements 0 - Exam patient is awake, comfortable, no acute distress. Examination of the heart S1 and S2 Examination the lungs bilateral breath sounds are heard Abdomen is soft nontender Examination of lower extremities shows no significant edema. VINE PRUNER exam grossly intact - Labs CBC & Chem 7: 02/18/24 08:15 02/20/24 06:45 Labs: Abnormal Lab Results - Last 24 Hours (Table) 02/20/24 Range/Units 06:45 Sodium 131 L (137-145) mmol/L Chloride 97 L (98-107) mmol/L Carbon Dioxide 33 H (22-30) mmol/L Creatinine 0.45 L (0.52-1.04) mg/dL Assessment and Plan Assessment: 1. Hyponatremia. Component of hypovolemia and poor solute intake. status post IV fluids on initial admission. History of excessive beer intake. Sodium 131 this morning. TSH normal. Urine sodium 21. Urine osmolality 232 and 178 when repeated. Status post [facility] February 18, 2024. 2. Status post fall. 3. Alcohol abuse. 4. Benign hypertension. Controlled. 5. Hypokalemia from poor intake. Replaced. Better. 6. Abdominal aortic aneurysm. Vascular surgery following. Status post endovascular aortic repair with graft February 17, 2024. 7. Hypomagnesemia from poor intake. On oral magnesium oxide. Improved. Plan: continue off of IV fluids. Encouraged increased oral intake particularly protein. Avoid excessive beer intake.
--- NOTE | 2024-02-20 15:31 | P.PN ---
Subjective Progress Note Date: 02/20/24 Patient is a 88-year-old white female with past medical history significant for hypertension, hyperlipidemia, osteoporosis, and alcoholism. Patient currently reportedly drinks 2, 24 ounce beers per day. She lives with her [id number]. Reportedly treated outpatient approximately 1 month ago for urinary tract infection. Her primary care provider is a nurse practitioner Marleny Cheema. She has been very weak. Reports reduced appetite. Continues to drink beer. Patient did have a fall last night, she was reportedly in the bathroom and lost her balance. She fell against the toilet, and landed on her bottom. Denies hitting her head. Denies losing consciousness. She was found to be severely hyponatremic in the emergency room. I was called by the ER physician, for an ICU evaluation. Patient reportedly appeared to have dry mucous membranes and hypovolemic. While in the emergency room, patient was given a 1 L normal saline bolus, and IV normal saline was started at 75 mL/h. Subsequent sodium improved to 116. Nephrology has been consulted for management. Appropriate urine studies are pending. No altered mental status. No seizures. Patient is currently resting comfortably on 1 L/min nasal cannula. No acute distress. Chest x-ray on admission showed cardiomegaly with mild pulmonary vascular congestion. Patient reportedly does take Lasix outpatient. On my evaluation, she does have lower extremity swelling. Denies any nausea, vomiting, diarrhea, abdominal pain. Multiple CAT scans have been performed including a CT of the cervical spine without contrast which did not show any acute fractures or subluxation of the cervical spine. There was a CT of the pelvis which did not show any acute osseous traumatic injury involving the pelvis. A CT of the thoracic aorta showed a fusiform infrarenal abdominal aortic aneurysm measuring 8.2 x 8.5 cm in size. There was eccentric atheromatous material noted internally within the aneurysm. No dissection or penetrating ulcer. There was mild hydroureteronephrosis with ureterectasis extending to the bladder. No obstructive ureteral stones. CBC on arrival: WBC count 7.2, hemoglobin 16.3, hematocrit 40.1, platelets 355. Most recent follow-up BMP includes a sodium 116, potassium 3.3, chloride 89, serum bicarb 22, BUN 4, creatinine 0.39, glucose 86. LFTs mildly elevated. Urinalysis unremarkable. Urine toxicology screen also unremarkable. Serum alcohol level 87. Patient denies any history of delirium tremens or alcohol withdrawal seizures. No known history of malignancy. If the patient is not going to be given 3% sodium chloride, no need for ICU admission. Progress note dated February 15, 2024. 88-year-old female admitted with a diagnosis of weakness, and hyponatremia. Currently, she is seen today in room 351. She is getting saline at 50 cc an hour. She is getting oxygen by nasal cannula 2 L. She appears to be relatively stable. Current laboratory data includes a white count 6.8, hemoglobin 15.2, hematocrit 46.7, and a normal platelet count. Sodium is up to 126, from 118. Potassium 3.2, chlorides 92, CO2 30, BUN 6, creatinine 0.49. Bilirubin is 1.7. AST is 61. Albumin is 3.8. Troponins were 0.012, 0.013, and less than 0.012. Progress note dated February 16, 2024. 88-year-old female admitted with a diagnosis of weakness, and hyponatremia. Currently, she is seen today in room 351. She is on 2 L of oxygen. Today sodium is up to 128. She appears to be relatively stable. I asked her why she drinks so much beer, and she states "I like it". She appears relatively comfortable. Additional laboratory data includes a white count 5.8, hemoglobin 13.8, hematocrit 42.6, platelet count 250,000. Sodium 128, potassium 3.9, chlorides 100, CO2 27, BUN 7, creatinine 0.45. The patient's AST is 51. Albumin is 3.2. Progress note dated February 17, 2024. The patient is seen today room 351. She is on saline at 20 cc an hour, and oxygen by nasal cannula at 4 L. She appears in no distress. She is much more awake and alert. She is feeling better. Current laboratory data includes a white count 7.9, hemoglobin 13.6, hematocrit 42.1, and platelet count 220,000. Sodium 127, potassium 3.8, chloride 99, CO2 28, BUN 8, and creatinine 0.43. Albumin is 2.9. Progress note dated February 18, 2024. The patient is seen today in room 351. The patient continues to show steady improvement. She is currently on 4 L. She is receiving lactated Ringer's at 20 cc an hour. She has no specific complaints. She was admitted with a diagnosis of hyponatremia, from excessive beer drinking. Current laboratory data includes a white count 10.4, hemoglobin 12.7, hematocrit 39, and a normal platelet count. Sodium 127, potassium 3.4, chloride 96, CO2 29, BUN 8, creatinine 0.46. Glucose 129. Calcium 8.2, magnesium 1.5. Progress note dated February 19, 2024. The patient is seen today in room 351. The patient is on 4 L of oxygen by nasal cannula. She is not receiving any IV fluids. Today sodium is up to 132. The patient is alert, and is doing much better. The rest of her labs include a potassium of 3.9, chlorides 100, CO2 30, BUN 7, creatinine 0.43. Calcium is 8.5. Magnesium is 2.0. On today's evaluation on 02/20/2024, the patient is calm, slightly restless yet there is no altered mentation, no agitation. His electrolytes are stable. Sodium level is improving currently up to 131, bicarbonate 33, potassium is at 3.8, BUN is at 8 with a creatinine of 0.5. The patient remains on the Ativan pr otocol. No respiratory difficulties and the patient's pulse ox 91% on room air oxygen. Clinically stable. Hemodynamically stable. Objective - Vital Signs Vital signs: Vital Signs Temp 98.7 F 02/20/24 08:50 Pulse 64 02/20/24 08:50 Resp 16 02/20/24 08:50 BP 127/66 02/20/24 08:50 Pulse Ox 95 02/20/24 08:50 FiO2 Intake & Output 02/19/24 02/20/24 02/20/24 18:59 06:59 18:59 Intake Total 390 260 130 Output Total 5550 732 3375 Balance -810 110 -1070 Intake: IV 30 20 10 Invasive Line 2 30 20 10 Oral 360 240 120 Output: Urine 2013 831 5952 Other: Voiding Method External Catheter External Catheter External Catheter # Bowel Movements 0 - Exam No acute distress, oriented 3. The patient is currently on room air oxygen HEENT examination is grossly unremarkable. Mucous membranes are moist. No oral lesions. Neck supple. Full range of motion. No adenopathy thyromegaly or neck vein distention. Cardiovascular examination reveals regular rhythm rate. S1-S2 normal. No S3 or S4. No discernible murmur noted. Heart sounds are distant. Lungs reveal clear breath sounds. Breath sounds are equal bilaterally. No adventitious lung sounds including wheezes rhonchi or crackles. Abdomen soft bowel sounds are heard. No masses or tenderness. Extremities are intact. No cyanosis or clubbing. Mild edema noted. Skin is without rash or lesion. Neurologic examination is brief but nonfocal. - Labs CBC & Chem 7: 02/18/24 08:15 02/20/24 06:45 Labs: Abnormal Lab Results - Last 24 Hours (Table) 02/20/24 Range/Units 06:45 Sodium 131 L (137-145) mmol/L Chloride 97 L (98-107) mmol/L Carbon Dioxide 33 H (22-30) mmol/L Creatinine 0.45 L (0.52-1.04) mg/dL Assessment and Plan Plan: Fall, with generalized weakness. This is attributed to alcoholism, acute al cohol intoxication and significant hyponatremia was present at time of admission, sodium level is improved. Alcohol intoxication, serum alcohol level 87. Recovered and there is no signs of any acute delirium tremens at this point in time. Severe hyponatremia, improved, secondary to beer potomania. Sodium level is improved Acute hypoxemic respiratory failure, secondary to mild pulmonary vascular congestion, and possible CHF. Oxygenation has improved and the patient is currently on room air oxygen. Fusiform infrarenal abdominal aortic aneurysm, measuring 8.2 x 8.5 cm. The patient is status post endovascular stent grafting that was done on 02/17/2024. History of chronic alcohol abuse. Former tobacco dependence. History of hypertension. History of hyperlipidemia. Plan: Clinically stable, electrolytes are also stable vascular surgery is on the case. No other active issues for now. Continue same medication. Will continue to follow.
[2024-02-21 08:01] VITALS: BMI 25.0
[2024-02-21 08:15] VITALS: RESP 16; TEMP 97.9
--- NOTE | 2024-02-21 08:34 | P.PN ---
Subjective Progress Note Date: 02/21/24 Awaiting discharge to ECF when insurance approves and a bed is available for patient. She may be discharged when that is complete. Objective - Vital Signs Vital signs: Vital Signs Temp 97.9 F 02/21/24 08:14 Pulse 75 02/21/24 08:14 Resp 16 02/21/24 08:14 BP 131/69 02/21/24 08:14 Pulse Ox 92 L 02/21/24 08:14 FiO2 Intake & Output 02/20/24 02/21/24 02/21/24 18:59 06:59 18:59 Intake Total 386 260 10 Output Total 1200 650 Balance -814 -390 10 Weight 72.575 kg Intake: IV 30 20 10 Invasive Line 2 30 20 10 Oral 356 240 Output: Urine 1200 650 Other: Voiding Method External Catheter External Catheter # Voids 0 # Bowel Movements 0 - Labs CBC & Chem 7: 02/18/24 08:15 02/20/24 06:45 Assessment and Plan (1) Hyponatremia Current Visit: Yes Status: Acute Code(s): E87.1 - HYPO-OSMOLALITY AND HYPONATREMIA SNOMED Code(s): 98491545 (2) Nausea Current Visit: Yes Status: Acute Code(s): R11.0 - NAUSEA SNOMED Code(s): 736172493 (3) Alcohol abuse Current Visit: Yes Status: Acute Code(s): F10.10 - ALCOHOL ABUSE, UNCOMPLICATED SNOMED Code(s): 36344995 (4) Hypertension Current Visit: Yes Status: Acute Code(s): I10 - ESSENTIAL (PRIMARY) HYPERTENSION SNOMED Code(s): 90837691 (5) Fall Current Visit: Yes Status: Acute Code(s): W19.XXXA - UNSPECIFIED FALL, INITIAL ENCOUNTER SNOMED Code(s): 9841023 (6) Infrarenal abdominal aortic aneurysm (AAA) without rupture Current Visit: Yes Status: Acute Code(s): I71.43 - INFRARENAL ABDOMINAL AORTIC ANEURYSM, WITHOUT RUPTURE SNOMED Code(s): 621897917 (7) Hyperlipemia Current Visit: Yes Status: Acute Code(s): E78.5 - HYPERLIPIDEMIA, UNSPECIFIED SNOMED Code(s): 04847290
--- NOTE | 2024-02-21 09:20 | P.PN ---
Subjective Progress Note Date: 02/21/24 Principal diagnosis: AAA Patient is seen and examined today as a follow-up. She is sitting up in bed without any complaints. She denies any abdominal pain, no pain in her groins or lower extremities. She is awaiting placement at [facility] and insurance authorization. Objective - Vital Signs Vital signs: Vital Signs Temp 98.6 F 02/21/24 03:30 Pulse 81 02/21/24 03:30 Resp 17 02/21/24 03:30 BP 128/74 02/21/24 03:30 Pulse Ox 91 L 02/21/24 03:30 FiO2 Intake & Output 02/20/24 02/21/24 02/21/24 18:59 06:59 18:59 Intake Total 386 260 10 Output Total 1200 650 Balance -814 -390 10 Intake: IV 30 20 10 Invasive Line 2 30 20 10 Oral 356 240 Output: Urine 1200 650 Other: Voiding Method External Catheter External Catheter # Voids 0 # Bowel Movements 0 - Exam General appearance: The patient is alert, oriented, appears in no acute distress. HET: Head is normocephalic and atraumatic. Neck: Supple. Heart: Regular. Lungs: Equal expansion, normal respiratory effort. Abdomen: Soft, nontender, nondistended. Extremities: Normal skin color and turgor. Bilateral groin access sites without any sign of bleeding or hematoma. Palpable DP pulses. Neurological: Alert and oriented. - Labs CBC & Chem 7: 02/18/24 08:15 02/20/24 06:45 Assessment and Plan Assessment: 1. Asymptomatic abdominal aortic aneurysm measuring 8 x 8 cm status post endovascular abdominal aortic repair With alto graft 2. Hyponatremia 3. Fall 4. Hypertension 5. Hyperlipidemia 6. Daily Alcohol use 7. Low back pain Plan: 1. Patient is status post endovascular abdominal aortic repair 2. Encourage ambulation 3. Discharge instructions reviewed with patient 4. Patient is cleared from vascular surgery for discharge 5. Rest of medical management per primary medical team Thank you for this consultation, we will sign off at this time. The impression and plan of care has been dictated as directed. Dr. Shultz I performed a history and examination of this patient, discussed the same with the dictator. I agree with the dictator's note ,documented as a scribe. Any additional findings or plans will be noted.
[2024-02-21 11:38] VITALS: BP 136/67; PULSE 79
--- NOTE | 2024-02-21 12:21 | P.PN ---
Subjective patient is seen for follow-up for hyponatremia. Status post [facility] on 02/18/2024. Serum sodium at 131 yesterday. Labs are pending from today. No significant complaints. Tolerating oral intake. Objective - Vital Signs Vital signs: Vital Signs Temp 97.9 F 02/21/24 08:14 Pulse 79 02/21/24 11:37 Resp 16 02/21/24 11:37 BP 136/67 02/21/24 11:37 Pulse Ox 91 L 02/21/24 11:37 FiO2 Intake & Output 02/20/24 02/21/24 02/21/24 18:59 06:59 18:59 Intake Total 386 260 250 Output Total 1200 650 450 Balance -814 -390 -200 Weight 72.575 kg Intake: IV 30 20 10 Invasive Line 2 30 20 10 Oral 356 240 240 Output: Urine 1200 650 450 Other: Voiding Method External Catheter External Catheter External Catheter # Voids 0 # Bowel Movements 0 - Exam patient is awake, comfortable, no acute distress. Examination of the heart S1 and S2 Examination the lungs bilateral breath sounds are heard Abdomen is soft nontender Examination of lower extremities shows no significant edema. DUPLEX TRIMMER exam grossly intact - Labs CBC & Chem 7: 02/18/24 08:15 02/20/24 06:45 Assessment and Plan Assessment: 1. Hyponatremia. Component of hypovolemia and poor solute intake. status post IV fluids on initial admission. History of excessive beer intake. Sodium 131 this morning. TSH normal. Urine sodium 21. Urine osmolality 232 and 178 when repeated. Status post [facility] February 18, 2024. 2. Status post fall. 3. Alcohol abuse. 4. Benign hypertension. Controlled. 5. Hypokalemia from poor intake. Replaced. Better. 6. Abdominal aortic aneurysm. Vascular surgery following. Status post endovascular aortic repair with graft February 17, 2024. 7. Hypomagnesemia from poor intake. On oral magnesium oxide. Improved. Plan: continue off of IV fluids. Check sodium today Encouraged increased oral intake particularly protein. Avoid excessive beer intake.
--- NOTE | 2024-02-21 12:26 | P.PN ---
Subjective Progress Note Date: 02/21/24 Patient is a 88-year-old white female with past medical history significant for hypertension, hyperlipidemia, osteoporosis, and alcoholism. Patient currently reportedly drinks 2, 24 ounce beers per day. She lives with her [id number]. Reportedly treated outpatient approximately 1 month ago for urinary tract infection. Her primary care provider is a nurse practitioner Marleny Cheema. She has been very weak. Reports reduced appetite. Continues to drink beer. Patient did have a fall last night, she was reportedly in the bathroom and lost her balance. She fell against the toilet, and landed on her bottom. Denies hitting her head. Denies losing consciousness. She was found to be severely hyponatremic in the emergency room. I was called by the ER physician, for an ICU evaluation. Patient reportedly appeared to have dry mucous membranes and hypovolemic. While in the emergency room, patient was given a 1 L normal saline bolus, and IV normal saline was started at 75 mL/h. Subsequent sodium improved to 116. Nephrology has been consulted for management. Appropriate urine studies are pending. No altered mental status. No seizures. Patient is currently resting comfortably on 1 L/min nasal cannula. No acute distress. Chest x-ray on admission showed cardiomegaly with mild pulmonary vascular congestion. Patient reportedly does take Lasix outpatient. On my evaluation, she does have lower extremity swelling. Denies any nausea, vomiting, diarrhea, abdominal pain. Multiple CAT scans have been performed including a CT of the cervical spine without contrast which did not show any acute fractures or subluxation of the cervical spine. There was a CT of the pelvis which did not show any acute osseous traumatic injury involving the pelvis. A CT of the thoracic aorta showed a fusiform infrarenal abdominal aortic aneurysm measuring 8.2 x 8.5 cm in size. There was eccentric atheromatous material noted internally within the aneurysm. No dissection or penetrating ulcer. There was mild hydroureteronephrosis with ureterectasis extending to the bladder. No obstructive ureteral stones. CBC on arrival: WBC count 7.2, hemoglobin 16.3, hematocrit 40.1, platelets 355. Most recent follow-up BMP includes a sodium 116, potassium 3.3, chloride 89, serum bicarb 22, BUN 4, creatinine 0.39, glucose 86. LFTs mildly elevated. Urinalysis unremarkable. Urine toxicology screen also unremarkable. Serum alcohol level 87. Patient denies any history of delirium tremens or alcohol withdrawal seizures. No known history of malignancy. If the patient is not going to be given 3% sodium chloride, no need for ICU admission. Progress note dated February 15, 2024. 88-year-old female admitted with a diagnosis of weakness, and hyponatremia. Currently, she is seen today in room 351. She is getting saline at 50 cc an hour. She is getting oxygen by nasal cannula 2 L. She appears to be relatively stable. Current laboratory data includes a white count 6.8, hemoglobin 15.2, hematocrit 46.7, and a normal platelet count. Sodium is up to 126, from 118. Potassium 3.2, chlorides 92, CO2 30, BUN 6, creatinine 0.49. Bilirubin is 1.7. AST is 61. Albumin is 3.8. Troponins were 0.012, 0.013, and less than 0.012. Progress note dated February 16, 2024. 88-year-old female admitted with a diagnosis of weakness, and hyponatremia. Currently, she is seen today in room 351. She is on 2 L of oxygen. Today sodium is up to 128. She appears to be relatively stable. I asked her why she drinks so much beer, and she states "I like it". She appears relatively comfortable. Additional laboratory data includes a white count 5.8, hemoglobin 13.8, hematocrit 42.6, platelet count 250,000. Sodium 128, potassium 3.9, chlorides 100, CO2 27, BUN 7, creatinine 0.45. The patient's AST is 51. Albumin is 3.2. Progress note dated February 17, 2024. The patient is seen today room 351. She is on saline at 20 cc an hour, and oxygen by nasal cannula at 4 L. She appears in no distress. She is much more awake and alert. She is feeling better. Current laboratory data includes a white count 7.9, hemoglobin 13.6, hematocrit 42.1, and platelet count 220,000. Sodium 127, potassium 3.8, chloride 99, CO2 28, BUN 8, and creatinine 0.43. Albumin is 2.9. Progress note dated February 18, 2024. The patient is seen today in room 351. The patient continues to show steady improvement. She is currently on 4 L. She is receiving lactated Ringer's at 20 cc an hour. She has no specific complaints. She was admitted with a diagnosis of hyponatremia, from excessive beer drinking. Current laboratory data includes a white count 10.4, hemoglobin 12.7, hematocrit 39, and a normal platelet count. Sodium 127, potassium 3.4, chloride 96, CO2 29, BUN 8, creatinine 0.46. Glucose 129. Calcium 8.2, magnesium 1.5. Progress note dated February 19, 2024. The patient is seen today in room 351. The patient is on 4 L of oxygen by nasal cannula. She is not receiving any IV fluids. Today sodium is up to 132. The patient is alert, and is doing much better. The rest of her labs include a potassium of 3.9, chlorides 100, CO2 30, BUN 7, creatinine 0.43. Calcium is 8.5. Magnesium is 2.0. On today's evaluation on 02/20/2024, the patient is calm, slightly restless yet there is no altered mentation, no agitation. His electrolytes are stable. Sodium level is improving currently up to 131, bicarbonate 33, potassium is at 3.8, BUN is at 8 with a creatinine of 0.5. The patient remains on the Ativan pr otocol. No respiratory difficulties and the patient's pulse ox 91% on room air oxygen. Clinically stable. Hemodynamically stable. 02/21/2024, seen the patient for a follow-up. Patient is resting comfortably in bed. No specific complaints. No agitation. No altered mentation. Electrolytes are stable with a sodium level of 131, bicarb is at 33 with a BUN of 8 and a creatinine of 0.45. Rest of the medications remain unchanged. She is currently on room air oxygen with a pulse ox of 91%. No signs of any respiratory distress. Objective - Vital Signs Vital signs: Vital Signs Temp 97.9 F 02/21/24 08:14 Pulse 75 02/21/24 08:15 Resp 16 02/21/24 08:15 BP 131/69 02/21/24 08:14 Pulse Ox 92 L 02/21/24 08:14 FiO2 Intake & Output 02/20/24 02/21/24 02/21/24 18:59 06:59 18:59 Intake Total 386 260 10 Output Total 1200 650 Balance -814 -390 10 Weight 72.575 kg Intake: IV 30 20 10 Invasive Line 2 30 20 10 Oral 356 240 Output: Urine 1200 650 Other: Voiding Method External Catheter External Catheter External Catheter # Voids 0 # Bowel Movements 0 - Exam No acute distress, oriented 3. The patient is currently on room air oxygen HEENT examination is grossly unremarkable. Mucous membranes are moist. No oral lesions. Neck supple. Full range of motion. No adenopathy thyromegaly or neck vein distention. Cardiovascular examination reveals regular rhythm rate. S1-S2 normal. No S3 or S4. No discernible murmur noted. Heart sounds are distant. Lungs reveal clear breath sounds. Breath sounds are equal bilaterally. No adventitious lung sounds including wheezes rhonchi or crackles. Abdomen soft bowel sounds are heard. No masses or tenderness. Extremities are intact. No cyanosis or clubbing. Mild edema noted. Skin is without rash or lesion. Neurologic examination is brief but nonfocal. - Labs CBC & Chem 7: 02/18/24 08:15 02/20/24 06:45 Assessment and Plan Plan: Alcoholism, chronic Fall, with generalized weakness. This is attributed to alcoholism, acute alcohol intoxication and significant hyponatremia was present at time of admission, sodium level is improved. Alcohol intoxication, serum alcohol level 87. Recovered and there is no signs of any acute delirium tremens at this point in time. Severe hyponatremia, improved, secondary to beer potomania. Sodium level is i mproved Acute hypoxemic respiratory failure, secondary to mild pulmonary vascular congestion, and possible CHF. Oxygenation has improved and the patient is currently on room air oxygen. Fusiform infrarenal abdominal aortic aneurysm, measuring 8.2 x 8.5 cm. The patient is status post endovascular stent grafting that was done on 02/17/2024. History of chronic alcohol abuse. Former tobacco dependence. History of hypertension. History of hyperlipidemia. Plan: Clinically stable, electrolytes are also stable vascular surgery is on the case. No other active issues for now. Continue same medication. Will continue to follow. Discharge planning is in progress. Consider rehabilitation/ECF
== END 2024-02-21 14:44 | DRG 268 ==
LOC: EC 21:09 → 3SCARD 02-14 03:06
PROVIDERS: ADMIT Family Medicine; ATTEND Family Medicine
PROC: B4201ZZ Computerized Tomography (CT Scan) of Abdominal Aorta using Low Osmolar Contrast (ICD-10-PCS; 2024-02-14)
PROC: 04V03DZ Restriction of Abdominal Aorta with Intraluminal Device, Percutaneous Approach (ICD-10-PCS; principal; 2024-02-17 13:00)
DX: I71.43 Infrarenal abdominal aortic aneurysm, without rupture (principal); J96.01 Acute respiratory failure with hypoxia; E87.1 Hypo-osmolality and hyponatremia; N13.30 Unspecified hydronephrosis; M54.50 Low back pain, unspecified; F10.229 Alcohol dependence with intoxication, unspecified; E78.5 Hyperlipidemia, unspecified; Y90.4 Blood alcohol level of 80-99 mg/100 ml; S22.39XD Fracture of one rib, unspecified side, subsequent encounter for fracture with routine healing; E87.6 Hypokalemia; M81.0 Age-related osteoporosis without current pathological fracture; E83.42 Hypomagnesemia; E87.8 Other disorders of electrolyte and fluid balance, not elsewhere classified; F32.A Depression, unspecified; E86.1 Hypovolemia; E86.0 Dehydration; Y92.009 Unspecified place in unspecified non-institutional (private) residence as the place of occurrence of the external cause; W01.0XXA Fall on same level from slipping, tripping and stumbling without subsequent striking against object, initial encounter; M19.90 Unspecified osteoarthritis, unspecified site; I11.0 Hypertensive heart disease with heart failure; I50.9 Heart failure, unspecified; Z87.891 Personal history of nicotine dependence; Z87.440 Personal history of urinary (tract) infections; Z28.310 Unvaccinated for COVID-19; Z28.21 Immunization not carried out because of patient refusal; Z89.429 Acquired absence of other toe(s), unspecified side; Z88.8 Allergy status to other drugs, medicaments and biological substances; Z71.3 Dietary counseling and surveillance; Z86.79 Personal history of other diseases of the circulatory system; Z99.3 Dependence on wheelchair; Z79.899 Other long term (current) drug therapy; Z79.83 Long term (current) use of bisphosphonates
CPT/HCPCS: 34705; 36415; 70450; 71045; 71275; 72125; 72170; 72192; 74174; 80048; 80053; 80306; 80320; 81003; 83735; 83880; 83930; 83935; 84295; 84300; 84443; 84484; 85025; 85027; 85610; 85730; 86850; 86900; 86901; 93005; 93306; 94640; 94760; 96361; 96372; 96374; 99285